=== PATIENT | female | born 1960 | race Caucasian/White ===

== ENCOUNTER 2016-09-09 13:02 | Emergency (ER) | payer OTHER ==
[2016-09-09] MEDS ORDERED: OLANZapine 10 MG/2 ML VIAL IM ONE (13:28)
[2016-09-09] MEDS ORDERED: OLANZapine DISINTEGR 10 MG TAB ONE (13:35)
[2016-09-09] MEDS ORDERED: OLANZapine DISINTEGR 10 MG TAB PO ONE ×2 (13:39→14:08)
--- NOTE | 2016-09-09 13:53 | EDPHY ---
H & P Smoking Status: Former smoker Time Seen by Provider: 09/09/16 13:05 HPI/ROS: HPI: 56-year-old female presents to emergency department brought in on M1 hold by Stephie MCDONOUGH from [facility] with chief concern manic episode/ bipolar exacerbation. It is unclear if patient stop taking her medications. Longstanding history of bipolar disorder requiring multiple inpatient hospitalizations. Presented to [facility] today not having slept for 2 nights, barely directable. She has a known history of rapid deterioration. She denies suicidal or homicidal ideation. She denies illicit drug or alcohol use. Denies fever, chills, myalgias, URI symptoms, shortness of breath, chest pain, abdominal pain, nausea, vomiting, diarrhea, rash. Mental health evaluation was performed at [facility]. They are awaiting placement at this time and medical clearance. ROS:10 point review of systems is negative other than as stated in HPI (Sophia Christian) Past Medical/Surgical History: Bipolar (Sophia Christian) Social History: Lives alone (Sophia Christian) Physical Exam: Vital signs stable, reviewed by me General: Awake, alert, calm, cooperative. No acute distress. Head: Normalocephalic. Atraumatic. EENT: PERRLA. EOMI. No pallor or injection. Anicteric. No nystagmus. No injection. TMs intact bilaterally with normal landmarks. No rhinnorhea, nasal passages clear. Oropharynx without redness, exudates, or lesions. Tonsils 2+ bilaterally, no exudates. Neck: Supple, nontender. No lymphadenopathy. Full range of motion. No meningismus. Respiratory: Breathing unlabored. Breath sounds equal bilaterally and clear to auscultation. No adventitious sounds. CV: Chest nontender, atraumatic. Heart rate regular. No murmur, distal pulses 2+ bilaterally. Brisk cap refill all extremities. GI: Abdomen soft, nontender. Bowel sounds normoactive and positive x4 quadrants. : No CVA or flank tenderness. Neuro: Alert. Oriented x 3. Speech clear. Nonfocal cranial nerves throughout. Sensation intact all extremities. Skin: Skin warm, dry, intact. No rashes, abrasions, or lacerations. Skin turgor normal. Extremities: Full range of motion in all 4 extremities. Strength 5+ all extremities. (Sophia Christian) Constitutional: Initial Vital Signs Temperature (C) 37.0 C 09/09/16 13:02 Heart Rate 85 09/09/16 13:02 Respiratory Rate 18 09/09/16 13:02 Blood Pressure 141/98 H 09/09/16 13:02 O2 Sat (%) 95 09/09/16 13:02 O2 Delivery Mode Room Air Allergies/Adverse Reactions: No Known Allergies Allergy (Unverified 02/14/14 22:13) Home Medications: Medication Instructions Recorded ARIPiprazole [Abilify Maintena] 400 mg IM Q28D 09/09/16 Divalproex ER [Depakote ER 500 MG 500 mg PO BID 09/09/16 (*)] QUEtiapine FUMARATE [Seroquel 100 100 mg PO HS 09/09/16 mg (*)] lamoTRIgine [LamICTAL] 50 mg PO HS 09/09/16 lamoTRIgine [Lamictal] 200 mg PO HS 09/09/16 Medical Decision Making ED Course/Re-evaluation: 1330:56-year-old female presents to ED brought in by Stephie MCDONOUGH on M1 hold for constantino. Mental health eval was performed at [facility]. They are waiting med clearance for placement. She is not suicidal or homicidal. She is very uncooperative and screaming at security an RN. She is given 10 mg PO Zyprexa. Vitals are stable. 1415: Continues to be quite manic and uncooperative. Given a 2nd 10 mg p.o. Zyprexa and 5 mg p.o. Haldol. 1555: Given 5 mg IM Haldol. Patient and another psych patient are yelling at each other. 1840: Was given 2 mg IM Ativan 2 hours ago. Patient complaining that she is unable to sleep. Given additional 2 mg IM Ativan. 184: This patient's care was transferred to my colleague Dr. Joselo Beaulieu. (Sophia Chirstian) 0700: Patient signed out to me by Dr. Omalley at shift change. She is awaiting placement. She has been cooperative while under my care. At shift change her care is transferred to Dr. Jose Lentz. Still awaiting placement at 3:50 p.m.. ( Carey Montano) 1500 Care assumed by me from Dr Montano pending placement. 2250 PT s/o to DR. Omalley pending placement. (Petar Lentz) Differential Diagnosis: Differential includes but is not limited to functional and major depression, situational depression, medication side-effect, anxiety, schizophrenia, bipolar , drug or alcohol related, acute psychosis, metabolic derangement, infection ( Sophia Christian) Other Provider: PHYSICIAN DOCUMENTATION: The patient was evaluated and managed by the nurse practitioner and myself. I have reviewed the chart and agree with the findings and plan of care as documented. In addition, I examined the patient myself at 1835. History confirmed as bipolar disorder. Physical findings as follows: Patient still pacing in the room but not verbally aggressive at this time. She has already gotten multiple sedative medications, see Sophia Christian note for details. Oral Seroquel 100 mg confirmed as her usual dose, she is agreeable to taking, ordered at this time. I am the secondary supervising physician. Signed out to Rod at 2100. Placement pending. (Joselo Beaulieu) Patient has been sleeping throughout my overnight shift. Mental continues to search for placement. Care transferred to Dr. Carey Montano at 7:00 a.m.. 11:00 p.m. September 10. Care transferred back to de by Dr. Reich. Patient has been evaluated by [facility]. They have lift her hold and are sending her to the [facility]. She is requesting another 25 mg Seroquel. 7:00 a.m. we continue to await transfer. Care transferred to Dr. Larissa Hutchinson. (Riky Omalley) I assumed care of the patient at 7:[address] Riky Omalley. At 10:50 a.m. transfer paperwork was signed by myself. Patient has been accepted by Dr. Bethea at [facility]. She has been cooperative. (Larissa Hutchinson) - Data Points Laboratory Results: Laboratory Results 09/09/16 13:55 09/09/16 13:55 Medications Given: Discontinued Medications Haloperidol (Haldol) 5 mg PO EDNOW ONE Stop: 09/09/16 14:09 Last Admin: 09/09/16 14:51 Dose: 5 mg Haloperidol Lactate (Haldol Injection) 5 mg IM EDNOW ONE Stop: 09/09/16 15:57 Last Admin: 09/09/16 16:15 Dose: 5 mg Haloperidol Lactate (Haldol Injection) 10 mg IM EDNOW ONE Stop: 09/09/16 20:38 Last Admin: 09/09/16 23:26 Dose: Not Given Lorazepam (Ativan Injection) 2 mg IVP EDNOW ONE Stop: 09/09/16 16:15 Last Admin: 09/09/16 16:15 Dose: Not Given Lorazepam (Ativan Injection) 2 mg IM EDNOW ONE Stop: 09/09/16 16:16 Last Admin: 09/09/16 16:15 Dose: 2 mg Lorazepam (Ativan Injection) 2 mg IM EDNOW ONE Stop: 09/09/16 18:39 Last Admin: 09/09/16 18:45 Dose: Not Given Nicotine (Nicoderm Cq) 14 mg TD EDNOW ONE Stop: 09/09/16 20:59 Last Admin: 09/09/16 21:35 Dose: 14 mg Nicotine (Nicoderm Cq) 21 mg TD EDNOW ONE Stop: 09/11/16 08:20 Last Admin: 09/11/16 08:20 Dose: 21 mg Nicotine Polacrilex (Nicorette) 2 mg B PRN ONE Stop: 09/11/16 02:51 Last Admin: 09/11/16 03:24 Dose: 2 mg Olanzapine (Zyprexa Im Injection) 10 mg IM EDNOW ONE Stop: 09/09/16 13:29 Last Admin: 09/09/16 13:40 Dose: Not Given Olanzapine (Zyprexa Zydis) 10 mg PO EDNOW ONE Stop: 09/09/16 13:40 Last Admin: 09/09/16 13:40 Dose: 10 mg Olanzapine (Zyprexa Zydis) 10 mg PO EDNOW ONE Stop: 09/09/16 14:09 Last Admin: 09/09/16 14:30 Dose: 10 mg Quetiapine Fumarate (Seroquel) 100 mg PO EDNOW ONE Stop: 09/09/16 18:46 Last Admin: 09/09/16 18:50 Dose: 100 mg Quetiapine Fumarate (Seroquel) 25 mg PO ONCE ONE Stop: 09/10/16 16:30 Last Admin: 09/10/16 17:02 Dose: 25 mg Quetiapine Fumarate (Seroquel) 25 mg PO EDNOW ONE Stop: 09/10/16 23:07 Last Admin: 09/10/16 23:22 Dose: 25 mg Quetiapine Fumarate (Seroquel) 25 mg PO EDNOW ONE Stop: 09/11/16 04:02 Last Admin: 09/11/16 04:22 Dose: 25 mg Quetiapine Fumarate (Seroquel) 25 mg PO EDNOW ONE Stop: 09/11/16 04:31 Last Admin: 09/11/16 04:56 Dose: Not Given Quetiapine Fumarate (Seroquel) 25 mg PO EDNOW ONE Stop: 09/11/16 08:29 Last Admin: 09/11/16 08:35 Dose: 25 mg Departure - Departure Disposition: Other Psych, Not [place] Clinical Impression: Bipolar disorder Qualifiers: Active/Remission status: currently active Current bipolar episode type: manic Current episode severity: severe Psychotic features: with psychotic features Qualified Code(s): F31.2 - Bipolar disorder, current episode manic severe with psychotic features Condition: Good Instructions: Bipolar Disorder (ED) Referrals: Patient,NotPresent [Primary Care Provider] - As per Instructions
[2016-09-09 14:08] LABS: % IMMATURE GRANULYOCYTES 0.3 % (0.0-1.1); ABSOLUTE IMMATURE GRANULOCYTES 0.02 10^3/uL (0.00-0.10); ADD DIFF? NO; ADD MORPH? NO; ADD SCAN? NO; ATYPICAL LYMPHOCYTE FLAG 0 (0-99); FRAGMENT RBC FLAG 10 (0-99); HEMATOCRIT 39.4 % (38.0-47.0); HEMOGLOBIN 13.6 g/dL (12.6-16.3); LEFT SHIFT FLG 0 (0-99); LIPEMIA HEMOLYSIS FLAG 90 (0-99); MEAN CELL HEMOGLOBIN 32.9 pg (27.9-34.1); MEAN CELL HEMOGLOBIN CONCENTR. 34.5 g/dL (32.4-36.7); MEAN CELL VOLUME 95.4 fL (81.5-99.8); MEAN PLATELET VOLUME 8.6 fL (8.7-11.7); PLATELET CLUMPS FLAG 10 (0-99); PLATELET COUNT 370 10^3/uL (150-400); RED BLOOD CELL COUNT 4.13 10^6/uL (4.18-5.33); RED CELL DISTRIBUTION WIDTH 12.6 % (11.5-15.2)
[2016-09-09] MEDS ORDERED: HALOPERIDOL 5 MG TAB PO ONE (14:08)
[2016-09-09 14:23] LABS: ANION GAP 11 mEq/L (8-16); CALCIUM 10.4 mg/dL (8.5-10.4); CARBON DIOXIDE 24 mEq/l (22-31); CHLORIDE 104 mEq/L (97-110); CREATININE 0.7 mg/dL (0.6-1.0); ETHANOL SERUM < 10 mg/dL (0-10); GLOMERULAR FILTRATION RATE > 60; GLUCOSE 87 mg/dL (70-100); POTASSIUM 3.9 mEq/L (3.5-5.2); SODIUM 139 mEq/L (134-144)
[2016-09-09] MEDS ORDERED: HALOPERIDOL LACT 5 MG/ML INJ IM ONE ×2 (15:56→20:37)
[2016-09-09] MEDS ORDERED: LORazepam 2 MG/ML INJ ONE ×2 (16:01→18:38)
[2016-09-09] MEDS ORDERED: LORazepam 2 MG/ML INJ IVP ONE (16:14)
[2016-09-09] MEDS ORDERED: LORazepam 2 MG/ML INJ IM ONE ×2 (16:15→18:38)
[2016-09-09] MEDS ORDERED: QUEtiapine FUMARATE 25 MG TAB PO ONE (18:45)
[2016-09-09] MEDS ORDERED: QUEtiapine FUMARATE 100 MG TAB ONE (18:47)
[2016-09-09] MEDS ORDERED: HALOPERIDOL LACT 5 MG/ML INJ ONE (20:38)
[2016-09-09] MEDS ORDERED: NICOTINE 14 MG/24 HR PATCH TD ONE (20:58)
[2016-09-10] MEDS ORDERED: QUEtiapine FUMARATE 25 MG TAB PO ONE (16:29)
[2016-09-10] MEDS ORDERED: QUEtiapine FUMARATE 50 MG TAB PO ONE (23:06)
[2016-09-11] MEDS ORDERED: NICOTINE POLACRILEX 2 MG GUM B ONE (02:50)
[2016-09-11] MEDS ORDERED: QUEtiapine FUMARATE 50 MG TAB PO ONE ×2 (04:01→08:28)
[2016-09-11] MEDS ORDERED: QUEtiapine FUMARATE 25 MG TAB PO ONE (04:30)
[2016-09-11] MEDS ORDERED: NICOTINE 21 MG/24 HR PATCH TD ONE (08:19)
[2016-09-11] MEDS ORDERED: NICOTINE POLACRILEX 2 MG GUM B PRN (08:20)
[2016-09-11] MEDS ORDERED: QUEtiapine FUMARATE 100 MG TAB ONE (08:30)
[2016-09-11 10:51] VITALS: BP 117/82; PULSE 81; RESP 16; TEMP 97.9; O2SAT 98
== END 2016-09-11 11:16 ==
LOC: EDUNIT#
DX: F31.2 Bipolar disorder, current episode manic severe with psychotic features (principal)
CPT/HCPCS: 96372; 99285; J2060; 80305; G0480

== ENCOUNTER 2017-10-05 21:46 | Emergency (ER) | payer OTHER, MEDICAID ==
[2017-10-05 21:51] VITALS: BP 139/89
--- NOTE | 2017-10-05 22:09 | EDPHY ---
H & P Stated Complaint: STATES L KNEE IS BONEON BONE Time Seen by Provider: 10/05/17 21:54 HPI/ROS: Chief Complaint: Left knee pain HPI: 57-year-old woman presenting with worsening left knee pain. Patient states that the knee is "bone on bone". She is taking diclofenac as prescribed by her primary care physician, Dr. Nolan. They have discussed referral to Orthopedics for a knee replacement however the patient does not want this as her brother had complications from the surgery. She denies any new injury. Has continued to have pain. No fevers or chills. No calf pain or swelling. Does have pain with ambulation. It improves with rest. No redness or warmth. Does have some mild chronic rash on her left ankle which was secondary to lithium toxicity in the past. Otherwise states that this has been going on for years and she is just had enough. No recent travel or long periods of immobilization. ROS: 10 point Review of Systems is negative except as noted in the HPI. PMH: Bipolar disorder Social History: Positive smoking, [no] alcohol, [ no recreational drug use] Family History: [non-contributory] Physical Exam: General: Awake, alert, no acute distress Left knee: No swelling, no erythema, it is not warm to touch. She is able to flex past 90. No pain with medial or lateral load bearing. Calfs are equal in size in measurement. Nontender, soft compartments. Normal perfusion, 2+ dorsalis pedis pulses. Sensations intact in all dermatomes. Skin: No rash - Personal History Current Tetanus/Diphtheria Vaccine: Yes Current Tetanus Diphtheria and Acellular Pertussis (TDAP): Yes - Medical/Surgical History Hx Asthma: No Hx Chronic Respiratory Disease: No Hx Diabetes: No Hx Cardiac Disease: No Hx Renal Disease: No Hx Cirrhosis: No Hx Alcoholism: No Hx HIV/AIDS: No Hx Splenectomy or Spleen Trauma: No Other PMH: Bipolar, tubal ligation, pneumothorax, rt arm cut down - Social History Smoking Status: Current every day smoker Constitutional: Initial Vital Signs Temperature (C) 37.0 C 10/05/17 21:48 Heart Rate 102 H 10/05/17 21:48 Respiratory Rate 18 10/05/17 21:48 Blood Pressure 139/89 H 10/05/17 21:48 O2 Sat (%) 97 10/05/17 21:48 O2 Delivery Mode Room Air Allergies/Adverse Reactions: lithium Allergy (Verified 10/05/17 21:51) Home Medications: Medication Instructions Recorded ARIPiprazole [Abilify Maintena] 400 mg IM Q28D 09/09/16 Divalproex ER [Depakote ER 500 MG 500 mg PO BID 09/09/16 (*)] QUEtiapine FUMARATE [Seroquel 100 100 mg PO HS 09/09/16 mg (*)] lamoTRIgine [LamICTAL] 50 mg PO HS 09/09/16 lamoTRIgine [Lamictal] 200 mg PO HS 09/09/16 Fluconazole [Diflucan] 50 mg PO 10/05/17 Medical Decision Making ED Course/Re-evaluation: 49-year-old woman with chronic left knee arthritis. No signs of infection or vascular process at this time. Will refer her to Orthopedics for follow-up. She will continue diclofenac and can add on Tylenol as needed. Departure - Departure Disposition: Home, Routine, Self-Care Clinical Impression: Arthritis Condition: Good Instructions: Osteoarthritis (ED) Additional Instructions: Follow up with orthopedic surgeon in 3-4 days for further evaluation. Continue taking diclofenac as prescribed. You may take acetaminophen, 1000 mg up to 3 times a day. Referrals: Liliya Nolan [Primary Care Provider] - As per Instructions Parvez Burns MD [Medical Doctor] - As per Instructions
== END 2017-10-05 22:13 | disposition home or self-care (01) ==
DX: M17.12 Unilateral primary osteoarthritis, left knee (principal); F17.200 Nicotine dependence, unspecified, uncomplicated

== ENCOUNTER → 2017-10-10 | Outpatient (CLI) | payer OTHER, MEDICAID | LOC: FIMAGING 07:45 | PROVIDERS: ATTEND Physician Assistant | DX: Z12.31 Encounter for screening mammogram for malignant neoplasm of breast (principal) ==

== ENCOUNTER 2017-10-11 21:13 | Inpatient (IN) | payer OTHER, MEDICAID ==
[2017-10-11] MEDS ORDERED: LORazepam 0.5 MG TAB PO PRN (23:20)
[2017-10-11] MEDS ORDERED: MAGNESIUM HYDROXIDE 30 ML UDCUP PO PRN (23:20)
[2017-10-11] MEDS ORDERED: NICOTINE POLACRILEX 2 MG GUM B PRN (23:20)
[2017-10-11] MEDS ORDERED: OLANZapine 5 MG TAB PO PRN (23:21)
[2017-10-11] MEDS ORDERED: DIVALPROEX NA 500 MG TAB PO SCH (23:30)
[2017-10-11] MEDS: ACETAMINOPHEN 325 MG TAB PO PRN (23:54)
[2017-10-12] MEDS: ACETAMINOPHEN 325 MG TAB PO PRN (07:51)
[2017-10-12] MEDS: CLINDAMYCIN 150 MG CAP PO SCH ×3 (07:51→19:03)
[2017-10-12] MEDS: DICLOFENAC SODIUM 75 MG TAB PO SCH ×3 (09:40→19:03)
[2017-10-12] MEDS: DIVALPROEX ER 500 MG TAB PO SCH ×2 (15:57→19:03)
[2017-10-12] MEDS ORDERED: CLINDAMYCIN 150 MG CAP PO SCH (16:00)
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
[2017-10-12] MEDS ORDERED: clonazePAM 0.5 MG TAB PO PRN (17:13)
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
[2017-10-12] MEDS ORDERED: clonazePAM 0.5 MG TAB PO SCH (21:00)
[2017-10-12] MEDS ORDERED: QUEtiapine FUMARATE 100 MG TAB PO SCH (21:00)
[2017-10-13] MEDS: DIVALPROEX ER 500 MG TAB PO SCH ×2 (08:21→21:22)
[2017-10-13] MEDS: CLINDAMYCIN 150 MG CAP PO SCH ×3 (08:22→21:23)
[2017-10-13] MEDS: DICLOFENAC SODIUM 75 MG TAB PO SCH ×2 (08:23→21:22)
[2017-10-13] MEDS: ACETAMINOPHEN 325 MG TAB PO PRN (09:52)
[2017-10-13] MEDS: MAG HYDROX/AL HYDROX/SIMETH 30 ML UDCUP PO PRN ×2 (11:33→21:03)
--- NOTE | 2017-10-13 12:33 | SOAPPROG ---
SOAP Progress Note Assessment/Plan: Assessment: bipolar I disorder; based on this interview, staff report, OP provider impression based on patient's history, and BOC's impression based on patient's history, her mood is currently unstable and patient requires further hospitalization for observation, medication management, and evaluation. Plan: Review psychotropic medication treatment informed consent and recommendations. Medication changes include increasing Seroquel to 200 mg po QHS for insomnia. No other medication changes at this time as more time is needed to determine ongoing tolerability and efficacy. Plan is to continue to monitor her for response and side effects from medications, and ongoing monitoring and evaluation of constantino, depression, and safety. She could benefit from continued inpatient hospitalization for crisis stabilization, safety, and medication evaluation. Next steps are for her to meet with her field care coordinator to plan a safe discharge plan and establish outpatient services for ongoing treatment. Consider discharge next week if she is in stable condition, safe, and has a safe discharge plan. 10/13/17 12:34 Subjective: Following up with patient for evaluation of constantino, depression, and safety. The patient reports she is doing good, states she feels great; reports feeling anxious about being here, reports she did not get much sleep last night as she does not feel tired. She reports she feels like she needs to get some sleep though because when she doesnt sleep it triggers manic episode for her. She requests increase in Seroquel to 200 mg po QHS to target insomnia. She reports no side effects from medications, and reports no SI. Patient agrees to stay on voluntary basis. Objective: Vital Signs Temp Pulse Resp BP Pulse Ox 36.7 C 87 14 124/78 H 98 10/13/17 06:00 10/13/17 06:00 10/13/17 06:00 10/13/17 06:00 10/13/17 06:00 Consulted with treatment team staff for update on patients progression in treatment. Nursing reports patient is irritable and hyperactive on the unit; they report the following: Sleep: 3.5 hours Appetite: eating all meals Med adherence: taking medications as prescribed Activity in groups: attending and engaging in groups; art therapist reports patient was grandiose during yesterdays after therapy group Side effects: none reported EPS/akathisia: none reported; none noted SI: denies She is currently tolerating Depakote ER 500 mg po QAM and 1,000 mg po QHS for mood and Seroquel 100 mg po QHS for mood with no reports of side effects, and with good response for symptoms. She reports taking Klonopin 0.25 mg po yesterday, and this was beneficial for anxiety. Patient is irritable throughout interview and is using inappropriate language and become agitated when asked interview questions. She has little to no insight at this time regarding her current constantino. Conference call with patients OP providers, Dr. Garcia (psychiatrist) and Sophia Mccarthy (therapist) and patient between [id number] Garcia and Sophia recommend patient remain hospitalized for observation as based on the patients history, they both agree she is currently experiencing a cnostantino episode. The patient becomes tearful during call, and agrees to stay voluntarily basis until her mood is stabilized. Family meeting with patient and her brother, Lars [id number]. Lars reports Tamela is not at her baseline, and agrees that she stay in hospital over the weekend to be monitored. The patient again agrees to remain hospitalized voluntarily and agrees she needs close observation due to her current mood instability. MSE The patient presents casually dressed and with good hygiene, and looks stated age. She is sitting, posture is upright, and position is relaxed. She appears awake, alert, and responds appropriately and reasonably during interview. She is engaged, relates well to interviewer, and emotional facial expression is appropriate to situation and changes appropriately with topic. She is cooperative, makes comfortable eye contact, and movements are voluntary, deliberate, coordinated, and smooth and even with no inappropriate movements. She makes laryngeal sounds effortlessly and shares conversation appropriately; pace of conversation is appropriate, and stream of talking is fluent; articulation is clear and understandable; word choice is effortless and appropriate for education level; completes sentences, occasionally pausing to think; rate and volume are appropriate for interview and setting. She reports mood as anxious. Her affect is irritable and expansive, congruent with mood, and appropriate to speech and inappropriate to circumstances. She has illogical thinking, with no loose associations, no tangential thought, thought blocking, concrete thinking, or any other signs of formal thought disorder. She denies suicidal and homicidal ideation, and denies hallucinations and delusions. She appears to be poor historian with poor judgement and poor insight into current condition. No apparent dysfunction in recent or remote memory noted, and no evidence of gross cognitive dysfunction noted at any point during the interview. - Time Spent With Patient Time Spent With Patient: 40 minutes Met with patient individually; conference call with patient, and her OP providers, Dr. Garcia and Sophia Ocasio, and family meeting with patient and her brother , Lars. - Pending Discharge Pending Discharge Within 24 Hours: No Pending Discharge Within 48 Hours: No ICD10 Worksheet Patient Problems: Problems Problem Status Onset Bipolar 1 disorder Acute
[2017-10-13] MEDS ORDERED: QUEtiapine FUMARATE 100 MG TAB PO SCH ×2 (12:44→21:00)
[2017-10-13] MEDS: QUEtiapine FUMARATE 100 MG TAB PO SCH ×2 (15:53→21:23)
[2017-10-14] MEDS: DIVALPROEX ER 500 MG TAB PO SCH ×3 (07:55→21:16)
[2017-10-14] MEDS: CLINDAMYCIN 150 MG CAP PO SCH ×3 (07:56→21:17)
[2017-10-14] MEDS: DICLOFENAC SODIUM 75 MG TAB PO SCH ×2 (07:56→21:16)
[2017-10-14] MEDS: QUEtiapine FUMARATE 100 MG TAB PO SCH ×3 (07:56→21:17)
--- NOTE | 2017-10-14 09:10 | SOAPPROG ---
SOAP Progress Note Assessment/Plan: ASSESSMENT: bipolar I disorder; currently hypomania presentation; mood is currently unstable--was not med adherent yesterday. PLAN: Review psychotropic medication treatment informed consent and recommendations. Medication changes include Seroquel 200 mg po QHS. Dispense Depakote HS does in two 500 mg tabs, consider Depakote level on Tuesday AM if patient takes as prescribed over the next 3 days. No other medication changes at this time as more time is needed to determine ongoing tolerability and efficacy. Plan is to continue to monitor her for response and side effects from medications, and ongoing monitoring and evaluation of constantino, depression, and safety. She could benefit from continued inpatient hospitalization for crisis stabilization, safety, and medication evaluation. Next steps are for her to meet with her nurse healthcare manager to plan a safe discharge plan and establish outpatient services for ongoing treatment. Consider discharge next week if she is in stable condition, safe, and has a safe discharge plan. Subjective: Following up with patient for evaluation of constantino, depression, and safety. The patient reports she is doing well this morning; states she slept 6 hours last night and feels more rested today. She reports she refused her AM dose of Seroquel as this medication makes her too drowsy, and she refused her AM dose of Depakote ER 500 mg as she does not feel as though she needs to take this medication. She reports she refused her HS dose of Depakote ER 1,000 mg as the pill is too large and difficult for her to swallow. She agrees to Seroquel 200 mg po QHS and agrees to continue Depakote ER if the medication is administered in two 500 mg pills for HS dose rather than one 1,000 mg pill. The patient agrees to stay voluntarily for further monitoring and medication management. She agrees to take medications consistently in order to reach therapeutic blood levels, and agrees to have a Depakote level drawn on Tuesday of next week. She reports her mood is good, reports no SEs, and denies SI/HI, A/V hallucinations, and delusions. Objective: Vital Signs Temp Pulse Resp BP Pulse Ox 36.6 C 95 16 109/80 96 10/14/17 06:00 10/14/17 06:00 10/14/17 06:00 10/14/17 06:00 10/14/17 06:00 Consulted with treatment team staff for update on patients progression in treatment. Nursing reports patient is irritable and hyperactive on the unit; they report the following: she slept 6 hours last night, is eating all of her meals, refused her HS dose of Depakote ER, and refused her AM Seroquel and Depakote ER. She is engaging in groups, and has been using the phone often. She reports no side effects to medications, and no EPS/akathisia has been reported or noted. She denies SI. Attire is appropriate in casual dress. Grooming status is disheveled. Ambulation is independent. Gait is normal and coordinated. Posture is normal and relaxed, eye contact is appropriate. Motor activity is overactive, unable to sit still, with on involuntary movements. Attitude is uncooperative at first , then becomes cooperative and agreeable. Speech is pressured, increased, with irritable tone, high volume, and evidencing no impairments. She reports mood as good, with expansive affect. Thought process is illogical at times; no loose associations, no SI/HI, A/V hallucinations, or delusions. Patient does not appear to be responding to internal stimuli. Orientation x3. Insight and judgment are impaired. No apparent dysfunction in recent or remote memory noted , and no evidence of gross cognitive dysfunction noted at any point during the interview. - Time Spent With Patient Time Spent With Patient: 30 minutes; met with patient individually. - Pending Discharge Pending Discharge Within 24 Hours: No Pending Discharge Within 48 Hours: No ICD10 Worksheet Patient Problems: Problems Problem Status Onset Bipolar 1 disorder Acute
[2017-10-14] MEDS: MAG HYDROX/AL HYDROX/SIMETH 30 ML UDCUP PO PRN (21:34)
[2017-10-15] MEDS: ACETAMINOPHEN 325 MG TAB PO PRN ×2 (05:35→20:39)
[2017-10-15] MEDS: DIVALPROEX ER 500 MG TAB PO SCH (08:46)
[2017-10-15] MEDS: DICLOFENAC SODIUM 75 MG TAB PO SCH ×2 (08:46→21:04)
--- NOTE | 2017-10-15 15:07 | SOAPPROG ---
SOAP Progress Note Assessment/Plan: Assessment: Per Macario Ramirez's note: Assessment/Plan: ASSESSMENT: bipolar I disorder; currently hypomania presentation; mood is currently unstable--was not med adherent yesterday. Plan: 10/15/17 15:03 1. Patient continues to complain about the size of her Depakote pills, but she did agree to take them today. 2. Patient agrees to talk to Dr. Garcia at her next appointment, on 10/19 at 1530, about switching meds. However, MD warned patient about risks of changing mood stabilizers. MD advised patient that stopping a med that has been effective can often lead to acute destabilization. Patient acknowledged her understanding of this risk. 3. Patient appears more social and cheerful on unit. She has also been getting "better sleep" that past 2 nights. 4. Patient plans to travel to [place] on 10/31 to visit family. 5. Likely to d/c on Tuesday or Tuesday. Has f/u at [facility] on 10/18 and 10/19. Subjective: Met with patient, reviewed chart and d/w staff. Patient presents less labile today. She is talkative and cheerful when MD visits with her. She denies any physical complaints and denies any SE's from meds. She doesn't want to continue on Depakote b/c of past SE's including weight gain and hair loss. She agrees to discuss other options with her outpatient provider, Dr. Garcia, at [facility] on 10/19. Objective: Vital Signs Temp Pulse Resp BP Pulse Ox 36.4 C 100 16 104/67 96 10/15/17 06:00 10/15/17 06:00 10/15/17 06:00 10/15/17 06:00 10/15/17 06:00 MSE: Affect: Bright, cheerful Mood: "Good" TP: Linear TC: Denies any SI/HI, no AH/VH Insight/Judgment: Improved - Time Spent With Patient Time Spent With Patient: 15" - Pending Discharge Pending Discharge Within 24 Hours: No Pending Discharge Within 48 Hours: No ICD10 Worksheet Patient Problems: Problems Problem Status Onset Bipolar 1 disorder Acute
[2017-10-15] MEDS: DIVALPROEX ER 250 MG TAB PO SCH (21:04)
[2017-10-15] MEDS: QUEtiapine FUMARATE 100 MG TAB PO SCH (21:05)
[2017-10-16 06:44] VITALS: BP 96/74
[2017-10-16] MEDS: DIVALPROEX ER 250 MG TAB PO SCH ×2 (08:29→18:43)
[2017-10-16] MEDS: DICLOFENAC SODIUM 75 MG TAB PO SCH ×2 (08:30→21:18)
--- NOTE | 2017-10-16 14:18 | SOAPPROG ---
SOAP Progress Note Assessment/Plan: Assessment: Per Macario Ramirez'sylvia note: Assessment/Plan: ASSESSMENT: bipolar I disorder; currently hypomania presentation; mood is currently unstable--was not med adherent yesterday. Plan: 10/15/17 15:03 1. Patient continues to complain about the size of her Depakote pills, but she did agree to take them today. 2. Patient agrees to talk to Dr. Garcia at her next appointment, on 10/19 at 1530, about switching meds. However, MD warned patient about risks of changing mood stabilizers. MD advised patient that stopping a med that has been effective can often lead to acute destabilization. Patient acknowledged her understanding of this risk. 3. Patient appears more social and cheerful on unit. She has also been getting "better sleep" that past 2 nights. 4. Patient plans to travel to [place] on 10/31 to visit family. 5. Likely to d/c on Tuesday or Tuesday. Has f/u at [facility] on 10/18 and 10/19. 10/16/17 14:14 1. VPA level in AM. 2. Patient says she is willing to stay on Depakote "for a while." 3. Patient denies all sxs of constantino, psychosis and denies any SI/HI. 4. Likely d/c on Tue or Tue w/ f/u at [facility]. Subjective: Met with patient, reviewed chart and d/w staff. Patient presents bright and cheerful this AM. She is well-groomed and smiling. She denies any racing thoughts, elated mood, grandiose delusions, decreased need for sleep and increased goal-directed activity. She has no s/s of pressured speech, delusions , hallucinations. She denies any SI/HI. She slept 6 hrs last night which is improvement over previous 2 nights. Objective: Vital Signs Temp Pulse Resp BP Pulse Ox 36.4 C 94 16 96/74 L 96 10/16/17 06:00 10/16/17 06:00 10/16/17 06:00 10/16/17 06:00 10/16/17 06:00 MSE: Affect: Euthymic Mood: "Good" TP: Tangential TC: Denies any SI/HI, no AH /VH Insight/Judgment: Improved - Time Spent With Patient Time Spent With Patient: 15" - Pending Discharge Pending Discharge Within 24 Hours: Yes Pending Discharge Date: 10/17/17 (Likely to d/c Tue or Tue) Pending Discharge Time: 11:00 ICD10 Worksheet Patient Problems: Problems Problem Status Onset Bipolar 1 disorder Acute
[2017-10-16] MEDS: MAG HYDROX/AL HYDROX/SIMETH 30 ML UDCUP PO PRN (14:57)
[2017-10-16] MEDS: QUEtiapine FUMARATE 100 MG TAB PO SCH (21:19)
[2017-10-17] MEDS: DIVALPROEX ER 250 MG TAB PO SCH (08:20)
[2017-10-17] MEDS: DICLOFENAC SODIUM 75 MG TAB PO SCH (08:21)
--- NOTE | 2017-10-17 12:57 | BDS ---
[f rep st] BEHAVIORAL HEALTH DISCHARGE SUMMARY REASON FOR ADMISSION: The patient was admitted in a hypomanic state. She had been working for some time now with her outpatient psychiatrist, Dr. Garcia, and Dr. Garcia is familiar with her manic episodes and realized the patient was headed toward a manic episode, was non-adherent to prescribed medications; therefore, referred the patient for inpatient psychiatric treatment for close monitoring and observation as the patient has history of high risk behavior during constantino episodes including a constantino episode that led to incarceration. The patient was not med compliant at the time of her admission. She was admitted for evaluation, medication, monitoring and for stabilization and safety. ADMITTING DIAGNOSIS: Bipolar 1 disorder, severe, most recent episode constantino. ADMISSION PHYSICAL EXAM: Completed by Kalpana Monroy, dated 10/12/2017. For more details, see the H and P completed by Kalpana. ADMISSION LABS: On 10/13/2017: Hemoglobin A1C was 5.2. All other chemistry was within normal limits except for LDL cholesterol was low at 73. Depakote level, or valproic acid level, at time of discharge was 70.3. This lab was drawn at 0600 on 10/17/2017. HOSPITAL COURSE: The most prominent symptoms and behaviors while the patient was here were the following: Upon admission, the patient was in a hypomanic state. She was hyperactive, intrusive, and labile. Target symptoms during hospitalization were constantino. Treatment modalities utilized were as follows: Milieu and group therapy, Depakote ER 500 mg p.o. q. a.m. and 1000 mg p.o. q. h.s. were continued to target constantino symptoms. This medication was tolerated with no report of side effects and with good response. Seroquel 100 mg p.o. q. h.s. was continued to target constantino and insomnia symptoms. This medication was tolerated with no reported side effects. However, the response was poor. Therefore, this dose was increased to 200 mg with no report of side effects and with good response. The patient upon admission was only sleeping 2 to 3 hours a night and after increasing the Seroquel and the patient taking the Depakote as prescribed, the patient's sleep improved and she has slept 6 to 7 hours night, Tuesday night, Tuesday night, and Tuesday night. The patient has improved considerably with no signs of psychiatric symptoms and no psychiatric symptoms expressed at the time of discharge. The patient reports she has improved since her admission. States she is in a stable condition and feels safe to discharge and she contracts for safety. Overall, the patient's response to treatment was good. There were no adverse or unexpected results of treatment. The patient was safe throughout her stay. She was engaged in treatment, engaged in groups, and was appropriate with staff and other patients. The treatment team consensus is that the patient is in stable condition and is safe to discharge today. CONDITION AT DISCHARGE: The patient is in stable condition, is no longer a danger to self, others, and is not gravely disabled due to a mental illness. The patient is no longer in need of inpatient level of care and can safely and effectively be treated within the community. The patient's level of risk at the time of discharge is low. MENTAL STATUS EXAM: The patient is casually dressed with good hygiene and looks stated age. The patient is sitting. Posture is upright and position is relaxed. The patient appears awake, alert, and responds appropriately and reasonably during interview. The patient is engaged, relates well to this interviewer, and emotional facial expression is appropriate to situation and changes appropriately with topic. The patient is cooperative, makes comfortable eye contact, and movements are voluntary, deliberate, coordinated, and smooth and even with no inappropriate movements. The patient makes laryngeal sounds effortlessly and shares conversation appropriately. The pace of conversation is appropriate and stream of talking is fluent. Articulation is clear and understandable. Word choice is effortless and appropriate for education level. Complete sentences, occasionally pausing to think, rate and volume are appropriate for interview and setting. The patient reports mood as euthymic. The patient's affect is stable with full, variable range, congruent with mood and appropriate to speech and circumstances. The patient has linear, logical thinking with no loose associations, tangential thought, thought blocking, concrete thinking, or any other signs of formal thought disorder. The patient denies suicidal and homicidal ideation, and denies hallucinations and delusions. The patient appears to be a reliable historian with sound judgement and good insight into current condition. The patient has no apparent dysfunction in recent or remote memory, and no evidence of gross cognitive dysfunction noted at any point during the interview. DISCHARGE DIAGNOSIS: Bipolar 1 disorder, severe, in stable condition. DISCHARGE MEDICATIONS: The patient was not provided any prescriptions at the time of discharge as she states she has the prescriptions at home and she is seeing her psychiatric outpatient provider tomorrow. The patient is to continue Depakote ER 500 mg p.o. q. a.m. and 1000 mg p.o. q. h.s. and Seroquel 200 mg p.o. q. h.s. The patient agrees to continue these medications as prescribed. DISPOSITION: The patient plans to take a bus, [employer], from [place] to [place] to her car, and then she plans to go home. Her brother Lars is aware she is discharging today and he agrees with this plan. FOLLOWUP: guest services coordinator reports the appropriate outpatient followup services have been established and outpatient appointments have been scheduled. The patient has received written instructions with time and dates about patient followup appointments. The patient is to follow up with her outpatient psychiatrist, Dr. Garcia, and her therapist, Sophia Ocasio tomorrow as schedule. The following followup recommendations were provided to the patient at discharge: 1. Continue psychotropic medications as prescribed and attend appointments as scheduled. 2. Report any side effects to your psychiatric outpatient provider, a primary care provider, or other healthcare professional. 3. Address any questions or problems concerning the psychotropic medications with your psychiatric outpatient providers, PCP, or other healthcare professional. 4. Contact [facility] or [facility] or go to the nearest emergency room if you ever are a danger to yourself, others, or unable to care for yourself. 5. As soon as possible, establish a routine medication management treatment with a psychiatric provider, establish routine therapy appointments, and follow up with a primary care provider. LEGAL COURSE: The patient was admitted on an M1 hold and then after M1 , was agreeable to voluntary hospitalization. The patient was discharged independently and voluntarily from the hospital today. ATTITUDE AT TIME OF DISCHARGE: The patient's attitude is positive at time of discharge, and the patient reports looking forward to discharging today. The patient reports she is safe at discharge, is no longer a danger to herself or others, and is in stable condition and contracts for safety. The patient states she will continue medications as prescribed and established medication management treatment with an outpatient provider after discharge. The patient reports she understands the information that has been provided to her, and she understands, accepts, and agrees to psychotropic medications. The patient reports internal protective factors as the coping skills she has learned while hospitalized here and she plans to continue to practice these coping skills after discharge. The patient reports external protective factors as her family and friends. The patient describes looking forward to being home after discharge today. The patient describes future plans as moving to a different home with her friend. The patient reports her family and friends look forward to her discharging today. The patient's brother, Lars, reports he agrees with the patient's discharge today, states she has a safe plan to discharge, and plans to continue to support the patient in her ongoing treatment. There were no labs or studies pending at the time of discharge. The following psychotropic medication treatment, informed consent and recommendations were provided to the patient at the time of discharge. The patient reports she understands, accepts, and agrees with the information that has been provided. PSYCHOTROPIC MEDICATION TREATMENT INFORMED CONSENT and RECOMMENDATIONS: Review nature of condition, diagnosis, and prognosis. Review nature and purpose of psychotropic medication treatment. Review type of psychotropic medications being prescribed. Review risk and benefits of psychotropic medication treatment. Review probable length of time will need to take medications. Review risk and benefits of not undergoing psychotropic medication treatment. Review alternative treatments to psychotropic medications. Review psychotropic medications contraindications, side effects, and importance of reporting any side effects to a psychiatric provider, primary care provider, or other health healthcare administration intern. Review importance of her asking a psychiatric provider or primary care provider any questions or problems concerning the psychotropic medications. Review importance of reporting to a psychiatric provider, primary care provider, or other health healthcare administration intern if she plans to or becomes . Review safety plan and the importance to contact [facility] or [facility] , or go to the nearest emergency room, if ever a danger to yourself/others, or unable to care for yourself. Recommend upon discharge to establish routine medication management treatment with a psychiatric provider, establish routine therapy appointments, and follow-up with a primary care provider. Verify patient understands, accepts, and agrees to the information that has been provided. /[id number]
== END 2017-10-17 12:30 | disposition home or self-care (01) | DRG 885 ==
LOC: BBEH 22:35
PROVIDERS: ADMIT Registered Nurse; ATTEND Registered Nurse
DX: F31.13 Bipolar disorder, current episode manic without psychotic features, severe (principal)
CPT/HCPCS: 97161-GP

== ENCOUNTER 2017-10-26 22:40 | Inpatient (IN) | payer OTHER, MEDICAID ==
[~2017-10-26 22:40] MED LIST: LORazepam 0.5 MG TAB PO PRN; MAGNESIUM HYDROXIDE 30 ML UDCUP PO PRN; NICOTINE POLACRILEX 2 MG GUM B PRN; OLANZapine DISINTEGR 5 MG TAB PO PRN
[2017-10-27] MEDS: ACETAMINOPHEN 325 MG TAB PO PRN ×2 (06:46→13:37)
[2017-10-27] MEDS ORDERED: ARIPIPRAZOLE (ABILIFY MAINTENA) 400 MG VIAL IM ONE (11:32)
[2017-10-27] MEDS: clonazePAM 0.5 MG TAB PO PRN ×2 (12:02→16:01)
[2017-10-27] MEDS: MAG HYDROX/AL HYDROX/SIMETH 30 ML UDCUP PO PRN (14:47)
[2017-10-27] MEDS: NICOTINE 14 MG/24 HR PATCH TD SCH (14:47)
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
--- NOTE | 2017-10-27 16:41 | SOAPPROG ---
SOAP Progress Note Assessment/Plan: Assessment: Unilateral lower leg swelling with DVT ruled out, fractures ruled out, and no signs or symptoms of cellulitis. * Will check labs including CMP regarding renal and liver function, CBC regarding possible infection verses eosinophilia which could indicate parasitosis, and a D-dimer. If D-dimer is high she should have a repeat ultrasound in case a DVT was missed. * If evaluation here is unrevealing, consider abdominal imaging to rule out any mass lesion which could be causing venous or lymphatic obstruction. Will order emollient for dry skin. 10/27/17 16:41 Subjective: Asked to see patient regarding swollen leg. She has swelling to her left lower leg. It has been there for several weeks. Per chart review, on her prior inpatient behavioral health stay it was reported that there was an ultrasound study to rule out deep venous thrombosis which was negative in September of this year. She had x-rays of the ft and ankle subsequent to her psychiatric hop hospitalization and these were negative for any fractures. She denies pain and she is able to weight bear and ambulate normally. She denies cough or dyspnea. She denies fever or chills. She is not aware of any recent injury. She denies swelling in her groin. There is no abdominal pain or bloating. Objective: Vital Signs Temp Pulse Resp BP Pulse Ox 36.8 C 87 16 117/83 H 98 10/27/17 06:00 10/27/17 06:00 10/27/17 06:00 10/27/17 06:00 10/27/17 06:00 Physical Exam - Physical Exam General Appearance: WD/WN, alert, no apparent distress Skin: normal color, warm/dry, other (Dry skin on bilateral lower legs.), No rash Extremities: normal range of motion, non-tender, swelling (2+ pitting edema on the left lower extremity below the knee.), No calf tenderness Neuro/Psych: alert, normal mood/affect, oriented x 3, No abnormal gait ICD10 Worksheet Patient Problems: Problems Problem Status Onset Bipolar 1 disorder Acute
[2017-10-27] MEDS: AQUAPHOR OINTMENT 3.5 OZ JAR TP SCH (19:58)
[2017-10-27] MEDS: lamoTRIgine 25 MG TAB PO SCH (19:58)
[2017-10-27] MEDS ORDERED: clonazePAM 0.5 MG TAB PO SCH (21:00)
[2017-10-27 23:36] LABS: PLATELET COUNT 325 10^3/uL (150-400)
[2017-10-28] MEDS: clonazePAM 0.5 MG TAB PO PRN (04:12)
[2017-10-28] MEDS: ACETAMINOPHEN 325 MG TAB PO PRN ×2 (07:16→15:15)
[2017-10-28] MEDS ORDERED: clonazePAM 0.5 MG TAB PO SCH (10:14)
[2017-10-28] MEDS: NICOTINE 14 MG/24 HR PATCH TD SCH (10:49)
[2017-10-28] MEDS: AQUAPHOR OINTMENT 3.5 OZ JAR TP SCH ×3 (12:30→22:15)
[2017-10-28] MEDS ORDERED: DIVALPROEX ER 500 MG TAB PO SCH (13:15)
--- NOTE | 2017-10-28 13:50 | SOAPPROG ---
SOAP Progress Note Assessment/Plan: Assessment: Bipolar I disorder. Currently hypomania (decreased need for sleep, irritable, tangential). No improvement noted. (see subjective/objective note). Patient could benefit from continued inpatient hospitalization for crisis stabilization , safety, and medication evaluation. Plan: Review psychotropic medication treatment informed consent and recommendations. After reviewing risk and benefits, patient agrees to continue medications with the following changes. Medication changes include increasing Klonopin HS dose to 1mg for insomnia related to constantino and Depakote ER 1,500 mg po QD. Depakote level ordered for 11/02/17. No other medication changes at this time as more time is needed to determine ongoing tolerability and efficacy. Plan is to continue to observe patient for response and side effects from medications, and ongoing monitoring and evaluation. Goal is for patient to get at least 6 hours of uninterrupted and restful sleep for the next several nights. Based on patients history, patients symptoms improve with several nights of adequate sleep, and patient is typically has more insight into her condition and is more motivated for treatment once her symptoms have improved. Next steps are for patient to meet with child care giver to plan a safe discharge plan and establish outpatient services for ongoing treatment. Patient may require short-term certification in unwilling to sign-in for voluntary hospitalization. Consider discharge end of next week if patient is in stable condition, safe, and has a safe discharge plan. PSYCHOTROPIC MEDICATION TREATMENT INFORMED CONSENT and RECOMMENDATIONS: Review nature of condition, diagnosis, and prognosis. Review nature and purpose of psychotropic medication treatment. Review type of psychotropic medications being ordered. Review risk and benefits of psychotropic medication treatment. Review probable length of time patient will need to take medications. Review risk and benefits of not undergoing psychotropic medication treatment. Review alternative treatments to psychotropic medications. Review psychotropic medications contraindications, drug-drug interactions, side effects, and importance of reporting any side effects to a psychiatric provider or nurse during inpatient hospitalization, and upon discharge to patients psychiatric outpatient provider, primary care provider, or other health progressive care nurse. Review importance of asking a nurse, psychiatric provider, or primary care provider any questions or problems concerning the psychotropic medications. Verify patient understands the information that has been provided, and understands, accepts, and agrees to psychotropic medications. Review patients safety plan and importance of patient to report to staff while hospitalized if patient is ever a danger to self/others, or unable to care for self, and upon discharge, the importance for patient to contact [facility] or [facility], or go to the nearest emergency room, if patient is ever a danger to self/others, or unable to care for self. Recommend that upon discharge patient establish medication management treatment with a psychiatric provider, establishes routine therapy appointments, and follow-up with primary care provider. Verify patient understands and agrees to these recommendations. 10/28/17 13:50 Subjective: Following up with patient for evaluation of mood and safety. Patient reports, I am doing finenot sure why everyone is so upset about me wanting to buy that big red truckI can do whatever I want. Patient reports she slept about 4.5 hours last night, states she had a hard time staying asleep due to having a lot on her mind. Patient reports she is taking current medications as prescribed, is tolerating medications with side effects, and reports poor response from Klonopin for sleep. Patient reports he appetite is good, denies symptoms of constantino, and denies any other psychiatric symptoms, stating she is going just fine. Patient denies SI/HI. Patient reports she is attending groups. Patient agrees to Depakote ER 1,500 mg po QD to start now. Objective: Vital Signs Temp Pulse Resp BP Pulse Ox 36.4 C 85 16 109/67 95 10/28/17 03:37 10/28/17 03:37 10/28/17 03:37 10/28/17 03:37 10/28/17 03:37 Laboratory Results 10/27/17 22:35 10/27/17 22:35 Consulted with treatment team staff for update on patients progress in treatment. Nurses report patient is irritable, labile, tearful at times, and argumentative with staff. Staff reports patient slept 3.5 hours, is taking meds as prescribed, is tolerating meds with no report of SEs, is attending groups, and denies SI/HI, and expresses no psychiatric symptoms. Psychiatric signs noted: decreased need for sleep, labile, irritable, angry, tearful, and grandiose. No psychiatric complaints are expressed. Patient continues to exhibit symptoms of hypomania. Symptoms continue the same in frequency and intensity, and no improvement is noted. She is currently tolerating medications with no reports of side effects, and with poor response symptoms. The patient presents casually dressed and with good hygiene, and looks stated age. Patient is sitting, posture is upright, and position is relaxed. Patient appears awake, alert, and responds appropriately and reasonably during interview. Patient is engaged, is argumentative with this interviewer, and emotional facial expression is sad and tearful. Patient is uncooperative, defensive, makes comfortable eye contact, and movements are voluntary, deliberate, coordinated, and smooth and even with no inappropriate movements. Patient makes laryngeal sounds effortlessly and shares conversation appropriately; pace of conversation is appropriate, and stream of talking is pressured; articulation is clear and understandable; word choice is effortless and appropriate for education level; completes sentences, rate and volume are inappropriate for interview and setting. Patient reports mood as euthymic. Patients affect is stable with full variable range, congruent with mood, and appropriate to speech and circumstances. Patient has non-linear and illogical thinking, with no loose associations, currently tangential thought, no thought blocking, no concrete thinking, or no other signs of formal thought disorder. Patient denies suicidal and homicidal ideation, and denies hallucinations and delusions. Patient appears to be a reliable historian with sound judgement and good insight into current condition. Patient has no apparent dysfunction in recent or remote memory noted, and no evidence of gross cognitive dysfunction noted at any point during the interview. - Time Spent With Patient Time Spent With Patient: 30 minutes, met with patient individually. - Pending Discharge Pending Discharge Within 24 Hours: No Pending Discharge Within 48 Hours: No ICD10 Worksheet Patient Problems: Problems Problem Status Onset Bipolar 1 disorder Acute
[2017-10-28] MEDS: MAG HYDROX/AL HYDROX/SIMETH 30 ML UDCUP PO PRN (14:07)
--- NOTE | 2017-10-28 16:02 | SOAPPROG ---
SOAP Progress Note Assessment/Plan: Assessment: Unilateral lower leg swelling with DVT ruled out, fractures ruled out, and no signs or symptoms of cellulitis. * D-dimer is elevated. With previous normal lower extremity ultrasound, will seek abnormality in the pelvis with a CT scan of the pelvis with contrast. If that is negative we will repeat lower extremity ultrasound. Emollient for dry skin. 10/28/17 16:01 Subjective: Labs reviewed. D-dimer at 0.7, with upper limit for rule out of D-dimer being 0.5. Objective: Vital Signs Temp Pulse Resp BP Pulse Ox 36.4 C 85 16 109/67 95 10/28/17 03:37 10/28/17 03:37 10/28/17 03:37 10/28/17 03:37 10/28/17 03:37 Laboratory Results 10/27/17 22:35 10/27/17 22:35 ICD10 Worksheet Patient Problems: Problems Problem Status Onset Bipolar 1 disorder Acute
[2017-10-28] MEDS ORDERED: IOPAMIDOL (ISOVUE-300) 100 ML BTL ONE (16:32)
[2017-10-28] MEDS: lamoTRIgine 25 MG TAB PO SCH (19:29)
[2017-10-28] MEDS ORDERED: clonazePAM 0.5 MG TAB PO PRN (20:13)
[2017-10-29] MEDS: ACETAMINOPHEN 325 MG TAB PO PRN ×2 (02:40→14:48)
[2017-10-29] MEDS: clonazePAM 0.5 MG TAB PO PRN ×2 (02:40→16:28)
[2017-10-29] MEDS: AQUAPHOR OINTMENT 3.5 OZ JAR TP SCH ×2 (03:10→20:17)
[2017-10-29] MEDS: NICOTINE 14 MG/24 HR PATCH TD SCH (08:30)
[2017-10-29] MEDS ORDERED: DIVALPROEX ER 250 MG TAB PO SCH (09:00)
[2017-10-29] MEDS: MAG HYDROX/AL HYDROX/SIMETH 30 ML UDCUP PO PRN ×2 (10:31→16:28)
--- NOTE | 2017-10-29 14:11 | SOAPPROG ---
SOAP Progress Note Assessment/Plan: Assessment: Per Macario Ramirez's note: Bipolar I disorder. Currently hypomania (decreased need for sleep, irritable, tangential). No improvement noted. (see subjective/objective note). Patient could benefit from continued inpatient hospitalization for crisis stabilization , safety, and medication evaluation. Plan: 10/29/17 13:59 1. Based on Macario Ramirez's plan for adjusting medications, will switch Depakote ER to HS dosing starting on 10/30/17. 2. Also start tapering down on Klonopin dose to 0.5mg BID PRN and continue 1mg at HS PRN. 3. Change Lamictal 25mg to every other day x 2 weeks since patient is also taking Depakote ER. Patient can then start taking 25mg daily for another 2 weeks. 4. VPA level scheduled for 11/02/17. 5. Patient has very ambivalent feelings about taking Depakote similar to the thoughts she expressed during his last admission. If anything, patient may minimize her reluctance to take Depakote, since she immediately stopped taking it upon discharge on 10/17/17, which likely prompted the recurrence of hypomania which led to her readmission. Given this pattern, MD suggests finding an alternative mood stabilizer. Even though Depakote may be more effective than alternative mood stabilizers, if patient doesn't take VPA, she gets no benefit. Patient's outpatient prescriber, Dr. Garcia, has encouraged patient to take Depakote and recommended the inpatient team at [facility] continue to prescribe it for patient since Dr. Garcia claims this medication stabilizes patient more quickly than other options. 6. Patient became very labile and argumentative with MD and staff b/c she didn' t get approved for AG privileges this weekend. MD explained that patient is not stable enough to warrant leaving unit even for brief periods of time. Staff reported that patient gave her boyfriend some of her personal belongings when he came to visit. Staff report that patient may be planning to elope from hospital. Patient is now on elopement precautions. MD encouraged patient to work on treatment to decrease her mood lability and improve her sxs, and then think about going off grounds. She reluctantly agreed. 7. When patient was told she would not receive AG privileges, she immediately insisted on leaving even though she had told Macario Ramirez on Tuesday that she wanted to stay in hospital to complete treatment and get more stable on meds before leaving again. explained to patient that the reason Dr. Garcia wanted her readmitted is b/c she thought patient left hospital "too early" last time and didn't stay on her meds. Patient dismissed Dr. Garcia's and MD's concerns. Will place patient on [facility] since she is not wiling to stay voluntarily. Subjective: Met with patient, reviewed chart and d/w staff. Patient has very ambivalent feelings about taking Depakote similar to the thoughts she expressed during his last admission. If anything, patient may minimize her reluctance to take Depakote, since she immediately stopped taking it upon discharge on 10/17/17, which likely prompted the recurrence of hypomania which led to her readmission. Given this pattern, MD suggests finding an alternative mood stabilizer. Even though Depakote may be more effective than alternative mood stabilizers, if patient doesn't take VPA, she gets no benefit. Patient's outpatient prescriber, Dr. Garcia, has encouraged patient to take Depakote and recommended the inpatient team at [facility] continue to prescribe it for patient since Dr. Garcia claims this medication stabilizes patient more quickly than other options. Patient became very labile and argumentative with MD and staff b/c she didn't get approved for AG privileges this weekend. MD explained that patient is not stable enough to warrant leaving unit even for brief periods of time. Staff reported that patient gave her boyfriend some of her personal belongings when he came to visit. Staff report that patient may be planning to elope from hospital. Patient is now on elopement precautions. MD encouraged patient to work on treatment to decrease her mood lability and improve her sxs, and then think about going off grounds. She reluctantly agreed. When patient was told she would not receive AG privileges, she immediately insisted on leaving even though she had told Macario Ramirez on Tuesday that she wanted to stay in hospital to complete treatment and get more stable on meds before leaving again. explained to patient that the reason Dr. Garcia wanted her readmitted is b/c she thought patient left hospital "too early" last time and didn't stay on her meds. Patient dismissed Dr. Garcia's and MD's concerns. Will place patient on [facility] since she is not wiling to stay voluntarily. Patient denies any SI/HI. Objective: Vital Signs Temp Pulse Resp BP Pulse Ox 36.9 C 104 H 16 114/67 98 10/29/17 02:22 10/29/17 02:22 10/29/17 02:22 10/29/17 02:22 10/29/17 02:22 Laboratory Results 10/27/17 22:35 10/27/17 22:35 MSE: Affect: Labile, pleasant, calm, emotional, angry Mood: "OK" but also angry and irritable TP: Disorganized, irrational TC: Denies any SI/HI, no evidence of AH/VH Insight/Judgment: Impaired - Time Spent With Patient Time Spent With Patient: 15" - Pending Discharge Pending Discharge Within 24 Hours: No Pending Discharge Within 48 Hours: No ICD10 Worksheet Patient Problems: Problems Problem Status Onset Bipolar 1 disorder Acute
[2017-10-30] MEDS: clonazePAM 0.5 MG TAB PO PRN (06:24)
[2017-10-30] MEDS: ACETAMINOPHEN 325 MG TAB PO PRN ×2 (08:35→14:49)
[2017-10-30] MEDS: NICOTINE 14 MG/24 HR PATCH TD SCH (08:54)
[2017-10-30] MEDS: MAG HYDROX/AL HYDROX/SIMETH 30 ML UDCUP PO PRN ×2 (10:55→18:51)
[2017-10-30] MEDS: AQUAPHOR OINTMENT 3.5 OZ JAR TP SCH ×2 (12:01→20:58)
--- NOTE | 2017-10-30 15:22 | SOAPPROG ---
SOAP Progress Note Assessment/Plan: Assessment: Per Macario Ramirez's note: Bipolar I disorder. Currently hypomania (decreased need for sleep, irritable, tangential). No improvement noted. (see subjective/objective note). Patient could benefit from continued inpatient hospitalization for crisis stabilization , safety, and medication evaluation. Plan: 10/29/17 13:59 1. Based on Macario Ramirez's plan for adjusting medications, will switch Depakote ER to HS dosing starting on 10/30/17. 2. Also start tapering down on Klonopin dose to 0.5mg BID PRN and continue 1mg at HS PRN. 3. Change Lamictal 25mg to every other day x 2 weeks since patient is also taking Depakote ER. Patient can then start taking 25mg daily for another 2 weeks. 4. VPA level scheduled for 11/02/17. 5. Patient has very ambivalent feelings about taking Depakote similar to the thoughts she expressed during his last admission. If anything, patient may minimize her reluctance to take Depakote, since she immediately stopped taking it upon discharge on 10/17/17, which likely prompted the recurrence of hypomania which led to her readmission. Given this pattern, MD suggests finding an alternative mood stabilizer. Even though Depakote may be more effective than alternative mood stabilizers, if patient doesn't take VPA, she gets no benefit. Patient's outpatient prescriber, Dr. Garcia, has encouraged patient to take Depakote and recommended the inpatient team at [facility] continue to prescribe it for patient since Dr. Garcia claims this medication stabilizes patient more quickly than other options. 6. Patient became very labile and argumentative with MD and staff b/c she didn' t get approved for AG privileges this weekend. MD explained that patient is not stable enough to warrant leaving unit even for brief periods of time. Staff reported that patient gave her boyfriend some of her personal belongings when he came to visit. Staff report that patient may be planning to elope from hospital. Patient is now on elopement precautions. MD encouraged patient to work on treatment to decrease her mood lability and improve her sxs, and then think about going off grounds. She reluctantly agreed. 7. When patient was told she would not receive AG privileges, she immediately insisted on leaving even though she had told Macario Ramirez on Tuesday that she wanted to stay in hospital to complete treatment and get more stable on meds before leaving again. explained to patient that the reason Dr. Garcia wanted her readmitted is b/c she thought patient left hospital "too early" last time and didn't stay on her meds. Patient dismissed Dr. Garcia's and MD's concerns. Will place patient on [facility] since she is not wiling to stay voluntarily. 10/30/17 15:12 1. Lengthy conversation between PAMELLA MYLES and patient and her boyfriend, Augustine. Patient was calmer and more reasonable today. She did not call MD names or argue. However, she was very emotional and cried abruptly for no reason several times during interview. 2. Patient says she wants to "be honest" with her providers and let them know she has no intention of taking Depakote b/c she doesn't like the way it makes her feel. She says it "robs me of my soul" along with concerns about other SE' s. MD strongly encouraged patient to tell Macario Ramirez about her concerns and her plan not to take medicine at home. She said she would. 3. Patient also said she doesn't want to see Dr. Garcia anymore b/c she insists on prescribing Depakote. Patient says Dr. Garcia wants her to take the medicine "temporarily" but it's always for "longer" than patient wants to take it. Again MD encouraged patient to be upfront with her providers about what she is and isn 't willing to take. That way, her providers can give her appropriate recommendations about medications that can help her. She agrees to start doing this, but says she still wants a termination appointment with Dr. Garcia and wants a referral for "a new psychiatrist." 4. Patient says she "likes" the Abilify Maintenna, Lamictal and Klonopin. explained to patient that Abilify is the only one of those meds that is proven effective for tx of constantino. MD explains the difference between mood stabilizers that are used to treat bipolar depression and those that treat bipolar manic type. MD answered patient's and her boyfriend's questions. They both thanked MD and reported feeling "reassured." MD did not give patient recommendation about which particular mood stabilizer to replace Depakote, but encouraged patient to d/w her provider, Macario, tomorrow. She agreed with this plan. 5. Patient slept 9 hrs last night, she does not have racing thoughts or pressured speech, and there is no evidence of grandiose delusions or elated/ elevated mood. 6. Currently on [facility]. Subjective: Met with patient, reviewed chart and d/w staff. MD and CC met with patient and her boyfriend, Augustine. Patient admits she doesn't want to take Depakote and doesn' t agree with Dr. Garcia that this medication is necessary to keep her stable. MD and CC answered patient's and her boyfriend's questions about meds and follow up care. CC told patient that she will have termination appt with Dr. Garcia at her request, and that P will refer her to new prescriber. MD discussed possible mood stabilizers to replace Depakote, but explained that Zeba and Depakote are the most effective for treating constantino in adults. Patient said she "likes" Abilify and Lamictal. MD said he has not spoken to Dr. Garcia and does not know what other meds patient has taken in past or how helpful they have been. MD recommended following up with Macario Ramirez and Dr. Garcia on Tuesday to discuss alternatives to Depakote, based on her response to meds in the past. Patient agreed with this plan. Objective: Vital Signs Temp Pulse Resp BP Pulse Ox 36.4 C 96 16 112/63 96 10/30/17 06:00 10/30/17 06:00 10/30/17 06:00 10/30/17 06:00 10/30/17 06:00 Laboratory Results 10/27/17 22:35 10/27/17 22:35 MSE: Affect: Labile, tearful, emotional, less angry and argumentative Mood: "Good" TP: Tangential, irrational at times TC: Denies any SI/HI, no AH/VH, no grandiose delusions Insight/Judgment: Poor, improved from yesterday - Time Spent With Patient Time Spent With Patient: 25" - Pending Discharge Pending Discharge Within 24 Hours: No Pending Discharge Within 48 Hours: No ICD10 Worksheet Patient Problems: Problems Problem Status Onset Bipolar 1 disorder Acute
[2017-10-30] MEDS: DIVALPROEX ER 250 MG TAB PO SCH (20:57)
[2017-10-31] MEDS: NAPROXEN SODIUM 220 MG TAB PO PRN (07:24)
[2017-10-31] MEDS: lamoTRIgine 25 MG TAB PO SCH (08:54)
[2017-10-31] MEDS: NICOTINE 14 MG/24 HR PATCH TD SCH (08:55)
[2017-10-31] MEDS: AQUAPHOR OINTMENT 3.5 OZ JAR TP SCH ×2 (08:55→21:19)
--- NOTE | 2017-10-31 12:33 | SOAPPROG ---
SOAP Progress Note Assessment/Plan: Assessment: Bipolar I disorder. Improving. Continues to show some S/S hypomania. Patient could benefit from continued inpatient hospitalization for crisis stabilization , safety, and medication evaluation. Plan: Review psychotropic medication treatment informed consent and recommendations. After reviewing risk and benefits, patient agrees to continue medications with the following changes. No medication changes at this time as more time is needed to determine ongoing tolerability and efficacy. Depakote level ordered for 11/02/17. Plan is to continue to observe patient for response and side effects from medications, and ongoing monitoring and evaluation. Next steps are for patient to meet with healthcare or medical to plan a safe discharge plan and establish outpatient services for ongoing treatment. Patient may require short- term certification in unwilling to sign-in for voluntary hospitalization. Consider discharge Tuesday if patient is in stable condition, safe, and has a safe discharge plan. PSYCHOTROPIC MEDICATION TREATMENT INFORMED CONSENT and RECOMMENDATIONS: Review nature of condition, diagnosis, and prognosis. Review nature and purpose of psychotropic medication treatment. Review type of psychotropic medications being ordered. Review risk and benefits of psychotropic medication treatment. Review probable length of time patient will need to take medications. Review risk and benefits of not undergoing psychotropic medication treatment. Review alternative treatments to psychotropic medications. Review psychotropic medications contraindications, drug-drug interactions, side effects, and importance of reporting any side effects to a psychiatric provider or nurse during inpatient hospitalization, and upon discharge to patients psychiatric outpatient provider, primary care provider, or other health managed care manager. Review importance of asking a nurse, psychiatric provider, or primary care provider any questions or problems concerning the psychotropic medications. Verify patient understands the information that has been provided, and understands, accepts, and agrees to psychotropic medications. Review patients safety plan and importance of patient to report to staff while hospitalized if patient is ever a danger to self/others, or unable to care for self, and upon discharge, the importance for patient to contact [facility] or [facility], or go to the nearest emergency room, if patient is ever a danger to self/others, or unable to care for self. Recommend that upon discharge patient establish medication management treatment with a psychiatric provider, establishes routine therapy appointments, and follow-up with primary care provider. Verify patient understands and agrees to these recommendations. 10/31/17 12:34 Subjective: Following up with patient for evaluation of mood and safety. Patient reports, I am taking the Depakote, but want to be on a lower dose at some point. Patient agrees to continue Depakote with plan to potentially lower dose once stable. Patient reports she slept about 8 hours last night, and reports good response from Depakote for sleep and reports her mood has improved. Patient reports she is taking current medications as prescribed, is tolerating medications with side effects, and reports good response from Klonopin for sleep. Patient reports appetite is good, denies symptoms of constantino, and denies any other psychiatric symptoms, stating she is going just fine. Patient denies SI/HI. Patient reports she is attending groups. Patient agrees to continue current medications. Patient requests to go outside for a walk, and responds well when this interviewer states this ordered will be placed today and outside ground privileges is based on staff availability. Objective: Vital Signs Temp Pulse Resp BP Pulse Ox 36.9 C 88 16 108/60 94 10/31/17 06:00 10/31/17 06:00 10/31/17 06:00 10/31/17 06:00 10/31/17 06:00 Laboratory Results 10/27/17 22:35 10/27/17 22:35 Consulted with treatment team staff for update on patients progress in treatment. Nurses report patient is less irritable, less labile, and argumentative no longer argumentative with staff. Staff reports patient slept 9 hours, is taking meds as prescribed, is tolerating meds with no report of SEs , is attending groups, and denies SI/HI, and expresses no psychiatric symptoms. Psychiatric signs noted: labile, intrusive. No psychiatric complaints are expressed. Patient is improving with sleep and loading dose of Depakote. She is currently tolerating medications with no reports of side effects, and with poor response symptoms. The patient presents casually dressed and with good hygiene, and looks stated age. Patient is sitting, posture is upright, and position is relaxed. Patient appears awake, alert, and responds appropriately and reasonably during interview. Patient is engaged, is argumentative with this interviewer, and emotional facial expression is sad and tearful. Patient is uncooperative, defensive, makes comfortable eye contact, and movements are voluntary, deliberate, coordinated, and smooth and even with no inappropriate movements. Patient makes laryngeal sounds effortlessly and shares conversation appropriately; pace of conversation is appropriate, and stream of talking is pressured; articulation is clear and understandable; word choice is effortless and appropriate for education level; completes sentences, rate and volume are inappropriate for interview and setting. Patient reports mood as euthymic. Patients affect is stable with full variable range, congruent with mood, and appropriate to speech and circumstances. Patient has non-linear and illogical thinking, with no loose associations, currently tangential thought, no thought blocking, no concrete thinking, or no other signs of formal thought disorder. Patient denies suicidal and homicidal ideation, and denies hallucinations and delusions. Patient appears to be a reliable historian with sound judgement and good insight into current condition. Patient has no apparent dysfunction in recent or remote memory noted, and no evidence of gross cognitive dysfunction noted at any point during the interview. - Time Spent With Patient Time Spent With Patient: 30 minutes, met with patient individually. - Pending Discharge Pending Discharge Within 24 Hours: No Pending Discharge Within 48 Hours: No ICD10 Worksheet Patient Problems: Problems Problem Status Onset Bipolar 1 disorder Acute
[2017-10-31] MEDS: clonazePAM 0.5 MG TAB PO PRN (12:39)
[2017-10-31] MEDS: DIVALPROEX ER 250 MG TAB PO SCH (21:18)
--- NOTE | 2017-11-01 22:30 | ASMTBHDC ---
Notes Note: Notes: Discharge Planning CC reached out to [facility] liaison requesting follow up out-paitent appointments early next week. Joellen noted, that she need to speak to her [place] team first and is working on getting the follow up appointments needed for this client, etc. Date Signed: 11/01/2017 03:07 PM Electronically Signed By:Bobby Hughes
[2017-11-02] MEDS: NAPROXEN SODIUM 220 MG TAB PO PRN ×2 (07:57→19:20)
[2017-11-02] MEDS: lamoTRIgine 25 MG TAB PO SCH (07:57)
[2017-11-02] MEDS: AQUAPHOR OINTMENT 3.5 OZ JAR TP SCH ×4 (08:02→20:59)
[2017-11-02] MEDS: DIVALPROEX ER 250 MG TAB PO SCH (08:02)
[2017-11-02] MEDS: NICOTINE 14 MG/24 HR PATCH TD SCH ×2 (08:03→08:46)
[2017-11-02] MEDS: clonazePAM 0.5 MG TAB PO PRN (10:56)
[2017-11-02] MEDS ORDERED: DIVALPROEX ER 250 MG TAB PO SCH ×2 (15:05→15:31)
[2017-11-02] MEDS ORDERED: clonazePAM 0.5 MG TAB PO PRN (15:05)
--- NOTE | 2017-11-02 15:36 | SOAPPROG ---
SOAP Progress Note Assessment/Plan: LATE ENTRY FOR 11/01/17 DUE TO MEDITECH DOWNTIME Assessment: Bipolar I disorder. Improving. Patient could benefit from continued inpatient hospitalization for crisis stabilization, safety, and medication evaluation. Plan: Review psychotropic medication treatment informed consent and recommendations. After reviewing risk and benefits, patient agrees to continue medications with the following changes. Decrease Klonopin PRN to 0.25 mg BID and reduce Klonopin HS to 0.5 mg. No other medication changes at this time as more time is needed to determine ongoing tolerability and efficacy. Depakote level ordered for 11/02/17 0600. Plan is to continue to observe patient for response and side effects from medications, and ongoing monitoring and evaluation. Next steps are for patient to meet with care specialist to plan a safe discharge plan and establish outpatient services for ongoing treatment. Patient may require short-term certification in unwilling to sign-in for voluntary hospitalization. Consider discharge Tuesday if patient is in stable condition, safe, and has a safe discharge plan. PSYCHOTROPIC MEDICATION TREATMENT INFORMED CONSENT and RECOMMENDATIONS: Review nature of condition, diagnosis, and prognosis. Review nature and purpose of psychotropic medication treatment. Review type of psychotropic medications being ordered. Review risk and benefits of psychotropic medication treatment. Review probable length of time patient will need to take medications. Review risk and benefits of not undergoing psychotropic medication treatment. Review alternative treatments to psychotropic medications. Review psychotropic medications contraindications, drug-drug interactions, side effects, and importance of reporting any side effects to a psychiatric provider or nurse during inpatient hospitalization, and upon discharge to patients psychiatric outpatient provider, primary care provider, or other health md do resident urgent care. Review importance of asking a nurse, psychiatric provider, or primary care provider any questions or problems concerning the psychotropic medications. Verify patient understands the information that has been provided, and understands, accepts, and agrees to psychotropic medications. Review patients safety plan and importance of patient to report to staff while hospitalized if patient is ever a danger to self/others, or unable to care for self, and upon discharge, the importance for patient to contact [facility] or [facility], or go to the nearest emergency room, if patient is ever a danger to self/others, or unable to care for self. Recommend that upon discharge patient establish medication management treatment with a psychiatric provider, establishes routine therapy appointments, and follow-up with primary care provider. Verify patient understands and agrees to these recommendations. 11/02/17 15:35 Subjective: Following up with patient for evaluation of mood and safety. Patient reports, I am doing good. Patient agrees to continue Depakote with plan to potentially lower dose once stable. Patient reports she slept about 8 hours last night, and reports good response from Depakote for sleep and reports her mood has improved. Patient reports she is taking current medications as prescribed, is tolerating medications with side effects, and reports good response from Klonopin for sleep. Patient reports appetite is good, denies symptoms of constantino , and denies any other psychiatric symptoms, stating she is going just fine. Patient denies SI/HI. Patient reports she is attending groups. Patient agrees to continue current medications. Patient requests to go outside for a walk, and responds well when this interviewer states this ordered will be placed today and outside ground privileges is based on staff availability. Patient reports she plans to go to work at [employer] when she discharges. Objective: Vital Signs Temp Pulse Resp BP Pulse Ox 36.9 C 103 H 16 107/60 96 10/31/17 06:00 11/01/17 06:00 11/01/17 06:00 11/01/17 06:00 11/01/17 06:00 Laboratory Results 10/27/17 22:35 10/27/17 22:35 Consulted with treatment team staff for update on patients progress in treatment. Nurses report patient is less irritable, less labile, and argumentative no longer argumentative with staff. Staff reports patient slept 7 hours, is taking meds as prescribed, is tolerating meds with no report of SEs , is attending groups, and denies SI/HI, and expresses no psychiatric symptoms. Psychiatric signs noted: labile, intrusive, tangential. No psychiatric complaints are expressed. Patient is improving with sleep and Depakote. She is currently tolerating medications with no reports of side effects, and with fair response symptoms. Phone conference with [facility] psychiatrist and therapist: Patient agrees to conference call with her OP providers from [facility] and this interviewer to determine patients status and whether she is currently at baselinemania has resolved. OP providers impression is that patient is not currently at baseline and is currently unstable. OP providers and patient agree to follow-up conference call on morning at 0800. The patient presents casually dressed and with good hygiene, and looks stated age. Patient is sitting, posture is upright, and position is relaxed. Patient appears awake, alert, and responds appropriately and reasonably during interview. Patient is engaged, is argumentative with this interviewer, and emotional facial expression is sad and tearful. Patient is uncooperative, defensive, makes comfortable eye contact, and movements are voluntary, deliberate, coordinated, and smooth and even with no inappropriate movements. Patient makes laryngeal sounds effortlessly and shares conversation appropriately; pace of conversation is appropriate, and stream of talking is pressured; articulation is clear and understandable; word choice is effortless and appropriate for education level; completes sentences, rate and volume are inappropriate for interview and setting. Patient reports mood as euthymic. Patients affect is stable with full variable range, congruent with mood, and appropriate to speech and circumstances. Patient has linear and logical thinking, with no loose associations, currently tangential thought, no thought blocking, no concrete thinking, or no other signs of formal thought disorder. Patient denies suicidal and homicidal ideation, and denies hallucinations and delusions. Patient appears to be a reliable historian with sound judgement and good insight into current condition. Patient has no apparent dysfunction in recent or remote memory noted, and no evidence of gross cognitive dysfunction noted at any point during the interview. - Time Spent With Patient Time Spent With Patient: Met with patient individually and conference call with pt OP providers & pt present, total 30 minutes. - Pending Discharge Pending Discharge Within 24 Hours: No Pending Discharge Within 48 Hours: No ICD10 Worksheet Patient Problems: Problems Problem Status Onset Bipolar 1 disorder Acute
--- NOTE | 2017-11-02 15:40 | SOAPPROG ---
SOAP Progress Note Assessment/Plan: LATE ENTRY FOR 11/01/17 DUE TO MEDITECH DOWNTIME Assessment: Bipolar I disorder. Improving. Genna resolving, depression onset. Patient could benefit from continued inpatient hospitalization for crisis stabilization , safety, and medication evaluation. Plan: Review psychotropic medication treatment informed consent and recommendations. After reviewing risk and benefits, patient agrees to continue medications with the following changes. Decrease Klonopin PRN to 0.25 mg BID and continue Klonopin 1 mg po QHS for insomnia related to unstable mood. Increase Depakote to 1,750 mg po QHS for acute stabilization with plan to taper and begin maintenance regimen after discussing options with patient and OP [facility] provider. No other medication changes at this time as more time is needed to determine ongoing tolerability and efficacy. Depakote level ordered for 11/02/17 0600: 84.9. Plan is to continue to observe patient for response and side effects from medications, and ongoing monitoring and evaluation. Next steps are for patient to meet with healthcare recruiter to plan a safe discharge plan and establish outpatient services for ongoing treatment. Conference call set-up with P providers tomorrow at 0800 to discuss treatment options for bipolar maintenance. Consider discharge Tuesday if patient is in stable condition, safe , and has a safe discharge plan. PSYCHOTROPIC MEDICATION TREATMENT INFORMED CONSENT and RECOMMENDATIONS: Review nature of condition, diagnosis, and prognosis. Review nature and purpose of psychotropic medication treatment. Review type of psychotropic medications being ordered. Review risk and benefits of psychotropic medication treatment. Review probable length of time patient will need to take medications. Review risk and benefits of not undergoing psychotropic medication treatment. Review alternative treatments to psychotropic medications. Review psychotropic medications contraindications, drug-drug interactions, side effects, and importance of reporting any side effects to a psychiatric provider or nurse during inpatient hospitalization, and upon discharge to patients psychiatric outpatient provider, primary care provider, or other health home health care provider. Review importance of asking a nurse, psychiatric provider, or primary care provider any questions or problems concerning the psychotropic medications. Verify patient understands the information that has been provided, and understands, accepts, and agrees to psychotropic medications. Review patients safety plan and importance of patient to report to staff while hospitalized if patient is ever a danger to self/others, or unable to care for self, and upon discharge, the importance for patient to contact [facility] or [facility], or go to the nearest emergency room, if patient is ever a danger to self/others, or unable to care for self. Recommend that upon discharge patient establish medication management treatment with a psychiatric provider, establishes routine therapy appointments, and follow-up with primary care provider. Verify patient understands and agrees to these recommendations. 11/02/17 15:37 Subjective: Following up with patient for evaluation of mood and safety. Patient reports, Feel like have improved since been here...more clear headed. Patient agrees to continue Depakote. Patient reports she slept about 8 hours last night, and reports good response from Depakote for sleep and reports her mood has improved. Patient reports she is taking current medications as prescribed, is tolerating medications with side effects, and reports good response from Klonopin for sleep. Patient reports appetite is good, denies symptoms of genna , and denies any other psychiatric symptoms, stating she is going just fine. Patient denies SI/HI. Patient reports she is attending groups. Patient agrees to continue current medications. Patient agrees to consider following: (1) adding oral Abilify with Abilify Maintena 400 mg IM monthly, or (2) change Abilify Maintena to every 3 weeks, or (3) add Prozac. Patient agrees to conference call with [facility] OP providers, Dr. Garcia and Sophia Abbott, tomorrow morning at 0800. At this time will discuss treatment options as patient requests options in order to discontinue Depakote after stabilized. Objective: Vital Signs Temp Pulse Resp BP Pulse Ox 36.9 C 103 H 16 107/60 96 10/31/17 06:00 11/01/17 06:00 11/01/17 06:00 11/01/17 06:00 11/01/17 06:00 Laboratory Results 10/27/17 22:35 10/27/17 22:35 Consulted with treatment team staff for update on patients progress in treatment. Nurses report patient is less irritable, less labile, and argumentative no longer argumentative with staff. Staff reports patient slept 7 hours, is taking meds as prescribed, is tolerating meds with no report of SEs , is attending groups, and denies SI/HI, and expresses no psychiatric symptoms. Psychiatric signs noted: improvement from yesterdayless labile, less intrusive, less tangential. Depression symptoms notedsad affect, psychomotor retardation; fatigue. No psychiatric complaints are expressed. Patient is improving with sleep and Depakote. She is currently tolerating medications with no reports of side effects, and with fair response symptoms. The patient presents casually dressed and with good hygiene, and looks stated age. Patient is sitting, posture is upright, and position is relaxed. Patient appears awake, alert, and responds appropriately and reasonably during interview. Patient is engaged, is argumentative with this interviewer, and emotional facial expression is sad and tearful. Patient is uncooperative, defensive, makes comfortable eye contact, and movements are voluntary, deliberate, coordinated, and smooth and even with no inappropriate movements. Patient makes laryngeal sounds effortlessly and shares conversation appropriately; pace of conversation is appropriate, and stream of talking is pressured; articulation is clear and understandable; word choice is effortless and appropriate for education level; completes sentences, rate and volume are inappropriate for interview and setting. Patient reports mood as euthymic. Patients affect is flat/depressed with constricted range, incongruent with mood , and inappropriate to speech and circumstances. Patient has linear and logical thinking, with no loose associations, currently tangential thought, no thought blocking, no concrete thinking, or no other signs of formal thought disorder. Patient denies suicidal and homicidal ideation, and denies hallucinations and delusions. Patient appears to be a reliable historian with sound judgement and good insight into current condition. Patient has no apparent dysfunction in recent or remote memory noted, and no evidence of gross cognitive dysfunction noted at any point during the interview. - Time Spent With Patient Time Spent With Patient: Met with patient individually, 30 minutes. - Pending Discharge Pending Discharge Within 24 Hours: No Pending Discharge Within 48 Hours: No ICD10 Worksheet Patient Problems: Problems Problem Status Onset Bipolar 1 disorder Acute
[2017-11-03] MEDS: NAPROXEN SODIUM 220 MG TAB PO PRN ×2 (07:01→17:10)
[2017-11-03] MEDS: lamoTRIgine 25 MG TAB PO SCH (08:13)
[2017-11-03] MEDS: clonazePAM 0.5 MG TAB PO PRN (08:39)
--- NOTE | 2017-11-03 08:47 | SOAPPROG ---
SOAP Progress Note Assessment/Plan: Assessment: Bipolar I disorder. Improving. Genna resolving, depression onset (see subjective/objective). Patient could benefit from continued inpatient hospitalization for crisis stabilization, safety, and medication evaluation. Plan: Review psychotropic medication treatment informed consent and recommendations. After reviewing risk and benefits, patient agrees to continue medications with the following changes. Decrease Klonopin HS to 0.25 PRN. No other medication changes at this time as more time is needed to determine ongoing tolerability and efficacy. Depakote level ordered for 11/06/17 at 0600. Plan is to continue to observe patient for response and side effects from medications, and ongoing monitoring and evaluation. Next steps are for patient to meet with career manager to plan a safe discharge plan and establish outpatient services for ongoing treatment. Conference call to be set-up with [facility] providers for Tuesday prior to discharge. Consider discharge Tuesday if patient is in stable condition , safe, and has a safe discharge plan. PSYCHOTROPIC MEDICATION TREATMENT INFORMED CONSENT and RECOMMENDATIONS: Review nature of condition, diagnosis, and prognosis. Review nature and purpose of psychotropic medication treatment. Review type of psychotropic medications being ordered. Review risk and benefits of psychotropic medication treatment. Review probable length of time patient will need to take medications. Review risk and benefits of not undergoing psychotropic medication treatment. Review alternative treatments to psychotropic medications. Review psychotropic medications contraindications, drug-drug interactions, side effects, and importance of reporting any side effects to a psychiatric provider or nurse during inpatient hospitalization, and upon discharge to patients psychiatric outpatient provider, primary care provider, or other health personal care home administrator. Review importance of asking a nurse, psychiatric provider, or primary care provider any questions or problems concerning the psychotropic medications. Verify patient understands the information that has been provided, and understands, accepts, and agrees to psychotropic medications. Review patients safety plan and importance of patient to report to staff while hospitalized if patient is ever a danger to self/others, or unable to care for self, and upon discharge, the importance for patient to contact [facility] or [facility], or go to the nearest emergency room, if patient is ever a danger to self/others, or unable to care for self. Recommend that upon discharge patient establish medication management treatment with a psychiatric provider, establishes routine therapy appointments, and follow-up with primary care provider. Verify patient understands and agrees to these recommendations. 11/03/17 08:46 Subjective: Following up with patient for evaluation of mood and safety. Patient reports, Feeling better...just really tired. Patient agrees to continue current medications including Depakote. Patient reports she slept about 8 hours last night, and reports good response from Depakote for sleep and reports her mood has improved. Patient reports she is taking current medications as prescribed, is tolerating medications with side effects, and reports good response from Klonopin for sleep. Patient reports appetite is good, denies symptoms of genna , and denies any other psychiatric symptoms, stating she is going just fine. Patient denies SI/HI. Patient reports she is attending groups. Patient agrees to conference call this am with her OP providers from [facility], Dr. Garcia and Sophia Abbott. Patient agrees to continue Depakote ER at 1,750 mg po QHS for acute stabilization with plan to possibly taper to lower dose and agrees to begin Abilify Maintena 400 mg IM every 3 weeks with OP provider. Patient agrees to stay until Tuesday with plan to discharge to appointment with her OP therapist Sophia, and with follow-up appointment with OP provider, Dr. Garcia. Objective: Vital Signs Temp Pulse Resp BP Pulse Ox 36.6 C 98 15 103/67 96 11/03/17 06:00 11/03/17 06:00 11/03/17 06:00 11/03/17 06:00 11/03/17 06:00 Laboratory Results 10/27/17 22:35 10/27/17 22:35 Consulted with treatment team staff for update on patients progress in treatment. Nurses report patient is less irritable, less labile, and argumentative no longer argumentative with staff. Staff reports patient slept 7 hours, is taking meds as prescribed, is tolerating meds with no report of SEs , is attending groups, and denies SI/HI, and expresses no psychiatric symptoms. Psychiatric signs noted: depression symptoms noted: sad affect, psychomotor retardation; fatigue, tearful, irritable. No psychiatric complaints are expressed. Patient is improving with sleep and Depakote. She is currently tolerating medications with no reports of side effects, and with fair response symptoms. The patient presents casually dressed and with good hygiene, and looks stated age. Patient is sitting, posture is upright, and position is relaxed. Patient appears awake, alert, and responds appropriately and reasonably during interview. Patient is engaged, is argumentative with this interviewer, and emotional facial expression is sad and tearful. Patient is uncooperative, defensive, makes comfortable eye contact, and movements are voluntary, deliberate, coordinated, and smooth and even with no inappropriate movements. Patient makes laryngeal sounds effortlessly and shares conversation appropriately; pace of conversation is slow, and stream of talking is hesitant; articulation is clear and understandable; word choice is effortless and appropriate for education level; completes sentences, rate and volume are inappropriate for interview and setting. Tone is sad. Patient reports mood as just fine. Patients affect is flat/depressed with constricted range, incongruent with mood, and inappropriate to speech and circumstances. Patient has linear and logical thinking, with no loose associations, currently tangential thought, no thought blocking, no concrete thinking, or no other signs of formal thought disorder. Patient denies suicidal and homicidal ideation, and denies hallucinations and delusions. Patient appears to be a reliable historian with sound judgement and good insight into current condition. Patient has no apparent dysfunction in recent or remote memory noted , and no evidence of gross cognitive dysfunction noted at any point during the interview. - Time Spent With Patient Time Spent With Patient: 35 minutes, met with patient individually, and conference call with patient and patient's OP providers per patient request. - Pending Discharge Pending Discharge Within 24 Hours: No Pending Discharge Within 48 Hours: No ICD10 Worksheet Patient Problems: Problems Problem Status Onset Bipolar 1 disorder Acute
[2017-11-03] MEDS ORDERED: clonazePAM 0.5 MG TAB PO PRN (09:00)
[2017-11-03] MEDS: NICOTINE 14 MG/24 HR PATCH TD SCH (09:12)
[2017-11-03] MEDS: AQUAPHOR OINTMENT 3.5 OZ JAR TP SCH ×2 (09:12→21:05)
[2017-11-03] MEDS ORDERED: clonazePAM 0.5 MG TAB PO ONE (10:58)
--- NOTE | 2017-11-03 13:44 | ASMTBHDC ---
Notes Note: Notes: CC speaks with client briefly during check-in. Client denies any feelings of anxiety, depression, AVH or S/I-H/I. Client presents as sad/depressed while stating, " I just don't want to talk right now." CC reached out again for client's appt times to [facility]; waiting to hear back. Date Signed: 11/03/2017 01:43 PM Electronically Signed By:Bobby Hughes
[2017-11-03] MEDS ORDERED: DIVALPROEX ER 250 MG TAB PO SCH (16:10)
[2017-11-03] MEDS: QUEtiapine FUMARATE 50 MG TAB PO SCH (21:04)
[2017-11-04] MEDS: AQUAPHOR OINTMENT 3.5 OZ JAR TP SCH ×2 (08:47→21:12)
[2017-11-04] MEDS: NICOTINE 14 MG/24 HR PATCH TD SCH (08:48)
--- NOTE | 2017-11-04 09:13 | SOAPPROG ---
SOAP Progress Note Assessment/Plan: Assessment: Bipolar I disorder. Improving. Genna resolved; depression improving. (see subjective/objective). Patient could benefit from continued inpatient hospitalization for crisis stabilization, safety, and medication evaluation. Plan: Review psychotropic medication treatment informed consent and recommendations. After reviewing risk and benefits, patient agrees to continue medications with the following changes: lower Klonopin to 0.25 mg po BID PRN. No other medication changes at this time as more time is needed to determine ongoing tolerability and efficacy. Depakote level ordered for 11/06/17 at 0600. Plan is to continue to observe patient for response and side effects from medications , and ongoing monitoring and evaluation; plan for patient to remain hospitalized over the weekend to ensure genna has resolved, mood is stable, and to plan for safe discharge on Tuesday. Next steps are for patient to meet with director of critical care to plan a safe discharge plan and establish outpatient services for ongoing treatment. Consider discharge Tuesday if patient is in stable condition, safe, and has a safe discharge plan. PSYCHOTROPIC MEDICATION TREATMENT INFORMED CONSENT and RECOMMENDATIONS: Review nature of condition, diagnosis, and prognosis. Review nature and purpose of psychotropic medication treatment. Review type of psychotropic medications being ordered. Review risk and benefits of psychotropic medication treatment. Review probable length of time patient will need to take medications. Review risk and benefits of not undergoing psychotropic medication treatment. Review alternative treatments to psychotropic medications. Review psychotropic medications contraindications, drug-drug interactions, side effects, and importance of reporting any side effects to a psychiatric provider or nurse during inpatient hospitalization, and upon discharge to patients psychiatric outpatient provider, primary care provider, or other health career representative. Review importance of asking a nurse, psychiatric provider, or primary care provider any questions or problems concerning the psychotropic medications. Verify patient understands the information that has been provided, and understands, accepts, and agrees to psychotropic medications. Review patients safety plan and importance of patient to report to staff while hospitalized if patient is ever a danger to self/others, or unable to care for self, and upon discharge, the importance for patient to contact [facility] or [facility], or go to the nearest emergency room, if patient is ever a danger to self/others, or unable to care for self. Recommend that upon discharge patient establish medication management treatment with a psychiatric provider, establishes routine therapy appointments, and follow-up with primary care provider. Verify patient understands and agrees to these recommendations. 11/04/17 09:11 11/04/17 09:14 Subjective: Following up with patient for evaluation of mood and safety. Patient reports, Feeling like I have improved...slept well last night. Patient agrees to continue current medications including Depakote. Patient reports she slept about 10 hours last night, and reports good response from Depakote for sleep and reports her mood has improved. Patient reports she is taking current medications as prescribed, is tolerating medications with side effects, and reports good response from Seroquel for sleep. Patient reports appetite is good , denies symptoms of genna, and denies any other psychiatric symptoms. Patient denies SI/HI. Patient reports she is attending groups. Patient requests this interviewer to contact her OP therapist and OP psychiatrist at [facility] to provide updates on her improvement and agrees with plan to discharge Tuesday. Objective: Vital Signs Temp Pulse Resp BP Pulse Ox 36.6 C 74 14 97/58 L 96 11/04/17 06:00 11/04/17 06:00 11/04/17 06:00 11/04/17 06:00 11/04/17 06:00 Laboratory Results 10/27/17 22:35 10/27/17 22:35 Consulted with treatment team staff for update on patients progress in treatment. Nurses report patient is less irritable, less labile, and argumentative no longer argumentative with staff. Staff reports patient slept 10 hours, is taking meds as prescribed, is tolerating meds with no report of SEs , is attending groups, and denies SI/HI, and expresses no psychiatric symptoms. Psychiatric signs noted: mild depression No psychiatric complaints are expressed. Patient is improving with sleep and Depakote. She is currently tolerating medications with no reports of side effects, and with fair response symptoms. The patient presents casually dressed and with good hygiene, and looks stated age. Patient is sitting, posture is upright, and position is relaxed. Patient appears awake, alert, and responds appropriately and reasonably during interview. Patient is engaged, relates well with this interviewer, and emotional facial expression appropriate. Patient is cooperative, makes comfortable eye contact, and movements are voluntary, deliberate, coordinated, and smooth and even with no inappropriate movements. Patient makes laryngeal sounds effortlessly and shares conversation appropriately; pace of conversation is appropriate, articulation is clear and understandable; word choice is effortless and appropriate for education level; completes sentences, rate and volume are appropriate for interview and setting. Tone is appropriate. Patient reports mood as good...improved a lot after getting rest. Patients affect is appropriate with variable range, congruent with mood, and appropriate to speech and circumstances. Patient has linear and logical thinking, with no loose associations, tangential thought, no thought blocking, no concrete thinking, or no other signs of formal thought disorder. Patient denies suicidal and homicidal ideation, and denies hallucinations and delusions. Patient appears to be a reliable historian with sound judgement and good insight into current condition. Patient has no apparent dysfunction in recent or remote memory noted, and no evidence of gross cognitive dysfunction noted at any point during the interview. - Time Spent With Patient Time Spent With Patient: 30 minutes, met with patient individually. - Pending Discharge Pending Discharge Within 24 Hours: No Pending Discharge Within 48 Hours: No ICD10 Worksheet Patient Problems: Problems Problem Status Onset Bipolar 1 disorder Acute
--- NOTE | 2017-11-04 12:50 | ASMTBHDC ---
Notes Note: Notes: CC called Sophia and confirmed client's out-patient appointments Follow Up with: [facility] Sophia Abbott [address] [place] [address] Appointment: TuesdayNovember 07 (11/07/17) at 1pm Dr. Jose Funes. [address] [place] [address] Appointment: TuesdayNovember 09 (11/09/17) at 11am. Date Signed: 11/04/2017 12:49 PM Electronically Signed By:Bobby Hughes
[2017-11-04] MEDS ORDERED: clonazePAM 0.5 MG TAB PO ONE (13:20)
[2017-11-04] MEDS: NAPROXEN SODIUM 220 MG TAB PO PRN (14:45)
[2017-11-04] MEDS: QUEtiapine FUMARATE 50 MG TAB PO SCH (21:12)
[2017-11-04] MEDS: DIVALPROEX ER 500 MG TAB PO SCH (21:12)
[2017-11-05] MEDS: AQUAPHOR OINTMENT 3.5 OZ JAR TP SCH ×2 (09:27→22:11)
[2017-11-05] MEDS: NICOTINE 14 MG/24 HR PATCH TD SCH (09:27)
[2017-11-05] MEDS: lamoTRIgine 25 MG TAB PO SCH (09:27)
[2017-11-05] MEDS: NAPROXEN SODIUM 220 MG TAB PO PRN ×2 (11:58→22:54)
[2017-11-05] MEDS: ACETAMINOPHEN 325 MG TAB PO PRN (15:57)
--- NOTE | 2017-11-05 16:46 | SOAPPROG ---
SOAP Progress Note Assessment/Plan: Assessment: Per Macario Ramirez's note: Bipolar I disorder. Improving. Genna resolved; depression improving. (see subjective/objective). Patient could benefit from continued inpatient hospitalization for crisis stabilization, safety, and medication evaluation. 11/04/17: Subjective: Following up with patient for evaluation of mood and safety. Patient reports, Feeling like I have improved...slept well last night. Patient agrees to continue current medications including Depakote. Patient reports she slept about 10 hours last night, and reports good response from Depakote for sleep and reports her mood has improved. Patient reports she is taking current medications as prescribed, is tolerating medications with side effects, and reports good response from Seroquel for sleep. Patient reports appetite is good , denies symptoms of genna, and denies any other psychiatric symptoms. Patient denies SI/HI. Patient reports she is attending groups. Patient requests this interviewer to contact her OP therapist and OP psychiatrist at [facility] to provide updates on her improvement and agrees with plan to discharge Tuesday. 11/05/17 16:42 1. Patient denies any sxs of psychosis and genna, and there is no evidence of such sxs at this time. 2. MD reviewed r/se's of her multiple psychotropic meds, and the risk of relapse and recurrence if she discontinues meds. Patient verbalized her understanding of risks of polypharmacy as well as risks associated with noncompliance or abrupt discontinuation of medications. 3. Slept 8.5 hrs last night. 4. Plan to d/c early next week. F/U with [facility], appointments have been scheduled. Subjective: Met with patient, reviewed chart and d/w staff. Patient presents calm, cooperative, pleasant, without any agitation or distress. She denies racing thoughts, pressured speech, grandiose delusions, increased activity, decreased need for sleep and any reckless or irrational impulses. She denies hallucinations, paranoid or IOR. She denies any SI/HI. Patient feels she is ready for discharge on Tuesday. Agrees to f/u with Dr. Garcia and [facility] providers. Objective: Vital Signs Temp Pulse Resp BP Pulse Ox 36.4 C 75 14 96/58 L 95 11/05/17 06:00 11/05/17 06:00 11/05/17 06:00 11/05/17 06:00 11/05/17 06:00 Laboratory Results 10/27/17 22:35 10/27/17 22:35 MSE: Affect: Euthymic Mood: "Good" TP: Goal-directed TC: Denies SI/HI, no evidence of psychosis Insight/Judgment: Improved - Time Spent With Patient Time Spent With Patient: 15" - Pending Discharge Pending Discharge Within 24 Hours: No Pending Discharge Within 48 Hours: No ICD10 Worksheet Patient Problems: Problems Problem Status Onset Bipolar 1 disorder Acute
[2017-11-05] MEDS: DIVALPROEX ER 500 MG TAB PO SCH (22:11)
[2017-11-05] MEDS: QUEtiapine FUMARATE 50 MG TAB PO SCH (22:11)
[2017-11-06] MEDS: NAPROXEN SODIUM 220 MG TAB PO PRN ×2 (06:48→14:57)
[2017-11-06] MEDS: AQUAPHOR OINTMENT 3.5 OZ JAR TP SCH ×2 (09:38→21:34)
[2017-11-06] MEDS: NICOTINE 14 MG/24 HR PATCH TD SCH (09:38)
--- NOTE | 2017-11-06 14:40 | SOAPPROG ---
SOAP Progress Note Assessment/Plan: Assessment: Per Macario Ramirez's note: Bipolar I disorder. Improving. Genna resolved; depression improving. (see subjective/objective). Patient could benefit from continued inpatient hospitalization for crisis stabilization, safety, and medication evaluation. 11/04/17: Subjective: Following up with patient for evaluation of mood and safety. Patient reports, Feeling like I have improved...slept well last night. Patient agrees to continue current medications including Depakote. Patient reports she slept about 10 hours last night, and reports good response from Depakote for sleep and reports her mood has improved. Patient reports she is taking current medications as prescribed, is tolerating medications with side effects, and reports good response from Seroquel for sleep. Patient reports appetite is good , denies symptoms of genna, and denies any other psychiatric symptoms. Patient denies SI/HI. Patient reports she is attending groups. Patient requests this interviewer to contact her OP therapist and OP psychiatrist at [facility] to provide updates on her improvement and agrees with plan to discharge Tuesday. 11/05/17 16:42 1. Patient denies any sxs of psychosis and genna, and there is no evidence of such sxs at this time. 2. MD reviewed r/se's of her multiple psychotropic meds, and the risk of relapse and recurrence if she discontinues meds. Patient verbalized her understanding of risks of polypharmacy as well as risks associated with noncompliance or abrupt discontinuation of medications. 3. Slept 8.5 hrs last night. 4. Plan to d/c early next week. F/U with [facility], appointments have been scheduled. 11/06/17 14:36 1. Met with patient and her boyfriend, Augustine. Patient is looking forward to discharge tomorrow. She would like to leave by 11am so she can get back to [place] for her appointment with CM at [facility] at 1300. 2. Don may come pick her up tomorrow, but if he has to work, patient will take bus. 3. 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 4. F/u with [facility] for therapy and meds. 5. Likely to d/c tomorrow. Subjective: Met with patient, reviewed chart and d/w staff. Patient says she is optimistic and positive about the future. She is looking forward to going home tomorrow. She is calm, appropriate and pleasant. She denies any SI/HI. There is no evidence of manic sxs or psychotic sxs. Boyfriend, Augustine, says he feels she is "ready" to come home. No concerns about safety. Objective: Vital Signs Temp Pulse Resp BP Pulse Ox 36.3 C 83 14 102/63 95 11/06/17 06:00 11/06/17 06:00 11/06/17 06:00 11/06/17 06:00 11/06/17 06:00 Laboratory Results 10/27/17 22:35 10/27/17 22:35 MSE: Affect: Euthymic Mood: "Good" TP: Linear, goal-directed TC: Denies any SI/HI, no AH/VH Insight/Judgment: Improved - Time Spent With Patient Time Spent With Patient: 20" - Pending Discharge Pending Discharge Within 24 Hours: Yes Pending Discharge Date: 11/07/17 (Likely to d/c tomorrow ) Pending Discharge Time: 11:00 ICD10 Worksheet Patient Problems: Problems Problem Status Onset Bipolar 1 disorder Acute
[2017-11-06] MEDS: MAG HYDROX/AL HYDROX/SIMETH 30 ML UDCUP PO PRN (14:59)
--- NOTE | 2017-11-06 15:00 | ASMTBHDC ---
Notes Note: Notes: Patient plans to discharge tomorrow . She has an appointment at [facility] tomorrow at 1:00 and would like to be discharged no later than 11:00. She thinks her boyfriend will be giving her a ride home. Patient is sleeping well and she reports that she is feeling good in the morning with a lower dose of her sleep medication. She is attending groups. She slept 6.5 hours last night. Date Signed: 11/06/2017 02:59 PM Electronically Signed By:Marilyn Gregorio
[2017-11-06] MEDS: QUEtiapine FUMARATE 50 MG TAB PO SCH (21:34)
[2017-11-06] MEDS: DIVALPROEX ER 500 MG TAB PO SCH (21:34)
[2017-11-07 06:52] VITALS: BP 111/59
[2017-11-07] MEDS: NICOTINE 14 MG/24 HR PATCH TD SCH (08:48)
[2017-11-07] MEDS: lamoTRIgine 25 MG TAB PO SCH (09:10)
[2017-11-07] MEDS: AQUAPHOR OINTMENT 3.5 OZ JAR TP SCH (09:10)
--- NOTE | 2017-11-07 13:43 | BDS ---
[f rep st] [facility] DISCHARGE SUMMARY REASON FOR ADMISSION: The patient was placed on a M1 hold by her outpatient psychiatrist due to the patient being in a manic state and engaging in high- risk behaviors, including nonadherence to medication regimen. The patient was admitted involuntarily on an M1 hold due to being a danger to herself and being gravely disabled due to her bipolar mental illness. ADMISSION DIAGNOSES: Bipolar 1 disorder, most recent episode constantino, severe. ADMISSION PHYSICAL EXAMINATION: Patient was seen at the previous admission at this hospital and was seen for history and physical on 10/12/2017. For further information regarding this history and physical, please refer to the note completed by Dr. Kalpana Monroy. ADMISSION LABORATORY DATA: CBC dated 10/27/2017, within normal limits, except for red blood cells low at 3.73, hemoglobin low at 12.1, hematocrit low at 36.9 , neutrophils low at 32.1, lymphocytes high at 46.9, eosinophils elevated at 18.9, and absolute eosinophils elevated at 0.54. D-dimer was completed on 10/27, and was elevated at 0.70. Chemistry completed on 10/27/2017, was within normal limits, except for creatinine was low at 0.5. Fasting lipid panel was completed on 10/13/2017, was within normal limits, except for LDL cholesterol calculated was low at 73. Patient's valproic acid level, which was drawn on , was 84.9, and a valproic acid level was also drawn on 11/07/2017, and currently pending. HOSPITAL COURSE: The most prominent symptoms and behaviors while the patient was here were the following: Hypomania, including decreased need for sleep. The patient was only sleeping 4 or 5 hours. The patient was labile, tearful, grandiose. TARGET SYMPTOMS WHILE HOSPITALIZED: Mood, including constantino and depression symptoms. Treatment modalities utilized were as follows: The patient engaged in milieu and group therapy. Depakote ER 1500 mg p.o. at bedtime was started to target constantino symptoms. Medication was tolerated with no report of side effects and with good response. The patient received Abilify Maintena 400 mg IM on October 27. The medication was tolerated with no report of side effects and with good response. Patient was also on a low dose of Klonopin for anxiety and agitation during hospitalization. This medication was tapered and the patient had not been on the medication for several days prior to her discharging. Seroquel 50 mg p.o. at bedtime was started to target mood and insomnia symptoms. This medication was tolerated with no report of side effects and with good response. The patient has improved considerably with no signs of psychiatric symptoms and no psychiatric symptoms expressed. The patient reports she has improved since admission. States to be in stable condition feels safe to discharge, and contracts for safety. The patient's response to treatment was good. There were no adverse or unexpected results of treatment. The patient was safe throughout her stay. She was engaged in treatment, attended, engaged in groups and was appropriate with staff and other patients. The treatment team consensus is the patient is in stable condition to discharge at this time. The patient's [facility] providers [facility] were active in her treatment while she was here, including several conference calls with the patient and this interviewer. The outpatient providers agree with the patient to discharge today back to their care and treatment. CONDITION AT DISCHARGE: Patient is in stable condition and is no longer a danger to self or others, and is not gravely disabled due to mental illness. Patient is no longer in need of inpatient level of care, and can be safely and effectively treated within the community. The patients level of risk at time of discharge is low based on the risk assessment below following this discharge summary. MSE: The patient is casually dressed and with good hygiene, and looks stated age. Patient is sitting, posture is upright, and position is relaxed. Patient appears awake, alert, and responds appropriately and reasonably during interview. Patient is engaged, relates well to interviewer, and emotional facial expression is appropriate to situation and changes appropriately with topic. Patient is cooperative, makes comfortable eye contact, and movements are voluntary, deliberate, coordinated, and smooth and even with no inappropriate movements. Patient makes laryngeal sounds effortlessly and shares conversation appropriately; pace of conversation is appropriate, and stream of talking is fluent; articulation is clear and understandable; word choice is effortless and appropriate for education level; completes sentences, occasionally pausing to think; rate and volume are appropriate for interview and setting. Patient reports mood as euthymic. Patients affect is stable with full variable range, congruent with mood, and appropriate to speech and circumstances. Patient has linear and logical thinking, with no loose associations, tangential thought, thought blocking, concrete thinking, or any other signs of formal thought disorder. Patient denies suicidal and homicidal ideation, and denies hallucinations and delusions. Patient appears to be a reliable historian with sound judgement and good insight into current condition. Patient has no apparent dysfunction in recent or remote memory noted , and no evidence of gross cognitive dysfunction noted at any point during the interview. DISCHARGE DIAGNOSES: Bipolar 1 disorder, severe, most recent episode constantino. DISCHARGE MEDICATIONS: Depakote ER 1500 mg p.o. at bedtime, the patient was provided with 30 day prescription; Seroquel 50 mg p.o. at bedtime; the patient was provided with a 30 day prescription; Lamictal 25 mg every other day; the patient received a dose today and plans to discuss titration of this medication with her outpatient provider on Tuesday and therefore did not receive any prescriptions at the time of discharge. DISPOSITION: Patient left hospital independently and voluntarily with her friend today and plans to attend a followup outpatient appointment with her therapist at [facility] today at 1 p.m. and the patient has an appointment with her outpatient psychiatrist with [facility] on Tuesday. The patient and this interviewer spoke to her outpatient providers, her therapist and her outpatient psychiatrist today during this discharge interview and her outpatient providers agree with her discharging today. FOLLOWUP PLAN: air traffic coordinator reports the appropriate outpatient follow-up services have been established and outpatient appointments have been scheduled. The patient received written instructions with times and dates of outpatient follow-up appointments. The following follow-up recommendations were provided to the patient at discharge: Continue psychotropic medications as prescribed and attend appointments as scheduled. Report any side effects to a psychiatric outpatient provider, a primary care provider, or other health health care analyst. Address any questions or problems concerning the psychotropic medications with a psychiatric outpatient provider, a primary care provider, or other health health care analyst. Contact [facility] or [facility], or go to the nearest emergency room, if you are ever a danger to yourself/others, or unable to care for yourself. As soon as possible, establish a routine medication management treatment with a psychiatric provider, establish routine therapy appointments, and follow-up with a primary care provider. LEGAL COURSE: The patient was admitted on an M1 hold and then was placed on a short-term certification during her course of hospitalization. The patient discharged today independently and voluntarily. ATTITUDE AT TIME OF DISCHARGE: The patients attitude was positive at time of discharge, and patient reports looking forward to discharging today. The patient reports she feels safe to discharge, is no longer a danger to herself or others, is in stable condition, and contracts for safety. Patient states she will continue medications as prescribed, and establish medication management treatment with an outpatient provider after discharge. Patient reports she understands the information that has been provided to her, and she understands, accepts, and agrees to psychotropic medications. Patient reports internal protective factors as the coping skills she has learned while hospitalized here, and she plans to continue to practice these coping skills after discharge. Patient reports external protective factors as grandchildren, horse program at [facility]. Patient describes looking forward to continuing her treatment, going back muslim, going back to employment at [employer] after discharge. Patient describes future plans as visited her mother and grandchildren in [place] and plan to move her mother back to [place]. Patient reports her family and friends look forward to her discharging today. Patients brother reports patient has a safe discharge plan and is safe to discharge. Patients OP providers from [facility] agree with her discharging today. PENDING LABORATORY DATA: none at time of discharge ADVANCE DIRECTIVES: There were no advanced directives on file for this patient and the patient was full code during hospitalization. The following psychotropic medication treatment informed consent and recommendations were provided to the patient at time of discharge. Patient reports she understands, accepts, and agrees to the information that has been provided. PSYCHOTROPIC MEDICATION TREATMENT INFORMED CONSENT and RECOMMENDATIONS: Review nature of condition, diagnosis, and prognosis. Review nature and purpose of psychotropic medication treatment. Review type of psychotropic medications being prescribed. Review risk and benefits of psychotropic medication treatment. Review probable length of time will need to take medications. Review risk and benefits of not undergoing psychotropic medication treatment. Review alternative treatments to psychotropic medications. Review psychotropic medications contraindications, side effects, and importance of reporting any side effects to a psychiatric provider, primary care provider, or other health health care analyst. Review importance of her asking a psychiatric provider or primary care provider any questions or problems concerning the psychotropic medications. Review importance of reporting to a psychiatric provider, primary care provider, or other health health care analyst if she plans to or becomes . Review safety plan and the importance to contact [facility] or [facility] , or go to the nearest emergency room, if ever a danger to yourself/others, or unable to care for yourself. Recommend upon discharge to establish routine medication management treatment with a psychiatric provider, establish routine therapy appointments, and follow-up with a primary care provider. Verify patient understands, accepts, and agrees to the information that has been provided. SUICIDE ASSESSMENT FIVE-STEP EVALUATION AND TRIAGE (1) RISK FACTORS: (a) Suicidal behavior: history of suicide attempt 2 years ago (b) Current/past psychiatric disorders: bipolar I disorder (c) Stein symptoms: none (d) Family history: none (e) Precipitants/Stressors/Interpersonal: none (f) Change in treatment: discharge from psychiatric hospital (g) Access to firearms: none (2) PROTECTIVE FACTORS: (a) Internal: coping skills (b) External: family, friends, and future (3) SUICIDAL INQUIRY: (a) Ideation: none (b) Plan: none (c) Behaviors: none (d) Intent: none (4) RISK LEVEL: Low: modifiable risk factors, strong protective factors; no self -injurious or suicidal ideation. Intervention: treatment plan to reduce symptoms: medications and therapy, provided emergency/crisis numbers, follow-up plan. /[id number]/MODL MTDD
== END 2017-11-07 09:50 | disposition home or self-care (01) | DRG 885 ==
LOC: BBEH 22:40
PROVIDERS: ADMIT Registered Nurse; ATTEND Registered Nurse
DX: F31.2 Bipolar disorder, current episode manic severe with psychotic features (principal); M79.89 Other specified soft tissue disorders; T42.6X6A Underdosing of other antiepileptic and sedative-hypnotic drugs, initial encounter
CPT/HCPCS: J0401; Q9967

== ENCOUNTER 2018-02-16 15:42 | Inpatient (IN) | payer OTHER ==
--- NOTE | 2018-02-16 16:31 | EDPHY ---
H & P Stated Complaint: Med clear for ECT Time Seen by Provider: 02/16/18 16:03 HPI/ROS: CHIEF COMPLAINT: Medical clearance for ECT therapy HISTORY OF PRESENT ILLNESS: The patient is referred to the emergency department for medical clearance for ECT therapy. The patient has a history of bipolar mood disorder which has been refractory to typical medications. The patient denies any suicidal or homicidal ideation. The patient has established care with the psychiatrist here [facility] and will be admitted on a voluntary basis to the inpatient psychiatric unit. Patient has no acute medical complaints such as fever, cough or congestion. She denies any history of fall or trauma. She denies any acute neurologic complaints. REVIEW OF SYSTEMS: A comprehensive 10 point review of systems is otherwise negative aside from elements mentioned in the history of present illness. Source: Patient Exam Limitations: No limitations - Personal History Current Tetanus/Diphtheria Vaccine: Yes Current Tetanus Diphtheria and Acellular Pertussis (TDAP): Yes - Medical/Surgical History Hx Asthma: No Hx Chronic Respiratory Disease: No Hx Diabetes: No Hx Cardiac Disease: No Hx Renal Disease: No Hx Cirrhosis: No Hx Alcoholism: No Hx HIV/AIDS: No Hx Splenectomy or Spleen Trauma: No Other PMH: Bipolar, tubal ligation, pneumothorax, rt arm cut down - Social History Smoking Status: Current every day smoker - Physical Exam Exam: General Appearance: Alert, no distress Eyes: Pupils equal and round no pallor or injection ENT, Mouth: Mucous membranes moist Respiratory: There are no retractions, lungs are clear to auscultation Cardiovascular: Regular rate and rhythm Gastrointestinal: Abdomen is soft and nontender, no masses, bowel sounds normal Neurological: A&O, normal motor function, normal sensory exam, normal cranial nerves Skin: Warm and dry, no rashes Musculoskeletal: Neck is supple nontender Extremities: symmetrical, full range of motion Psychiatric: Cooperative, endorses symptoms of depression, denies suicidal ideation or homicidal ideation Constitutional: Initial Vital Signs Temperature (C) 36.7 C 02/16/18 15:45 Heart Rate 88 02/16/18 15:45 Respiratory Rate 16 02/16/18 15:45 Blood Pressure 102/73 02/16/18 15:45 O2 Sat (%) 97 02/16/18 15:45 O2 Delivery Mode Room Air Allergies/Adverse Reactions: lithium Allergy (Verified 10/05/17 21:51) Home Medications: Medication Instructions Recorded Abitenzin 02/16/18 Medical Decision Making - Diagnostics EKG Interpretation: EKG: Complete interpretation has been separately recorded in the [employer] archive. Summary impression: Sinus rhythm, rate 61 ED Course/Re-evaluation: The patient presents to the ED for medical clearance prior to going to ECT. The patient has no acute medical complaints. Her EKG demonstrates no evidence of arrhythmia. Her laboratory testing is unremarkable. The patient does not meet criteria for a involuntary psychiatric hold. The patient was seen in consultation by the psychiatric service and has been accepted for voluntary inpatient admission at [address] [place] [address] Jeffry Hill. I have filled out the EMTALA transfer form. Differential Diagnosis: Differential diagnosis considered includes depression, psychosis, bipolar mood disorder, grave disability - Data Points Laboratory Results: Laboratory Results 02/16/18 16:20 02/16/18 16:20 02/16/18 02/16/18 02/16/18 16:20 16:20 16:20 WBC 6.55 10^3/uL 10^3/uL (3.80-9.50) RBC 4.13 10^6/uL L 10^6/uL (4.18-5.33) Hgb 13.2 g/dL g/dL (12.6-16.3) Hct 39.4 % % (38.0-47.0) MCV 95.4 fL fL (81.5-99.8) MCH 32.0 pg pg (27.9-34.1) MCHC 33.5 g/dL g/dL (32.4-36.7) RDW 13.0 % % (11.5-15.2) Plt Count 288 10^3/uL 10^3/uL (150-400) MPV 9.0 fL fL (8.7-11.7) Neut % (Auto) 40.2 % % (39.3-74.2) Lymph % (Auto) 46.7 % H % (15.0-45.0) [place] % (Auto) 9.9 % % (4.5-13.0) Eos % (Auto) 2.4 % % (0.6-7.6) Baso % (Auto) 0.5 % % (0.3-1.7) Nucleat RBC Rel Count 0.0 % % (0.0-0.2) Absolute Neuts (auto) 2.63 10^3/uL 10^3/uL (1.70-6.50) Absolute Lymphs (auto) 3.06 10^3/uL H 10^3/uL (1.00-3.00) Absolute Monos (auto) 0.65 10^3/uL 10^3/uL (0.30-0.80) Absolute Eos (auto) 0.16 10^3/uL 10^3/uL (0.03-0.40) Absolute Basos (auto) 0.03 10^3/uL 10^3/uL (0.02-0.10) Absolute Nucleated RBC 0.00 10^3/uL 10^3/uL (0-0.01) Immature Gran % 0.3 % % (0.0-1.1) Immature Gran # 0.02 10^3/uL 10^3/uL (0.00-0.10) Sodium 140 mEq/L mEq/L (135-145) Potassium 4.0 mEq/L mEq/L (3.3-5.0) Chloride 103 mEq/L mEq/L (97-110) Carbon Dioxide 30 mEq/l mEq/l (22-31) Anion Gap 7 mEq/L L mEq/L (8-16) BUN 11 mg/dL mg/dL (7-23) Creatinine 0.6 mg/dL mg/dL (0.6-1.0) Estimated GFR > 60 Glucose 89 mg/dL mg/dL (70-100) Calcium 9.8 mg/dL mg/dL (8.5-10.4) Urine Opiates Screen NEGATIVE (NEGATIVE) Urine Barbiturates NEGATIVE (NEGATIVE) Ur Phencyclidine Scrn NEGATIVE (NEGATIVE) Ur Amphetamine Screen NEGATIVE (NEGATIVE) U Benzodiazepines Scrn NEGATIVE (NEGATIVE) Urine Cocaine Screen NEGATIVE (NEGATIVE) U Marijuana (THC) Screen NEGATIVE (NEGATIVE) Ethyl Alcohol < 10 mg/dL mg/dL (0-10) Departure - Departure Disposition: Home, Routine, Self-Care Clinical Impression: Bipolar 1 disorder Condition: Good Referrals: Liliya Nolan [Primary Care Provider] - As per Instructions
[2018-02-16 16:43] LABS: PLATELET COUNT 288 10^3/uL (150-400)
--- NOTE | 2018-02-16 17:18 | CPEKG ---
Test Reason : OPEN Blood Pressure : / mmHG Vent. Rate : 061 BPM Atrial Rate : 060 BPM P-R Int : 168 ms QRS Dur : 079 ms QT Int : 392 ms P-R-T Axes : 061 049 038 degrees QTc Int : 395 ms Sinus rhythm Confirmed by Justin Carrasquillo ([id number]) on 02/16/2018 5:17:53 PM Referred By: Confirmed By:Justin Carrasquillo
--- NOTE | 2018-02-16 18:37 | ASMTTLCEVL ---
TLC Evaluation - Basic Information Evaluation Start Date and 02/16/2018 06:00 PM Time Hospital Status Answers: Voluntary Narrative Notes: Pt is a 58 yo, , unemployed, female with history of diagnosis of bipolar disorder. Pt self-presented to [facility] ED on a voluntary basis at the advisement of her outpatient psychiatrist at [facility], Dr. Ericka Garcia for admission to for ECT treatment under Dr. Jeffry Hill. In a formal referral letter from Dr. Garcia dated 02/03/18, pt has been under Dr. Das care since December 2017 and a patient at [facility] since 2005. Pt is currently on [facility] Assertive Community Treatment Team. She has severe and treatment refractory bipolar disorder type I. Despite numerous medication trials and combinations, pt continue to regularly cycle between severe and prolonged constantino and at times catatonic depression. She has had multiple psychiatric hospitalizations. Her severe illness has also led to several psychosocial challenges including homelessness, difficulty holding jobs, legal issues, and family discord. Currently, she is depressed following and episode of constantino which lasted nearly 3 months and consisted of three separation psychiatric hospitalizations. Given the severity of her bipolar disorder and multiple unsuccessful or suboptimal medication trials, Dr. Garcia believes pt is a good candidate for ECT. Her current medications are Abilify Maintena 400 mg IM q21 days. When she is manic, Depakote is typically added but because of side effects, she does not like to take this medication chronically. Past inefficacious and/or intolerable medications have included Zyprexa, Saphris, Seroquel, Latuda, [place]own, and Lamictal. Even while on a mood stabilizer or antipsychotic medication. Pt has become manic if given an antidepressant medication (past antidepressant medications have included Wellbutrin, Paxil, and Cymbalta). She is extremely sensitive to medication changes. Per her most recent admission to , pt was manic and gravely disabled due to not taking her medications as prescribed. She was engaging in high risk behaviors, i.e...letting male strangers stay overnight with her; was trying to buy a truck to drive to [place], visiting [employer] to obtain loans. She lost her job because her constantino causes her to be irritable, argumentative and socially disinhibited. She risks legal involvement. Diagnosis History Notes: Pt was diagnosed with Bipolar I Disorder at the age of 18. Prior suicide attempts Notes: Pt denied current suicidal or homicidal ideation. She reported a history of suicide attempts by overdose, most recently 2 years ago that resulted in pt going to [facility]. Prior hospitalizations Notes: Pt reported a history of numerous inpatient psychiatric hospitalizations since age 18. Pt previously reported that she "grew up in [facility] hospitals" with a stay at [facility] prior to [place] and an admission to [facility] in October of 2016. Pt was discharged from [facility] 10/17/17 following a 6 day stay. She was readmitted to on 10/27/17 to 11/07/17. History of violence Notes: No reported past history of aggression/violence. Therapist: Sophia Travis at [facility]. Psychiatrist: Ericka Garcia MD at [facility]. Medications (name, dosage, route, freq uency) Notes: Abilify Maintena 400 mg IM q21 days. When she is manic, Depakote is typically added but because of side effects, she does not like to take this medication chronically. Allergies/Reaction Notes: Juliustown. Sleep Notes: Pt reports she has been sleeping all the time radha Im depressed. If Im not sleeping, Im lying down and just thinking. Appetite Notes: Pt reports her appetite is normal and eats big meal a day and has a bowl of cereal for breakfast. Medical/Surgical history Notes: Noncontributory. Substance use history (frequency, intensity, his tory, duration) Notes: Pt reported she has used alcohol in the past but none in the past 18 years. Pt reported she quit smoking at the end of September 2017. She reported her last use of marijuana was in early September 2017. She denied all other substance use including meth, cocaine, crack, heroin, prescription medication abuse. Family composition Notes: Pt has a brother. Need for family Answers: No participation in patient's care Family psychiatric/substance abuse history Notes: Pt reported a history of bipolar disorder on both sides of her family. She denied any family history of suicide attempts or completions. She reported having a brother that abuses alcohol. Developmental history Notes: Pt was born in [place], [place]. Her parents were at the time of her and she was raised the majority of her life in [place] by both parents until age 12 and then she moved with her mother to her grandmothers home in [place]. She reported that she met all developmental milestones and reported no learning delays or difficulties. Pt denied any childhood history of TBIs, LOC or concussions. She denied any childhood history of physical, emotional or sexual abuse/trauma. Abuse concerns Answers: None Marital status/children Notes: Pt has been three times, three times and has 2 children, ages 37 and 30, and five grandchildren. Living situation Notes: Pt is currently homeless. Sexual history/orientation Notes: Heterosexual Peer support/family strengths Notes: Pt identifies her brother as a support. Education level/history Notes: Pt has an associates degree and a degree in [employer]. Work history Notes: Pt is unemployed. Pt receives $1,033 in disability each month. Notes: N/A Legal Notes: Pt has been in [facility] before when off her medications. She currently faces no legal charges. Adventist/Spiritual Notes: Pt reported she restorationism practice is Episcopalian. Leisure Notes: None reported. Collateral Notes: Previous [facility] records Patient's strengths Answers: Motivated for Treatment (Please select at least TWO strengths): Willingness [facility] Evaluation - Mental Status Exam Appearance: Answers: Appropriate Eye Contact: Answers: Good/Direct Mood: Answers: Depressed Affect: Answers: Calm Behavior: Answers: Cooperative Speech: Answers: Relevant Logical Thought Process: Answers: Organized Alert Depression Answers: Flat Affect Signs/Symptoms: Sad Mood Hallucinations: Answers: None Pt reported to have Answers: No suicidal/self-injuring ideation/behavior? Pt reported to be making Answers: No suicidal/self-injuring threats? Pt reported to have Answers: No aggression/assault ideation/behavior? Pt reported to be making Answers: No aggression/assault threats? Pt exhibits inability to Answers: Yes care for self/grave disability? Ideation/behavior is Answers: Yes chronic? History of Answers: Yes suicidal/self-injuring ideation, behavior, or threats? History of Answers: No aggressive/assaultive ideation, behavior, or threats? History of serious Answers: No physical harm to self/others while in treatment setting? TLC Evaluation - Suicide/Homicide Risk Suicide Risk Factors: Answers: < 20 or > 40 Years of Age Bipolar Disorder Current Suicidal Answers: No Ideation? Suicide Internal Answers: Absence of Psychosis Protective Factors: Suicide External Answers: Responsibility to Protective Factors: Children Ranking of patient's Answers: Moderate suicidal risk: Ranking of patient's Answers: Low homicidal risk: TLC Evaluation - Wrap-up AXIS I Diagnosis (include DSM-V and ICD-10 codes), must also be entered in [employer], which is the source of truth. Notes: Bipolar I Disorder, current or most recent episode depressed, severe 296.53 (F31.4) Evaluation End Date and 02/16/2018 06:30 PM Time (HH:MM): Date Signed: 02/16/2018 06:36 PM Electronically Signed By:Linda Giles
--- NOTE | 2018-02-16 19:38 | ASMTTCLDSP ---
TLC Discharge Disposition Disposition: Answers: Admit If Answers: Yes DISCHARGED: Patient/family given suicide hotline info & SAMA brochure? Discharge Concerns/Recommendations: Notes: Per directive and order from [facility] on-call psychiatrist, Jeffry Hill MD, Dr. Hill agreed to accept pt for voluntary admission to . For inpatient Jeffry Hill admission, the following psychiatrist agreed to accept patient for admission to [facility] Date Signed: 02/16/2018 07:37 PM Electronically Signed By:Linda Giles
[2018-02-16] MEDS ORDERED: MAGNESIUM HYDROXIDE 30 ML UDCUP PO PRN (22:21)
[2018-02-16] MEDS ORDERED: LORazepam 0.5 MG TAB PO PRN (22:21)
[2018-02-16] MEDS ORDERED: ACETAMINOPHEN 325 MG TAB PO PRN (22:21)
[2018-02-16] MEDS ORDERED: MAG HYDROX/AL HYDROX/SIMETH 30 ML UDCUP PO PRN (22:21)
[2018-02-16] MEDS ORDERED: NICOTINE POLACRILEX 2 MG GUM B PRN (22:21)
[2018-02-16] MEDS ORDERED: OLANZapine DISINTEGR 5 MG TAB PO PRN (22:21)
--- NOTE | 2018-02-17 08:53 | ASMTBHMTP ---
Master Treatment Plan Master Treatment Plan Answers: Depressed Mood without for: Suicidal Ideation Date: 02/17/2018 Diagnosis on Admission: Bipolar I Disorder, current or most recent episode depressed, severe 296.53 (F31.4) Expected length of stay: 3-7 Reason for admission: Notes: Pt is a 58 yo, , unemployed, female with history of diagnosis of bipolar disorder. Pt self-presented to [facility] ED on a voluntary basis at the advisement of her outpatient psychiatrist at [facility], Dr. Ericka Garcia for admission to for ECT treatment under Dr. Jeffry Hill.[facility] Assertive Community Treatment Team. She has severe and treatment refractory bipolar disorder type I. Despite numerous medication trials and combinations, pt continue to regularly cycle between severe and prolonged constantino and at times catatonic depression. She has had multiple psychiatric hospitalizations. Currently, she is depressed following and episode of constantino which lasted nearly 3 months and consisted of three separation psychiatric hospitalizations. Given the severity of her bipolar disorder and multiple unsuccessful or suboptimal medication trials, Dr. Garcia believes pt is a good candidate for ECT. Her current medications are Abilify Maintena 400 mg IM q21 days. When she is manic, Depakote is typically added but because of side effects, she does not like to take this medication chronically. She is extremely sensitive to medicatins. Patient's stated presenting problems: Notes: "I was admitted for ECT for depression". Patient's goals for treatment: Notes: "To feel better". Patient's strengths: Notes: "I'm not really happy about myself, I'm lost right now, just depressed. When I make a commitment I stick to it". Identify supports outside of hospital: Notes: "My brother and a friend, that's all I have right now". Discharge criteria: Notes: Suicidal ideation will resolve and patient will have a plan to safely manage recurrent SI. Initial disposition plan/considerations: Notes: Pt. to return to [facility] services when stable. Master Treatment Plan Required Signatures Psychiatrist signature: Answers: Jeffry Hill MD: RN on-shift signature: Answers: RN: Patient signature: Answers: Patient: Date Signed: 02/17/2018 08:52 AM Electronically Signed By:Chrissy Steven
--- NOTE | 2018-02-17 11:25 | ASMTCMCOM ---
CM Note CM Note Notes: CC met with ct. to develop MTP. Ct. presented with flat and depressed affect but was pleasant and cooperative. Her goal is to start ECT treatment. Ct. signed [facility] for [facility]. Date Signed: 02/17/2018 11:16 AM Electronically Signed By:Chrissy Steven
--- NOTE | 2018-02-17 13:54 | BCON ---
INTERNAL MEDICINE CONSULTATION DATE OF CONSULTATION: 02/17/2018 REFERRING PHYSICIAN: Jeffry Hill MD REASON FOR REFERRAL: Medical clearance for inpatient [facility] stay. HISTORY OF PRESENT ILLNESS: This patient came to the emergency department for voluntary admission to inpatient [facility] for ECT treatment for bipolar disorder with depression. She currently has no medical complaints. PAST MEDICAL HISTORY: 1. Bipolar disorder. 2. History of pneumothorax. 3. Degenerative joint disease of the knees. PAST SURGICAL HISTORY: She has had a tubal ligation. MEDICATIONS: She was on injectable long-term, aripiprazole, and she had recent steroid injections into both knees in early January. SOCIAL HISTORY: She is homeless and she is a smoker. FAMILY HISTORY: Noncontributory. REVIEW OF SYSTEMS: She denies fevers, chills, weight change, cough, dyspnea, nausea, vomiting, constipation, diarrhea, or dysuria. Otherwise, a 10-point review of systems is negative. PHYSICAL EXAM: VITAL SIGNS: Blood pressure is 112/73. Heart rate is 70. Respiratory rate is 16. Oxygen saturation is 95% on room air. Temperature is 36.6 degrees centigrade. Her weight is 72.6 kg for a body mass index of 24.3. GENERAL: This is a well-nourished, well-developed woman lying in bed, sits up to interact with the examiner, cooperative, and in no acute distress. HEENT: Extraocular movements are intact. Pupils are equal, round, and reactive to light. Mucous members are moist. Dentition is in good condition. She has a crowded airway, Mallampati class 3. NECK: Supple. HEART: A regular rate and rhythm with no murmurs, rubs, or gallops. HEART: Sounds are somewhat distant. LUNGS: Clear to auscultation bilaterally. ABDOMEN: Benign. EXTREMITIES: There is no cyanosis, clubbing, or edema. NEUROLOGIC: She is alert and oriented x3. Cranial nerves 2-12 are grossly intact. There is no focal weakness and sensation is intact to light touch. LABORATORY STUDIES: From yesterday in the emergency department, CBC was overall within normal limits. She had a slight elevation of absolute lymphs of no clinical significance and a slight decrement in her red blood cell count also of no clinical significance. Serum chemistry revealed normal renal function and electrolytes. Hemoglobin A1c was normal at 5.3. Lipid panel showed slightly elevated triglycerides at 154 and a slightly low VLDL cholesterol. Otherwise, lipid panel was normal. Toxicology screen in the serum was negative for ethyl alcohol and the urine was negative for any substances of abuse. ASSESSMENT/RECOMMENDATIONS: 1. Mental health issues pending ECT treatment. 2. Degenerative joint disease of the knees. Acetaminophen has been prescribed and this should be adequate. If she has pain that is not controlled with the acetaminophen, she could have a trial of a nonsteroidal anti-inflammatory drug such as ibuprofen. 3. Tobacco dependence syndrome. She was encouraged to quit smoking. I see no medical contraindications to this patient's continued stay on the inpatient behavioral health unit or to any psychiatric medications or procedures. Thank you very much for including me in the care of this patient and please do not hesitate to contact me or the hospitalist service should there be a need for further medical evaluation. /[id number]/MODL MTDD
--- NOTE | 2018-02-17 17:40 | BAPA ---
DATE OF SERVICE: 02/17/2018 CHIEF COMPLAINT: "I just need some help. My brain is not working anymore." HISTORY OF PRESENT ILLNESS: Patient is a 58-year-old female, known to us from previous psychiatric admissions, who has a history of severe and treatment-resistant bipolar disorder. She typically has presented in psychotic constantino and was here in both September and October of this year. Her outpatient psychiatrist, Dr. Garcia, has indicated that the patient has moved to a depressive predominant phase and she is becoming unable to function. The patient corroborates this stating that her mood is severely depressed, and she feels unmotivated and unenergetic, helpless, hopeless, anhedonic and "like I'm just going to ." She states she is having [id number] slowing of her cognition and has actually reported this on several occasions in the past. She stated in January of 2015 when she was with us that she her primary complaint was cognitive slowing, and we were unable to necessarily evaluate or reproduce this. 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 I reviewed with her the risks, benefits, and alternatives of ECT, as well as the goals which would be similar to what she stated. I indicated to her that I believe ECT could definitely help with the quality of her mood currently, relieving the depression, but then provide for better overall stability. It also might help to sensitize her to better effect from the medications. She has a long history of medication intolerance and resistance and is currently taking only the Abilify Maintena 400 mg every three weeks. I do not have a complete medication history from her, though verbal history from her outpatient treatment team indicates that she has failed numerous antidepressant trials, and we have been hesitant to try any antidepressants as she is prone to sudden switches to psychotic constantino. PAST PSYCHIATRIC HISTORY: Largely as above. She sees Dr. Garcia in the ACT team at [facility]. She has had numerous previous medication trials in the past including Zyprexa, Saphris, Seroquel, Latuda, lithium, and Lamictal. She has developed a sensitivity to lithium and states that the other medicines were ineffective for her. She has been unable to tolerate antidepressant medications with rapid switches to psychotic constantino. Her last several antidepressants included Wellbutrin, Paxil, and Cymbalta. ALLERGIES: Listed to lithium. CURRENT MEDICATIONS: Only the Abilify Maintena 400 mg every three weeks. It is unclear at this time when she last had that injection. PAST MEDICAL HISTORY: Noncontributory. SOCIAL HISTORY: Patient is single and has 2 grown children who both live in [place]. She states that "they are sick of me because they say I won't take my medication." She has no current contact with them. She is currently homeless, having lost her apartment when she was in the hospital recently. She has no recent legal problems, though has a history of multiple arrests during manic phases including having stolen a car in the past and got sentenced to [facility] time. She has a history of marijuana use, but she denies any of this since September of 2017. She has no other history of substance use. FAMILY HISTORY: Reveals a reported bipolar disorder on both sides of her family , though no specific members are noted. ADMISSION LABORATORY: CBC is normal. Serum chemistries are normal. Lipid profile shows triglycerides of 154, otherwise normal. Urine drug screen is negative for all substances. Alcohol is less than detectable. Hemoglobin A1c is normal at 5.3. EKG is read as sinus rhythm by Dr. Justin Carrasquillo. MENTAL STATUS EXAMINATION: Reveals a healthy-appearing female, casually and appropriately dressed. She appears quite depressed, displaying significant psychomotor retardation with her eyes downcast and dysphoric, though tearful affect. Her mood is described as "really depressed." Her thought process is linear and goal directed. Her thought content reveals no evidence of acute psychosis at this time. She is alert and oriented to person, place, time, and situation, and her sensorium is clear. She denies any thoughts of suicide, homicide, or violence. Her intellect appears to be average as evidenced by her educational and occupational history, fund of knowledge vocabulary. Her insight and judgment appear to be good. IMPRESSION: Bipolar type 1 disorder, most recent episode depressed, severe, without psychosis, chronic illness, recurrent illness, homelessness, lack of natural supports. The patient is a 58-year-old female with a history of severe recurrent and treatment-resistant bipolar disorder. She presents at this time in a prolonged depressive phase and her outpatient team has recommended ECT. I agree that I think ECT could offer her some advantage to break this cycle of severe instability that has caused her so much mental pain as well as psychosocial dysfunction. She is willing to proceed after a thorough review of the risks, benefits, and alternatives. I have indicated to the patient that she is a good candidate, having failed 2 or more adequate trials of mood stabilizer and antidepressant medications. She is clearly unable to tolerate antidepressants with an almost immediate switch to severe psychotic constantino, and atypical antipsychotics have been ineffective. She has not tolerated lithium and Lamictal. She has had an extended duration of subtherapeutic response to her current regimen. She is a high suicide risk, given the chronicity of her illness and her current level of despair and depression. She has prominent neurovegetative symptoms and a history of mood disorder with psychosis. She has no known primary personality disorder and no contraindicating medical illnesses. I discussed with the patient that her main alternative to ECT is ongoing medication management. Given her bipolar diagnosis and her history of treatment resistance, I quoted a less than 20% chance of reaching remission with further medication trials. I have quoted her a 50% or greater chance of reaching remission with ECT. I have discussed the course of treatment with ECT including the acute course being [facility] a Zquuhv-Fitbhyses-Veqpwk basis. She understands that the typical range of acute treatments is between 9 and 12. I also discussed with her the need for continuation treatment on a weekly basis to prevent relapse and possible longer-term maintenance. She understands there is no guarantee that ECT will be effective. I reviewed with her the likelihood of extremely rare, rare, uncommon, and common side effects of ECT. I discussed the major risks of ECT including occurring 1 in 10,000, and other potential risks to the cardiovascular and central nervous systems. Common side effects such as nausea, headaches, and agitation were reviewed. She is not at particular increased risk for either the life-threatening or common side effects. Particular time was spent discussing transient and persistent cognitive side effects of ECT. She states that she is experiencing all these now and that she often experiences the lack of retained memories when she is manic. She states, "I've been through that a million times. It doesn't bother me." I emphasized to her that she would have some lack of registration during the treatments, but that we overall expect her cognition to improve if the ECT is helpful to her. I discussed with the patient the behavioral restrictions requisite with ECT, including n.p.o. requirements, time frames, 24-hour monitoring on treatment days , no driving during the acute phase of treatment or on any treatment day, and medication adjustments that could occur during and after treatment. The patient was given a full packet of ECT educational materials and she indicates that she will review these and ask any questions. Patient will be on the inpatient unit to begin her treatment until she feels she is able to care for herself and that a proper discharge plan is in place. ESTIMATED LENGTH OF STAY: 14 days. /[id number]/MODL MTDD
--- NOTE | 2018-02-17 18:12 | PDMN ---
Medical Necessity Medical necessity: Pt meets IP criteria per & [facility] [id number]; est los >2 mn for eval/tx of bipolar type 1 disorder w/recent severe, depressed episode; admit for ECT & further monitoring; hx homelessness; per H&P & order 02/16/18
--- NOTE | 2018-02-18 07:35 | SOAPPROG ---
SOAP Progress Note Assessment/Plan: Assessment: 58yo CF with hx of severe BMD and more recently in treatment resistant depressive phase admitted for ECT 02/17/18 13:29 staff report pt slept 13hr, depressed. calm, cooperative, good ec, nml speech rate, soft-spoken, pt reports mood is "dragging... low mood", affect restricted, remaining in bed during interview, feels hopeful for ECT, denied psychotic sxs, no delusions, denied any SI. denied physical c/o or any s/e to current meds, stating she is on Abilify Maintenna q3wks and received it recently. i/j seem intact. motivated for treatment. PLAN; ECT scheduled to start this week Objective: Vital Signs Temp Pulse Resp BP Pulse Ox 36.8 C 95 16 106/60 94 02/18/18 06:00 02/18/18 06:00 02/18/18 06:00 02/18/18 06:00 02/18/18 06:00 - Time Spent With Patient Time Spent With Patient: 15min - Pending Discharge Pending Discharge Within 24 Hours: No Pending Discharge Within 48 Hours: No ICD10 Worksheet Patient Problems: Problems Problem Status Onset Bipolar 1 disorder Acute
--- NOTE | 2018-02-19 12:40 | ASMTCMCOM ---
CM Note CM Note Notes: Pt. reports feeling "just zenon empty", adding this feeling is the reason she came to the hospital. Pt. reports sleeping "good" and eating well. Pt. reports attending some groups. Pt. reports no issues with her current medications. Pt. stated she is "real tired and just zenon depressed". Pt. denied SI, HI, AVH and paranoia. Pt. reports getting her first ECT treatment tomorrow, stating she is "anxious and nervous at the same time". Pt. stated "hope it [ECT[ works". Pt. presents as alert, somewhat depressed, groomed, constricted affect, good eye contact and a friendly demeanor. Staff report pt. sleeping 11 hours, being medication complaint and isolating in her room Date Signed: 02/19/2018 12:39 PM Electronically Signed By:Aleta Perez
--- NOTE | 2018-02-19 19:59 | SOAPPROG ---
SOAP Progress Note Assessment/Plan: Assessment: 58yo CF with hx of severe BMD and more recently in treatment resistant depressive phase admitted for ECT 02/18/18 13:29 staff report pt slept 13hr, depressed. calm, cooperative, good ec, nml speech rate, soft-spoken, pt reports mood is "dragging... low mood", affect restricted, remaining in bed during interview, feels hopeful for ECT, denied psychotic sxs, no delusions, denied any SI. denied physical c/o or any s/e to current meds, stating she is on Abilify Maintenna q3wks and received it recently. i/j seem intact. motivated for treatment. PLAN; ECT scheduled to start this week 02/19/18 15:22 slept. remains isolative. brother visited today. reports felt a little better after brother's visit. they are close. he is older. brought her sunflowers. has been ruminating on numerous losses as a result of last manic episode, including friends and housing. has been reading materials/info provided about ECT. still motivated for ECT for treatment of her depression and hopeful. in bed, in room most of the day. did shower. casually dressed, groomed, nml eye contact, nml speech vol/rate, psychom activity decr, depressed mood, congruent affect, denies any SI. thoughts linear , reality based. denied psychotic sxs, i/j seem intact. cognition intact. no physical complaints. PLAN: start ECT this week Objective: Vital Signs Temp Pulse Resp BP Pulse Ox 36.4 C 85 16 100/69 95 02/19/18 06:00 02/19/18 06:00 02/19/18 06:00 02/19/18 06:00 02/19/18 06:00 - Time Spent With Patient Time Spent With Patient: 15min - Pending Discharge Pending Discharge Within 24 Hours: No Pending Discharge Within 48 Hours: No ICD10 Worksheet Patient Problems: Problems Problem Status Onset Bipolar 1 disorder Acute
[2018-02-20] MEDS ORDERED: ONDANSETRON DISINTEGRATING 4 MG TAB PO PRN (06:00)
[2018-02-20] MEDS ORDERED: CITRIC ACID/SODIUM CITRATE 30 ML UDCUP PO PRN (06:00)
[2018-02-20] MEDS ORDERED: fentaNYL 100 MCG/2 ML INJ ONE (06:10)
[2018-02-20] MEDS ORDERED: MIDAZOLAM 2 MG/2 ML VIAL ONE (06:10)
[2018-02-20] MEDS ORDERED: LIDOCAINE 2% 5 ML SDV ONE (06:11)
[2018-02-20] MEDS ORDERED: GLYCOPYRROLATE 0.2 MG/1 ML VIAL ONE (06:11)
[2018-02-20] MEDS ORDERED: ONDANSETRON 4 MG/2 ML VIAL ONE (06:11)
[2018-02-20] MEDS ORDERED: ONDANSETRON DISINTEGRATING 4 MG TAB ONE (06:12)
[2018-02-20] MEDS ORDERED: ETOMIDATE 20 MG/10 ML VIAL ONE (06:12)
[2018-02-20] MEDS ORDERED: CITRIC ACID/SODIUM CITRATE 30 ML UDCUP ONE (06:12)
[2018-02-20] MEDS ORDERED: SUCCINYLCHOLINE CHLORIDE 200 MG/10 ML VIAL ONE (06:13)
[2018-02-20] MEDS ORDERED: ROCURONIUM 50 MG/5 ML VIAL ONE (06:13)
[2018-02-20] MEDS: NS 1,000 ML IV PRN (06:52)
--- NOTE | 2018-02-20 07:30 | PDECTPN ---
ECT Progress Note Patient Problems: Problems Problem Status Onset Code Bipolar 1 disorder Acute F31.9 Date: 02/20/18 Treatment#: 1 ECT provider: Brandon Hill Anesthesia: Ej Colby Stimulus dose (%): 30 Pulse width: 0.5 ECT EMG (sec): 0 ECT EEG (sec): 74 ECT treatment type: bilateral QIDS-SR Total Score: 24 QIDS-SR Question #12 Score: 1 MMSE Total Score (Max = 21): 19 Next ECT date: 02/22/18 Next ECT time: 06:00 O/P psychiatrist follow up with Dr.: Dr. Garcia O/P psychiatrist follow up: direct communication Home medications: Medication Instructions Recorded ARIPiprazole [Abiliflucero Maintena] 400 mg IM Q21D 02/16/18 Medication review: completed Treatment plan frequency: 3 times per week ECT narrative: Pt presents for initial acute course ECT treatment. She reports continued depressed mood, feelings of helplessness and hopelessness. Is hopeful ECT will help her, however. States she is ready for treatment. Asks appropriate questions. Activity and speech are nl. Affect is dysphoric, blunted, stable, approp. Mood is "pretty low." TP is linear. TC reveals no psychosis. SI persists. Underwent bilateral ECT without complication.
--- NOTE | 2018-02-20 07:37 | PDHPUP ---
History & Physical Update H&P update statement: This history and physical update is based on an assessment of the patient which was completed after admission or registration (within 24 hours), but prior to the surgery/procedure. H&P update: H&P reviewed & patient examined, no change in patient's condition since H&P completed
--- NOTE | 2018-02-20 07:38 | PDANEPAE ---
ECT Pre Anesthetic Evaluation Allergies/Adverse Reactions: lithium Allergy (Verified 10/05/17 21:51) Patient ID confirmed: Yes H&P reviewed: Yes Pre-anesthetic history reviewed: Yes Heart: regular rate and rhythym Lungs: no respiratory distress, clear to auscultation Mallampati Score: Class 2 Home Medications: Medication Instructions Recorded ARIPiprazole [Abiliflucero Maintena] 400 mg IM Q21D 02/16/18 Medication review: completed Patient interviewed: Yes Patient examined: Yes Anesthetic plan discussed with patient: Yes Anesthetic risks discussed with patient: Yes ECT Pre-Anesthetic History - Height & Weight Height: 172.72 cm Weight: 72.15 kg BMI: 24.19 - Anesthesia History Hx Anesthesia Complications (with details): None. Family Hx Anesthesia Complications: None. - Medications In the Past 6 Months the Patient Has Taken: Steroids, Aspirin - Tobacco/Alcohol/Drug Use Smoking Status: Current every day smoker Total Number Of Years As A Smoker: 30 Packs Per Day: 1 Hx Drug/Substance Abuse: No Alcohol Use: No Alcohol Quantity: None. Tobacco/Alcohol/Drug Use History Comment: Pt denies any drug or alcohol use, besides cigarettes - Prior Surgeries/Hospitalizations Prior Surgeries: Tubal ligation in 1987, surgery for broken collarbone, cracked ribs, and punctured lung in "the 90s" Prior Medical Hospitalizations: Hospitalizaion for collarbone, cracked ribs, and punctured lung in "the 90s" - Pulmonary History ECT Hx Asthma: No Hx Abnormal Chest X-Ray: No Hx Oxygen in Use at Home: No - Cardiovascular History Hx Hypertension: No Currently Uses Hypertension Medication: No Hx Arrhythmias: No Hx Palpitations: No Hx Chest Pain: No Hx Coronary Artery / Peripheral Vascular Disease: No Hx Blood Clot: No - Neurologic History Hx Cerebrovascular Accident: No Hx CT Scan Or MRI Of The Brain: No Hx Epilepsy, Convulsions, Seizures, Or Blackouts: No Hx Frequent Or Severe Headaches: No Hx Numbness: No Hx Neurologic Disorder: No - Dental History Current Dental Issues: Other Dental History Comment: Pt describes numerous fillings, unable to give exact figure. - Endocrine History Hx Diabetes: No Current Daily Insulin Injections: No Hx Thyroid Problems: No - Renal/Urologic History Hx Renal Disorders: No Hx Urinary Tract Problems: No - Liver History Hx Hepatic Disorders: No - Cancer History Hx Cancer: No - Hematology History Hx Unexplained Bleeding Of Any Type: No Hx Ease Of Bruising: No Hx Anemia: No - Gastrointestinal History Hx Gastroesophogeal Reflux Disease: No Hx Ulcers: No Hx Hiatal Hernia: No Hx Difficulty Swallowing: No - Musculoskeletal Hisory Hx Chronic Pain: Yes Chronic Pain Location: Joints Hx Arthritis: Yes Musculoskeletal History Comment: Chronic knee pain - Opthalmic History Hx Glaucoma: No Visual Assistive Devices: Glasses Hx Opthalmic Disorders: No - Other Health History Physical Disabililty: No Recent Cough, Cold, or Fever: No Significant Weight Loss In The Last 4 Months: No Possible the Patient Might be : No Other Health History Comment: Pt received Cortisone for knee inflammation on 01/25.
--- NOTE | 2018-02-20 09:21 | POSTANESTH ---
Post Anesthetic Evaluation Cardiovascular Status: Normal, Stable Respiratory Status: Normal, Stable Level of Consciousness/Mental Status: Can Participate in Eval, Alert and Oriented Pain Control: Adequate, Prn Tx Ordered Nausea/Vomiting Control: Adequate, Prn Tx Ordered Complications Possibly Related to Anesthesia: None Noted
--- NOTE | 2018-02-20 12:08 | ASMTCMCOM ---
CM Note CM Note Notes: Pt. was at ECT this morning. When pt. returned, CC attempted to meet. Pt. stated she didn't want to meet, as she was tired from ECT. Staff report pt. sleeping 12 hours and being medication compliant. Pt had her first ECT treatment this morning and is set to have another treatment on Tuesday. Date Signed: 02/20/2018 12:08 PM Electronically Signed By:Aleta Perez
--- NOTE | 2018-02-21 12:58 | ASMTCMCOM ---
CM Note CM Note Notes: Pt. was in bed when CC approached her. Pt. reports "I'm okay, just laying around being lazy". Pt. stated she slept "good". Pt. reports eating well. Pt. reports no issues with her current medications. Pt. stated "just feeling down". Pt. stated "don't feel much different" after getting ECT. CC discussed the process of ECT and encouraged pt. to ask her MD if she had any questions. Pt. stated "just worried about where I'm going to do once I'm done here", adding she does not have a place to live. Pt. reports [facility] is working on her housing. Pt. denied SI, HI, AVH and paranoia. Pt. agreed to have ECT on Tuesday. Pt. presents as alert, depressed, staring out window, groomed, and polite with staff. Staff report pt. sleeping 13 hours and being medication complaint. Date Signed: 02/21/2018 12:39 PM Electronically Signed By:Aleta Perez
--- NOTE | 2018-02-21 16:21 | SOAPPROG ---
[facility] Progress Note Assessment/Plan: Assessment: Plan: 02/21/18 16:32 Mood: Remains depressed. CCM. Subjective: Pt seen, discussed with staff. Reports feeling "really sad and down." States, "I don't feel any better. All I've done for the past month is lay around and feel sad." Isolating in her room, interacting appropriately, but rarely with others. Compliant with all meds. Objective: Vital Signs Temp Pulse Resp BP Pulse Ox 36.6 C 80 15 99/54 L 94 02/21/18 06:00 02/21/18 06:00 02/21/18 06:00 02/21/18 06:00 02/21/18 06:00 02/20/18 02/21/18 02/22/18 05:59 05:59 05:59 Intake Total 820 Balance 820 MSE: Calm, coop. Affect is dysphoric, tearful, stable. Mood is "sad." TP linear. TC reveals no acute psychotic sx's. SI persists, "What do I have to live for?" - Time Spent With Patient Time Spent With Patient: 25" ICD10 Worksheet Patient Problems: Problems Problem Status Onset Bipolar 1 disorder Acute
[2018-02-22] MEDS ORDERED: CITRIC ACID/SODIUM CITRATE 30 ML UDCUP PO PRN (04:00)
[2018-02-22] MEDS ORDERED: ONDANSETRON DISINTEGRATING 4 MG TAB PO PRN (04:00)
[2018-02-22] MEDS ORDERED: NS 1,000 ML IV PRN (04:00)
[2018-02-22] MEDS ORDERED: fentaNYL 100 MCG/2 ML INJ ONE (04:56)
[2018-02-22] MEDS ORDERED: LIDOCAINE 2% 5 ML SDV ONE (04:57)
[2018-02-22] MEDS ORDERED: ETOMIDATE 20 MG/10 ML VIAL ONE (04:57)
[2018-02-22] MEDS ORDERED: ONDANSETRON 4 MG/2 ML VIAL ONE (04:57)
[2018-02-22] MEDS ORDERED: GLYCOPYRROLATE 0.2 MG/1 ML VIAL ONE (04:57)
[2018-02-22] MEDS ORDERED: MIDAZOLAM 2 MG/2 ML VIAL ONE (04:57)
[2018-02-22] MEDS ORDERED: ROCURONIUM 50 MG/5 ML VIAL ONE (04:58)
[2018-02-22] MEDS ORDERED: SUCCINYLCHOLINE CHLORIDE 200 MG/10 ML VIAL ONE (04:59)
[2018-02-22] MEDS ORDERED: ONDANSETRON DISINTEGRATING 4 MG TAB ONE (06:03)
[2018-02-22] MEDS ORDERED: CITRIC ACID/SODIUM CITRATE 30 ML UDCUP ONE (06:03)
[2018-02-22] MEDS: NS 1,000 ML IV PRN (06:24)
--- NOTE | 2018-02-22 06:48 | PDANEPAE ---
ECT Pre Anesthetic Evaluation Allergies/Adverse Reactions: lithium Allergy (Verified 10/05/17 21:51) Patient ID confirmed: Yes H&P reviewed: Yes Pre-anesthetic history reviewed: Yes Heart: regular rate and rhythym, no murmur, rub, or gallop Lungs: no respiratory distress, clear to auscultation Mallampati Score: Class 2 ASA Status: I Home Medications: Medication Instructions Recorded ARIPiprazole [Abilify Maintena] 400 mg IM Q21D 02/16/18 Medication review: completed Patient interviewed: Yes Patient examined: Yes Anesthetic plan discussed with patient: Yes Anesthetic risks discussed with patient: Yes ECT Pre-Anesthetic History - Height & Weight Height: 172.72 cm Weight: 72.15 kg BMI: 24.19 - Anesthesia History Hx Anesthesia Complications (with details): None. Family Hx Anesthesia Complications: None. - Medications In the Past 6 Months the Patient Has Taken: Steroids, Aspirin - Tobacco/Alcohol/Drug Use Smoking Status: Current every day smoker Total Number Of Years As A Smoker: 30 Packs Per Day: 1 Hx Drug/Substance Abuse: No Alcohol Use: No Alcohol Quantity: None. Tobacco/Alcohol/Drug Use History Comment: Pt denies any drug or alcohol use, besides cigarettes - Prior Surgeries/Hospitalizations Prior Surgeries: Tubal ligation in 1987, surgery for broken collarbone, cracked ribs, and punctured lung in "the 90s" Prior Medical Hospitalizations: Hospitalizaion for collarbone, cracked ribs, and punctured lung in "the 90s" - Pulmonary History ECT Hx Asthma: No Hx Abnormal Chest X-Ray: No Hx Oxygen in Use at Home: No - Cardiovascular History Hx Hypertension: No Currently Uses Hypertension Medication: No Hx Arrhythmias: No Hx Palpitations: No Hx Chest Pain: No Hx Coronary Artery / Peripheral Vascular Disease: No Hx Blood Clot: No - Neurologic History Hx Cerebrovascular Accident: No Hx CT Scan Or MRI Of The Brain: No Hx Epilepsy, Convulsions, Seizures, Or Blackouts: No Hx Frequent Or Severe Headaches: No Hx Numbness: No Hx Neurologic Disorder: No - Dental History Current Dental Issues: Other Dental History Comment: Pt describes numerous fillings, unable to give exact figure. - Endocrine History Hx Diabetes: No Current Daily Insulin Injections: No Hx Thyroid Problems: No - Renal/Urologic History Hx Renal Disorders: No Hx Urinary Tract Problems: No - Liver History Hx Hepatic Disorders: No - Cancer History Hx Cancer: No - Hematology History Hx Unexplained Bleeding Of Any Type: No Hx Ease Of Bruising: No Hx Anemia: No - Gastrointestinal History Hx Gastroesophogeal Reflux Disease: No Hx Ulcers: No Hx Hiatal Hernia: No Hx Difficulty Swallowing: No - Musculoskeletal Hisory Hx Chronic Pain: Yes Chronic Pain Location: Joints Hx Arthritis: Yes Musculoskeletal History Comment: Chronic knee pain - Opthalmic History Hx Glaucoma: No Visual Assistive Devices: Glasses Hx Opthalmic Disorders: No - Other Health History Physical Disabililty: No Recent Cough, Cold, or Fever: No Significant Weight Loss In The Last 4 Months: No Possible the Patient Might be : No Other Health History Comment: Pt received Cortisone for knee inflammation on 01/25.
--- NOTE | 2018-02-22 06:51 | PDECTPN ---
ECT Progress Note Patient Problems: Problems Problem Status Onset Code Bipolar 1 disorder Acute F31.9 Date: 02/22/18 ECT provider: Brandon Hill Anesthesia: Ej Colby Stimulus dose (%): 35 Pulse width: 0.5 ECT EMG (sec): 0 ECT EEG (sec): 60 ECT treatment type: bilateral QIDS-SR Total Score: 18 QIDS-SR Question #12 Score: 1 MMSE Total Score (Max = 21): 21 Next ECT date: 02/24/18 Next ECT time: 07:00 O/P psychiatrist follow up with Dr.: Dr. Garcia O/P psychiatrist follow up: direct communication Home medications: Medication Instructions Recorded ARIPiprazole [Abiliflucero Maintena] 400 mg IM Q21D 02/16/18 Current treatment plan: acute phase Treatment plan frequency: 3 times per week ECT narrative: Pt presents for continued acute course ECT treatment. She continues to c/o depressed mood, feelings of helplessness and hopelessness. Slept adequately. Compliant with treatments on unit. Activity is decreased, speech is low, slow. Affect is dysphoric, blunted, stable, approp. Mood is "still depressed." TP is linear. TC reveals no psychosis. SI persists. Underwent bilateral ECT without complication.
--- NOTE | 2018-02-23 14:16 | ASMTCMCOM ---
CM Note CM Note Notes: The patient reported that the walk she took today was therapeutic. She reported that she is surprised by ECT treatment and wasn't expecting to feel better. She notices that her thinking is less negative. The patient remains concerned about housing following her discharge and is working with her OP clinical team to establish this before she discharges from the hospital. Date Signed: 02/23/2018 02:15 PM Electronically Signed By:Lacey Cruz
--- NOTE | 2018-02-23 15:42 | SOAPPROG ---
SOAP Progress Note Assessment/Plan: Assessment: Plan: 02/21/18 16:32 Mood: Remains depressed. CCM. 02/23/18 15:41 Mood: Tolerating treatment well. CCM. Subjective: Pt seen, discussed with staff. Reports feeling "about the same." Tolerating treatments well. Remains generally helpless, hopeless and depressed. Offers no c/o's. Objective: Vital Signs Temp Pulse Resp BP Pulse Ox 36.6 C 69 16 91/59 L 95 02/23/18 06:00 02/23/18 06:00 02/23/18 06:00 02/23/18 06:00 02/23/18 06:00 02/22/18 02/23/18 02/24/18 05:59 05:59 05:59 Intake Total 900 Balance 900 MSE: calm, coop. Affect is blunted, tearful at times, stable, approp. Mood is "the same, depressed." TP linear. TC reveals no psychosis. - Time Spent With Patient Time Spent With Patient: 15" ICD10 Worksheet Patient Problems: Problems Problem Status Onset Bipolar 1 disorder Acute
[2018-02-24] MEDS ORDERED: MIDAZOLAM 2 MG/2 ML VIAL ONE (06:35)
[2018-02-24] MEDS ORDERED: GLYCOPYRROLATE 0.2 MG/1 ML VIAL ONE (06:35)
[2018-02-24] MEDS ORDERED: fentaNYL 100 MCG/2 ML INJ ONE (06:35)
[2018-02-24] MEDS ORDERED: ONDANSETRON 4 MG/2 ML VIAL ONE (06:35)
[2018-02-24] MEDS ORDERED: ETOMIDATE 20 MG/10 ML VIAL ONE (06:36)
[2018-02-24] MEDS ORDERED: SUCCINYLCHOLINE CHLORIDE 200 MG/10 ML VIAL ONE (06:36)
[2018-02-24] MEDS ORDERED: ONDANSETRON DISINTEGRATING 4 MG TAB ONE (07:20)
[2018-02-24] MEDS ORDERED: CITRIC ACID/SODIUM CITRATE 30 ML UDCUP ONE (07:20)
[2018-02-24] MEDS ORDERED: NS 1,000 ML IV PRN (07:35)
[2018-02-24] MEDS ORDERED: ONDANSETRON DISINTEGRATING 4 MG TAB PO PRN (07:35)
[2018-02-24] MEDS ORDERED: CITRIC ACID/SODIUM CITRATE 30 ML UDCUP PO PRN (07:35)
[2018-02-24] MEDS: NS 1,000 ML IV PRN (07:43)
--- NOTE | 2018-02-24 07:46 | PDANEPAE ---
ANE Past Medical History - Cardiovascular History Hx Hypertension: No Hx Arrhythmias: No Hx Chest Pain: No Hx Coronary Artery / Peripheral Vascular Disease: No Hx Palpitations: No - Pulmonary History Hx Oxygen in Use at Home: No Hx Sleep Apnea: No - Neurologic History Hx Cerebrovascular Accident: No - Endocrine History Hx Diabetes: No - Renal History Hx Renal Disorders: No - Liver History Hx Hepatic Disorders: No - Cancer History Hx Cancer: No - Chronic Pain History Chronic Pain: No (Frequent knee pain) - Surgical History Prior Surgeries: Tubal ligation in 1987, surgery for broken collarbone, cracked ribs, and punctured lung in "the 90s" ANE Review of Systems Review of Systems: ANE Patient History - Allergies Allergies/Adverse Reactions: lithium Allergy (Verified 10/05/17 21:51) - Home Medications Home medications: home medication list seen and reviewed Home Medications: ARIPiprazole [Abilify Maintena] 400 mg IM Q21D 02/16/18 [Last Taken 02/15/18] - Anes Hx Anes Hx: no prior problems - Smoking Hx Smoking Status: Current every day smoker - Family Anes Hx Family Hx Anesthesia Complications: None. ANE Labs/Vital Signs - Labs Result Diagrams: 02/16/18 16:20 02/16/18 16:20 - Vital Signs Blood Pressure: 94/66 Heart Rate: 70 Respiratory Rate: 15 O2 Sat (%): 94 Height: 172.72 cm Weight: 72.15 kg ANE Physical Exam - Airway Neck exam: FROM Mallampati Score: Class 2 Mouth exam: normal dental/mouth exam - Pulmonary Pulmonary: no respiratory distress, no rales or rhonchi, clear to auscultation - Cardiovascular Cardiovascular: regular rate and rhythym, no murmur, rub, or gallop - ASA Status ASA Status: II ANE Anesthesia Plan Anesthesia Plan: GA with mask
--- NOTE | 2018-02-24 07:59 | PDECTPN ---
ECT Progress Note Patient Problems: Problems Problem Status Onset Code Bipolar 1 disorder Acute F31.9 Date: 02/24/18 ECT provider: Brandon Hill Stimulus dose (%): 40 Pulse width: 0.5 ECT EMG (sec): 0 ECT EEG (sec): 80 ECT treatment type: bilateral QIDS-SR Total Score: 18 QIDS-SR Question #12 Score: 1 MMSE Total Score (Max = 21): 19 Next ECT date: 02/27/18 Next ECT time: 07:30 O/P psychiatrist follow up with Dr.: Dr. Garcia O/P psychiatrist follow up: direct communication Home medications: Medication Instructions Recorded ARIPiprazole [Abiliflucero Maintena] 400 mg IM Q21D 02/16/18 Medication review: completed Current treatment plan: acute phase Treatment plan frequency: 3 times per week ECT narrative: Pt seen for continued acute course ECT treatment. She reports subjective improvement in mood. Pleased by this. More hopeful and upbeat today. Compliant with treatments on unit. Activity is improved, speech is more spontaneous, nl pace. Affect is brighter, smiling, stable, approp. Mood is "better." TP is linear. TC reveals no psychosis. SI persists. Underwent bilateral ECT without complication.
--- NOTE | 2018-02-24 08:09 | POSTANESTH ---
Post Anesthetic Evaluation Cardiovascular Status: Normal, Stable, Similar to Pre-Op Cond Respiratory Status: Normal, Stable, Similar to Pre-op Cond. Level of Consciousness/Mental Status: Can Participate in Eval, Unconscious Pain Control: Adequate, Prn Tx Ordered Nausea/Vomiting Control: Adequate, Prn Tx Ordered Complications Possibly Related to Anesthesia: None Noted
--- NOTE | 2018-02-25 16:43 | SOAPPROG ---
SOAP Progress Note Assessment/Plan: Assessment: Per Dr. Hill's recent note: 02/21/18 16:32 Mood: Remains depressed. CCM. 02/23/18 15:41 Mood: Tolerating treatment well. [facility]. Subjective: Pt seen, discussed with staff. Reports feeling "about the same." Tolerating treatments well. Remains generally helpless, hopeless and depressed. Offers no c/o's. Plan: 02/25/18 16:39 1. Patient reports improved mood, feels "good" today. 2. Denies any SE's from ECT. 3. Next ECT on Tuesday. 4. Patient is sleeping well and eating more. Subjective: Patient presents well-groomed, recently showered, clean clothes, "good" appetite. She reports mood has improved, she is less negative and depressed. She is more hopeful that ECT will help her. She denies SI/HI. Objective: Vital Signs Temp Pulse Resp BP Pulse Ox 36.6 C 80 14 94/58 L 94 02/25/18 06:00 02/25/18 06:00 02/25/18 06:00 02/25/18 06:00 02/25/18 06:00 02/24/18 02/25/18 02/26/18 05:59 05:59 05:59 Intake Total 850 Balance 850 MSE: Affect: Brighter, smiling Mood: "Good" TP: Linear TC: Denies SI/HI Insight/Judgment: Improved - Time Spent With Patient Time Spent With Patient: 15" - Pending Discharge Pending Discharge Within 24 Hours: No Pending Discharge Within 48 Hours: No ICD10 Worksheet Patient Problems: Problems Problem Status Onset Bipolar 1 disorder Acute
--- NOTE | 2018-02-26 14:44 | SOAPPROG ---
SOAP Progress Note Assessment/Plan: Assessment: Per Dr. Hill's recent note: 02/21/18 16:32 Mood: Remains depressed. CCM. 02/23/18 15:41 Mood: Tolerating treatment well. [facility]. Subjective: Pt seen, discussed with staff. Reports feeling "about the same." Tolerating treatments well. Remains generally helpless, hopeless and depressed. Offers no c/o's. Plan: 02/25/18 16:39 1. Patient reports improved mood, feels "good" today. 2. Denies any SE's from ECT. 3. Next ECT on Tuesday. 4. Patient is sleeping well and eating more. PLAN: 02/26/18 14:41 1. Well-groomed and dressed today. 2. Reports mood is "better" since starting ECT. 3. Wants help with housing situation. Recently lost housing. 4. Next ECT tomorrow. Subjective: Patient has showered, changed clothes and is well-groomed. She is sitting in day area watching TV. She reports ECT is "helping." She says "all my negativity is gone." She reports feeling less depressed and not as hopeless anymore. She is still worried about where she will live after d/c. She denies any SI/HI. Objective: Vital Signs Temp Pulse Resp BP Pulse Ox 36.7 C 78 14 100/65 98 02/26/18 06:00 02/26/18 06:00 02/26/18 06:00 02/26/18 06:00 02/26/18 06:00 02/25/18 02/26/18 02/27/18 05:59 05:59 05:59 Intake Total 850 Balance 850 MSE: Affect: Euthymic Mood: "Better" TP: Linear, goal-directed TC: Denies any SI/HI Insight/Judgment: Fair - Time Spent With Patient Time Spent With Patient: 15" - Pending Discharge Pending Discharge Within 24 Hours: No Pending Discharge Within 48 Hours: No ICD10 Worksheet Patient Problems: Problems Problem Status Onset Bipolar 1 disorder Acute
[2018-02-27] MEDS ORDERED: ONDANSETRON DISINTEGRATING 4 MG TAB PO PRN (09:34)
[2018-02-27] MEDS ORDERED: CITRIC ACID/SODIUM CITRATE 30 ML UDCUP PO PRN (09:34)
[2018-02-27] MEDS ORDERED: NS 1,000 ML IV PRN (09:34)
[2018-02-27] MEDS ORDERED: CITRIC ACID/SODIUM CITRATE 30 ML UDCUP ONE (10:59)
[2018-02-27] MEDS ORDERED: ONDANSETRON DISINTEGRATING 4 MG TAB ONE (10:59)
[2018-02-27] MEDS: NS 1,000 ML IV PRN (11:25)
[2018-02-27] MEDS ORDERED: ETOMIDATE 20 MG/10 ML VIAL ONE (12:09)
[2018-02-27] MEDS ORDERED: fentaNYL 100 MCG/2 ML INJ ONE (12:09)
[2018-02-27] MEDS ORDERED: MIDAZOLAM 2 MG/2 ML VIAL ONE (12:09)
--- NOTE | 2018-02-27 12:10 | POSTANESTH ---
Post Anesthetic Evaluation Cardiovascular Status: Normal, Stable Respiratory Status: Normal, Stable Level of Consciousness/Mental Status: Can Participate in Eval, Mildly Sleepy, Arousable Pain Control: Adequate, Prn Tx Ordered Nausea/Vomiting Control: Adequate, Prn Tx Ordered Complications Possibly Related to Anesthesia: None Noted
--- NOTE | 2018-02-27 12:11 | PDHPUP ---
History & Physical Update H&P update statement: This history and physical update is based on an assessment of the patient which was completed after admission or registration (within 24 hours), but prior to the surgery/procedure. H&P update: H&P reviewed & patient examined
--- NOTE | 2018-02-27 12:11 | PDANEPAE ---
ECT Pre Anesthetic Evaluation Allergies/Adverse Reactions: lithium Allergy (Verified 10/05/17 21:51) Patient ID confirmed: Yes H&P reviewed: Yes Pre-anesthetic history reviewed: Yes Heart: regular rate and rhythym Lungs: clear to auscultation Mallampati Score: Class 2 ASA Status: II Home Medications: Medication Instructions Recorded ARIPiprazole [Abiliflucero Maintena] 400 mg IM Q21D 02/16/18 Patient interviewed: Yes Patient examined: Yes See previous record: Yes Anesthetic plan discussed with patient: Yes Anesthetic risks discussed with patient: Yes ECT Pre-Anesthetic History - Height & Weight Height: 172.72 cm Weight: 73.028 kg BMI: 24.49 - Anesthesia History Hx Anesthesia Complications (with details): None. Family Hx Anesthesia Complications: None. - Medications In the Past 6 Months the Patient Has Taken: Steroids, Aspirin - Tobacco/Alcohol/Drug Use Smoking Status: Current every day smoker Total Number Of Years As A Smoker: 30 Packs Per Day: 1 Hx Drug/Substance Abuse: No Alcohol Use: No Alcohol Quantity: None. Tobacco/Alcohol/Drug Use History Comment: Pt denies any drug or alcohol use, besides cigarettes - Prior Surgeries/Hospitalizations Prior Surgeries: Tubal ligation in 1987, surgery for broken collarbone, cracked ribs, and punctured lung in "the 90s" Prior Medical Hospitalizations: Hospitalizaion for collarbone, cracked ribs, and punctured lung in "the 90s" - Pulmonary History ECT Hx Asthma: No Hx Abnormal Chest X-Ray: No Hx Oxygen in Use at Home: No - Cardiovascular History Hx Hypertension: No Currently Uses Hypertension Medication: No Hx Arrhythmias: No Hx Palpitations: No Hx Chest Pain: No Hx Coronary Artery / Peripheral Vascular Disease: No Hx Blood Clot: No - Neurologic History Hx Cerebrovascular Accident: No Hx CT Scan Or MRI Of The Brain: No Hx Epilepsy, Convulsions, Seizures, Or Blackouts: No Hx Frequent Or Severe Headaches: No Hx Numbness: No Hx Neurologic Disorder: No - Dental History Current Dental Issues: Other Dental History Comment: Pt describes numerous fillings, unable to give exact figure. - Endocrine History Hx Diabetes: No Current Daily Insulin Injections: No Hx Thyroid Problems: No - Renal/Urologic History Hx Renal Disorders: No Hx Urinary Tract Problems: No - Liver History Hx Hepatic Disorders: No - Cancer History Hx Cancer: No - Hematology History Hx Unexplained Bleeding Of Any Type: No Hx Ease Of Bruising: No Hx Anemia: No - Gastrointestinal History Hx Gastroesophogeal Reflux Disease: No Hx Ulcers: No Hx Hiatal Hernia: No Hx Difficulty Swallowing: No - Musculoskeletal Hisory Hx Chronic Pain: Yes Chronic Pain Location: Joints Hx Arthritis: Yes Musculoskeletal History Comment: Chronic knee pain - Opthalmic History Hx Glaucoma: No Visual Assistive Devices: Glasses Hx Opthalmic Disorders: No - Other Health History Physical Disabililty: No Recent Cough, Cold, or Fever: No Significant Weight Loss In The Last 4 Months: No Possible the Patient Might be : No Other Health History Comment: Pt received Cortisone for knee inflammation on 01/25.
--- NOTE | 2018-02-27 12:15 | PDECTPN ---
ECT Progress Note Patient Problems: Problems Problem Status Onset Code Bipolar 1 disorder Acute F31.9 Date: 02/27/18 ECT provider: Brandon Hill Anesthesia: Mariana Rush Stimulus dose (%): 100 Pulse width: 0.5 ECT EMG (sec): 27 ECT EEG (sec): 55 ECT treatment type: bilateral QIDS-SR Total Score: 6 QIDS-SR Question #12 Score: 0 MMSE Total Score (Max = 21): 21 O/P psychiatrist follow up with Dr.: Dr. Garcia O/P psychiatrist follow up: direct communication Home medications: Medication Instructions Recorded ARIPiprazole [Abilify Maintena] 400 mg IM Q21D 02/16/18 Medication review: completed Current treatment plan: acute phase Treatment plan frequency: 3 times per week ECT narrative: Pt seen for continued acute course ECT treatment. She reports continued subjective improvement in mood. Remains optimistic re: outcome of treatments. Discussed again overall plan of care. Activity and speech are normal. Affect is brighter, smiling, stable, approp. Mood is "better." TP is linear. TC reveals no psychosis. SI persists. Underwent bilateral ECT without complication.
--- NOTE | 2018-02-28 19:11 | SOAPPROG ---
SOAP Progress Note Assessment/Plan: Assessment: Plan: 02/21/18 16:32 Mood: Remains depressed. CCM. 02/23/18 15:41 Mood: Tolerating treatment well. CCM. 02/28/18 19:12 Mood: Slow improvement. CCM. Subjective: Pt seen, discussed with staff. Interviewed in Treatment Team meeting. Continues to isolate, feeling "pretty depressed and anxious." Primary source of anxiety remains housing situation. Team discussed with her again the plan to work with P on this. Cognition stable. No physcial c/o's. Objective: Vital Signs Temp Pulse Resp BP Pulse Ox 36.9 C 62 15 97/56 L 94 02/28/18 06:00 02/28/18 06:00 02/28/18 06:00 02/28/18 06:00 02/28/18 06:00 02/27/18 02/28/18 03/01/18 05:59 05:59 05:59 Intake Total 1120 Balance 1120 MSE: Calm, coop. Affect is blunted, slightly dysphoric. Mood is "not too good. " TP linear. TC reveals no psychosis. No SI. - Time Spent With Patient Time Spent With Patient: 25" ICD10 Worksheet Patient Problems: Problems Problem Status Onset Bipolar 1 disorder Acute
[2018-03-01] MEDS ORDERED: NS 1,000 ML IV PRN (05:00)
[2018-03-01] MEDS ORDERED: ONDANSETRON DISINTEGRATING 4 MG TAB PO PRN (05:00)
[2018-03-01] MEDS ORDERED: CITRIC ACID/SODIUM CITRATE 30 ML UDCUP PO PRN (05:00)
[2018-03-01] MEDS ORDERED: CITRIC ACID/SODIUM CITRATE 30 ML UDCUP ONE (10:55)
[2018-03-01] MEDS ORDERED: ONDANSETRON DISINTEGRATING 4 MG TAB ONE (10:55)
[2018-03-01] MEDS ORDERED: fentaNYL 100 MCG/2 ML INJ ONE (11:14)
[2018-03-01] MEDS ORDERED: GLYCOPYRROLATE 0.2 MG/1 ML VIAL ONE (11:14)
[2018-03-01] MEDS ORDERED: MIDAZOLAM 2 MG/2 ML VIAL ONE (11:14)
[2018-03-01] MEDS ORDERED: SUCCINYLCHOLINE CHLORIDE 200 MG/10 ML VIAL ONE (11:15)
[2018-03-01] MEDS ORDERED: ONDANSETRON 4 MG/2 ML VIAL ONE (11:15)
[2018-03-01] MEDS ORDERED: ETOMIDATE 20 MG/10 ML VIAL ONE (11:15)
--- NOTE | 2018-03-01 11:36 | PDECTPN ---
ECT Progress Note Patient Problems: Problems Problem Status Onset Code Bipolar 1 disorder Acute F31.9 Date: 03/01/18 ECT provider: Brandon Hill Stimulus dose (%): 45 Pulse width: 0.5 ECT EMG (sec): 27 ECT EEG (sec): 46 ECT treatment type: bilateral QIDS-SR Total Score: 11 QIDS-SR Question #12 Score: 0 MMSE Total Score (Max = 21): 20 Next ECT date: 03/03/18 O/P psychiatrist follow up with Dr.: Dr. Garcia O/P psychiatrist follow up: direct communication Home medications: Medication Instructions Recorded ARIPiprazole [Abiliflucero Maintena] 400 mg IM Q21D 02/16/18 Medication review: completed Current treatment plan: acute phase Treatment plan frequency: 3 times per week ECT narrative: Pt seen for continued acute course ECT treatment. She reports continued gradual improvement in mood. Less ruminative, less worried. Sleeping well. Continues to prefer to isolate in her room. Activity and speech are normal. Affect is bright, smiling, stable, approp. Mood is "pretty good." TP is linear. TC reveals no psychosis. SI "gone". Underwent bilateral ECT without complication.
--- NOTE | 2018-03-01 11:50 | PDANEPAE ---
ANE Past Medical History - Cardiovascular History Hx Hypertension: No Hx Arrhythmias: No Hx Chest Pain: No Hx Coronary Artery / Peripheral Vascular Disease: No Hx Palpitations: No - Pulmonary History Hx Oxygen in Use at Home: No Hx Sleep Apnea: No - Neurologic History Hx Cerebrovascular Accident: No - Endocrine History Hx Diabetes: No Obesity: mild - Renal History Hx Renal Disorders: No - Liver History Hx Hepatic Disorders: No - Cancer History Hx Cancer: No - Chronic Pain History Chronic Pain: No (Frequent knee pain) - Surgical History Prior Surgeries: Tubal ligation in 1987, surgery for broken collarbone, cracked ribs, and punctured lung in "the s" ANE Review of Systems Review of Systems: ANE Patient History - Allergies Allergies/Adverse Reactions: lithium Allergy (Verified 10/05/17 21:51) - Home Medications Home Medications: ARIPiprazole [Abilify Maintena] 400 mg IM Q21D 02/16/18 [Last Taken 02/15/18] - NPO status NPO Status: no food or drink >8 hours - Anes Hx Anes Hx: no prior problems - Smoking Hx Smoking Status: Current every day smoker - Family Anes Hx Family Hx Anesthesia Complications: None. ANE Labs/Vital Signs - Labs Result Diagrams: 02/16/18 16:20 02/16/18 16:20 - Vital Signs Blood Pressure: 100/71 Heart Rate: 60 Respiratory Rate: 16 O2 Sat (%): 95 Height: 172.72 cm Weight: 73.028 kg ANE Physical Exam - Airway Mallampati Score: Class 2 Mouth exam: normal dental/mouth exam - Pulmonary Pulmonary: no respiratory distress, no rales or rhonchi, clear to auscultation - Cardiovascular Cardiovascular: regular rate and rhythym, no murmur, rub, or gallop - ASA Status ASA Status: II ANE Anesthesia Plan Anesthesia Plan: GA with mask
--- NOTE | 2018-03-01 12:00 | POSTANESTH ---
Post Anesthetic Evaluation Cardiovascular Status: Normal, Stable, Similar to Pre-Op Cond Respiratory Status: Normal, Stable, Similar to Pre-op Cond. Level of Consciousness/Mental Status: Unconscious Complications Possibly Related to Anesthesia: None Noted
--- NOTE | 2018-03-01 12:54 | ASMTCMCOM ---
CM Note CM Note Notes: Client continues to do well on the unit and with ECT treatment. Per client's primary ACT therapist: Prabha: I saw her this afternoon (today) and she thought that she still had at least another week of ECT to do while there, but she wasnt entirely sure of the plan. She did seem to be doing a little bit better though in terms of her depression and reduced SI so thats good. Current plan is for client to stay on unit through ECT TX- 03/10 and then discharge to possible Respite bed with [facility] and follow up with care team.* Date Signed: 03/01/2018 12:51 PM Electronically Signed By:Bobby Hughes
--- NOTE | 2018-03-02 12:44 | ASMTCMCOM ---
CM Note CM Note Notes: Client continues to improve with ECT tx. CC notified "Joellen," that client would be inpatient until 03/10 with plan discharge that day to Respite care, if available and out-patient team, etc.* Date Signed: 03/02/2018 12:43 PM Electronically Signed By:Bobby Hughes
--- NOTE | 2018-03-02 15:14 | SOAPPROG ---
SOAP Progress Note Assessment/Plan: Assessment: Plan: 02/21/18 16:32 Mood: Remains depressed. CCM. 02/23/18 15:41 Mood: Tolerating treatment well. CCM. 02/28/18 19:12 Mood: Slow improvement. CCM. 03/02/18 15:14 Mood: Continued improvement. CCM. Subjective: Pt seen, discussed with staff. Reports feeling "OK." Continues to prefer to isolate in her room. Appears brighter, less anxious. Compliant with all treatments. Remains anxious over d/c issues. Accepting that we are working for her to formulate a plan. Cognition remains good. Objective: Vital Signs Temp Pulse Resp BP Pulse Ox 36.8 C 86 16 82/54 L 94 03/02/18 06:00 03/02/18 06:00 03/02/18 06:00 03/02/18 06:00 03/02/18 06:00 03/01/18 03/02/18 03/03/18 05:59 05:59 05:59 Intake Total 1000 Balance 1000 MSE: Calm, coop. Affect is euthymic, stable, approp. Mood is "OK." TP linear. TC reveals no psychosis. No current SI. - Time Spent With Patient Time Spent With Patient: 15" ICD10 Worksheet Patient Problems: Problems Problem Status Onset Bipolar 1 disorder Acute
[2018-03-03] MEDS ORDERED: ONDANSETRON DISINTEGRATING 4 MG TAB PO PRN (13:29)
[2018-03-03] MEDS ORDERED: NS 1,000 ML IV PRN (13:29)
[2018-03-03] MEDS ORDERED: CITRIC ACID/SODIUM CITRATE 30 ML UDCUP PO PRN (13:29)
[2018-03-03] MEDS ORDERED: CITRIC ACID/SODIUM CITRATE 30 ML UDCUP ONE (13:34)
[2018-03-03] MEDS ORDERED: ONDANSETRON DISINTEGRATING 4 MG TAB ONE (13:34)
--- NOTE | 2018-03-03 13:58 | ASMTCMCOM ---
CM Note CM Note Notes: Pt. reports feeling "pretty good". Pt. stated she is currently waiting for ECT treatment. Pt. reports sleeping "good". Pt. stated she is eating well and attending groups. Pt. reported liking goals group. Pt. reports no issues with her current medications. Pt. discussed ECT and stated "I don't know, I'd like to say I feel a whole lot different, but I don't". Pt. denied SI, HI, AVH and paranoia. Pt. presents as alert, calm, more affect in her demeanor, good eye contact and an overall friendly demeanor. Staff report pt. sleeping 12 hours and being medication complaint. Date Signed: 03/03/2018 01:58 PM Electronically Signed By:Aleta Perez
--- NOTE | 2018-03-03 14:03 | PDANEPAE ---
ECT Pre Anesthetic Evaluation Allergies/Adverse Reactions: lithium Allergy (Verified 10/05/17 21:51) Patient ID confirmed: Yes H&P reviewed: Yes Pre-anesthetic history reviewed: Yes Heart: regular rate and rhythym Lungs: no respiratory distress Mallampati Score: Class 1 ASA Status: II Home Medications: Medication Instructions Recorded ARIPiprazole [Abiliflucero Maintena] 400 mg IM Q21D 02/16/18 Patient interviewed: Yes Patient examined: Yes Anesthetic plan discussed with patient: Yes Anesthetic risks discussed with patient: Yes ECT Pre-Anesthetic History - Height & Weight Height: 172.72 cm Weight: 73.028 kg BMI: 24.49 - Anesthesia History Hx Anesthesia Complications (with details): None. Family Hx Anesthesia Complications: None. - Medications In the Past 6 Months the Patient Has Taken: Steroids, Aspirin - Tobacco/Alcohol/Drug Use Smoking Status: Current every day smoker Total Number Of Years As A Smoker: 30 Packs Per Day: 1 Hx Drug/Substance Abuse: No Alcohol Use: No Alcohol Quantity: None. Tobacco/Alcohol/Drug Use History Comment: Pt denies any drug or alcohol use, besides cigarettes - Prior Surgeries/Hospitalizations Prior Surgeries: Tubal ligation in 1987, surgery for broken collarbone, cracked ribs, and punctured lung in "the 90s" Prior Medical Hospitalizations: Hospitalizaion for collarbone, cracked ribs, and punctured lung in "the " - Pulmonary History ECT Hx Asthma: No Hx Abnormal Chest X-Ray: No Hx Oxygen in Use at Home: No - Cardiovascular History Hx Hypertension: No Currently Uses Hypertension Medication: No Hx Arrhythmias: No Hx Palpitations: No Hx Chest Pain: No Hx Coronary Artery / Peripheral Vascular Disease: No Hx Blood Clot: No - Neurologic History Hx Cerebrovascular Accident: No Hx CT Scan Or MRI Of The Brain: No Hx Epilepsy, Convulsions, Seizures, Or Blackouts: No Hx Frequent Or Severe Headaches: No Hx Numbness: No Hx Neurologic Disorder: No - Dental History Current Dental Issues: Other Dental History Comment: Pt describes numerous fillings, unable to give exact figure. - Endocrine History Hx Diabetes: No Current Daily Insulin Injections: No Hx Thyroid Problems: No - Renal/Urologic History Hx Renal Disorders: No Hx Urinary Tract Problems: No - Liver History Hx Hepatic Disorders: No - Cancer History Hx Cancer: No - Hematology History Hx Unexplained Bleeding Of Any Type: No Hx Ease Of Bruising: No Hx Anemia: No - Gastrointestinal History Hx Gastroesophogeal Reflux Disease: No Hx Ulcers: No Hx Hiatal Hernia: No Hx Difficulty Swallowing: No - Musculoskeletal Hisory Hx Chronic Pain: Yes Chronic Pain Location: Joints Hx Arthritis: Yes Musculoskeletal History Comment: Chronic knee pain - Opthalmic History Hx Glaucoma: No Visual Assistive Devices: Glasses Hx Opthalmic Disorders: No - Other Health History Physical Disabililty: No Recent Cough, Cold, or Fever: No Significant Weight Loss In The Last 4 Months: No Possible the Patient Might be : No Other Health History Comment: Pt received Cortisone for knee inflammation on 01/25.
[2018-03-03] MEDS ORDERED: fentaNYL 100 MCG/2 ML INJ ONE (14:04)
[2018-03-03] MEDS ORDERED: MIDAZOLAM 2 MG/2 ML VIAL ONE (14:05)
[2018-03-03] MEDS ORDERED: GLYCOPYRROLATE 0.2 MG/1 ML VIAL ONE (14:05)
[2018-03-03] MEDS ORDERED: ROCURONIUM 50 MG/5 ML VIAL ONE (14:05)
[2018-03-03] MEDS ORDERED: SUCCINYLCHOLINE CHLORIDE 200 MG/10 ML VIAL ONE (14:05)
[2018-03-03] MEDS ORDERED: ETOMIDATE 20 MG/10 ML VIAL ONE (14:05)
[2018-03-03] MEDS ORDERED: ONDANSETRON 4 MG/2 ML VIAL ONE (14:05)
--- NOTE | 2018-03-03 14:09 | PDECTPN ---
ECT Progress Note Patient Problems: Problems Problem Status Onset Code Bipolar 1 disorder Acute F31.9 Date: 03/03/18 ECT provider: Brandon Hill Anesthesia: Finn Uribe Stimulus dose (%): 50 Pulse width: 0.5 ECT EMG (sec): 20 ECT EEG (sec): 51 ECT treatment type: bilateral QIDS-SR Total Score: 5 QIDS-SR Question #12 Score: 0 MMSE Total Score (Max = 21): 20 O/P psychiatrist follow up with Dr.: Dr. Garcia O/P psychiatrist follow up: direct communication Home medications: Medication Instructions Recorded ARIPiprazole [Abilify Maintena] 400 mg IM Q21D 02/16/18 Medication review: completed Current treatment plan: acute phase Treatment plan frequency: 3 times per week ECT narrative: Pt seen for continued acute course ECT treatment. She continues to report improvements in mood and anxiety. Cognition remains good. No c/o's. Activity and speech are normal. Affect is brighter, smiling, stable, approp. Mood is "pretty good." TP is linear. TC reveals no psychosis. SI "none". Underwent bilateral ECT without complication.
--- NOTE | 2018-03-04 17:59 | SOAPPROG ---
SOAP Progress Note Assessment/Plan: Assessment: Per Dr. Hill's recent note: 02/21/18 16:32 Mood: Remains depressed. CCM. 02/23/18 15:41 Mood: Tolerating treatment well. [facility]. Subjective: Pt seen, discussed with staff. Reports feeling "about the same." Tolerating treatments well. Remains generally helpless, hopeless and depressed. Offers no c/o's. Plan: 02/25/18 16:39 1. Patient reports improved mood, feels "good" today. 2. Denies any SE's from ECT. 3. Next ECT on Tuesday. 4. Patient is sleeping well and eating more. PLAN: 02/26/18 14:41 1. Well-groomed and dressed today. 2. Reports mood is "better" since starting ECT. 3. Wants help with housing situation. Recently lost housing. 4. Next ECT tomorrow. PLAN 03/04/18 17:57 1. Mood has improved, denies SI/HI. 2. Next ECT on Tuesday 3. Agrees to stay through next week to complete acute course of ECT. Subjective: Patient present calm, pleasant, improved mood. She thought she would be leaving hospital sooner, but agrees to stay through this week to complete acute course of ECT. Objective: Vital Signs Temp Pulse Resp BP Pulse Ox 36.8 C 93 16 95/60 L 90 L 03/04/18 06:00 03/04/18 06:00 03/04/18 06:00 03/04/18 06:00 03/04/18 06:00 03/03/18 03/04/18 03/05/18 05:59 05:59 05:59 Intake Total 750 Balance 750 MSE: Affect: Pleasant, euthymic Mood: "Good" TP: Linear TC: Denies any SI/HI insight/Judgment: Fair - Time Spent With Patient Time Spent With Patient: 15" - Pending Discharge Pending Discharge Within 24 Hours: No Pending Discharge Within 48 Hours: No ICD10 Worksheet Patient Problems: Problems Problem Status Onset Bipolar 1 disorder Acute
--- NOTE | 2018-03-05 19:16 | SOAPPROG ---
SOAP Progress Note Assessment/Plan: Assessment: Per Dr. Hill's recent note: 02/21/18 16:32 Mood: Remains depressed. CCM. 02/23/18 15:41 Mood: Tolerating treatment well. [facility]. Subjective: Pt seen, discussed with staff. Reports feeling "about the same." Tolerating treatments well. Remains generally helpless, hopeless and depressed. Offers no c/o's. Plan: 02/25/18 16:39 1. Patient reports improved mood, feels "good" today. 2. Denies any SE's from ECT. 3. Next ECT on Tuesday. 4. Patient is sleeping well and eating more. PLAN: 02/26/18 14:41 1. Well-groomed and dressed today. 2. Reports mood is "better" since starting ECT. 3. Wants help with housing situation. Recently lost housing. 4. Next ECT tomorrow. PLAN 03/04/18 17:57 1. Mood has improved, denies SI/HI. 2. Next ECT on Tuesday 3. Agrees to stay through next week to complete acute course of ECT. 03/05/18 19:14 1. Patient says ECT is "helping" and she feels "better" 2. Next ECT on Tuesday 3. Patient presents very apathetic, concerned about what happens after she leaves hospital 4. [facility] Subjective: Patient present flat and apathetic. She is sitting at table eating late lunch. She says she wasn't hungry earlier and "forgot" about lunch. She only went to one group today. She denies any SI. She reports ECT is "helping" but has shown more lethargy, lack of energy/motivation and less interaction with staff/peers over past several days. Objective: Vital Signs Temp Pulse Resp BP Pulse Ox 36.8 C 81 14 94/64 L 94 03/05/18 06:00 03/05/18 06:00 03/05/18 06:00 03/05/18 06:00 03/05/18 06:00 03/04/18 03/05/18 03/06/18 05:59 05:59 05:59 Intake Total 750 Balance 750 MSE: Affect: Flat Mood: "OK" TP: Linear TC: Denies any SI/HI Insight/ Judgment: Fair - Time Spent With Patient Time Spent With Patient: 15" - Pending Discharge Pending Discharge Within 24 Hours: No Pending Discharge Within 48 Hours: No ICD10 Worksheet Patient Problems: Problems Problem Status Onset Bipolar 1 disorder Acute
[2018-03-06] MEDS ORDERED: CITRIC ACID/SODIUM CITRATE 30 ML UDCUP PO PRN (04:00)
[2018-03-06] MEDS ORDERED: ONDANSETRON DISINTEGRATING 4 MG TAB PO PRN (04:00)
[2018-03-06] MEDS ORDERED: NS 1,000 ML IV PRN (04:00)
[2018-03-06] MEDS ORDERED: ONDANSETRON DISINTEGRATING 4 MG TAB ONE (13:28)
[2018-03-06] MEDS ORDERED: CITRIC ACID/SODIUM CITRATE 30 ML UDCUP ONE (13:28)
--- NOTE | 2018-03-06 14:26 | ASMTCMCOM ---
CM Note CM Note Notes: Pt. was resting in bed, waiting to get ECT, when CC approached. Pt. reports feeling "pretty good". Pt. stated she slept "good" and got a nap in. Pt. stated she is eating well and not attending groups. Pt. stated she "don't know why" when asked about not attending groups. Pt. reports she has been reading while in the hospital. Pt. reports no issues with her current medications. Pt. stated ECT is "going okay". Pt. stated she believes she has had three ECT treatments. Pt. stated she feels " a lot different" compared to when she was admitted. Pt. denied SI, HI, AVH and paranoia. Staff report pt. sleeping 12 hours and being medication compliant. Date Signed: 03/06/2018 02:25 PM Electronically Signed By:Aleta Perez
[2018-03-06] MEDS ORDERED: MIDAZOLAM 2 MG/2 ML VIAL ONE (14:43)
[2018-03-06] MEDS ORDERED: ETOMIDATE 20 MG/10 ML VIAL ONE (14:43)
[2018-03-06] MEDS ORDERED: fentaNYL 100 MCG/2 ML INJ ONE (14:43)
--- NOTE | 2018-03-06 14:54 | PDANEPAE ---
ECT Pre Anesthetic Evaluation Allergies/Adverse Reactions: lithium Allergy (Verified 10/05/17 21:51) Patient ID confirmed: Yes H&P reviewed: Yes Pre-anesthetic history reviewed: Yes Heart: regular rate and rhythym Lungs: no respiratory distress Mallampati Score: Class 1 ASA Status: II Home Medications: Medication Instructions Recorded ARIPiprazole [Abilify Maintena] 400 mg IM Q21D 02/16/18 Medication review: completed Patient interviewed: Yes Patient examined: Yes Anesthetic plan discussed with patient: Yes Anesthetic risks discussed with patient: Yes ECT Pre-Anesthetic History - Height & Weight Height: 172.72 cm Weight: 74.389 kg BMI: 24.94 - Anesthesia History Hx Anesthesia Complications (with details): None. Family Hx Anesthesia Complications: None. - Medications In the Past 6 Months the Patient Has Taken: Steroids, Aspirin - Tobacco/Alcohol/Drug Use Smoking Status: Current every day smoker Total Number Of Years As A Smoker: 30 Packs Per Day: 1 Hx Drug/Substance Abuse: No Alcohol Use: No Alcohol Quantity: None. Tobacco/Alcohol/Drug Use History Comment: Pt denies any drug or alcohol use, besides cigarettes - Prior Surgeries/Hospitalizations Prior Surgeries: Tubal ligation in 1987, surgery for broken collarbone, cracked ribs, and punctured lung in "the 90s" Prior Medical Hospitalizations: Hospitalizaion for collarbone, cracked ribs, and punctured lung in "the 90s" - Pulmonary History ECT Hx Asthma: No Hx Abnormal Chest X-Ray: No Hx Oxygen in Use at Home: No - Cardiovascular History Hx Hypertension: No Currently Uses Hypertension Medication: No Hx Arrhythmias: No Hx Palpitations: No Hx Chest Pain: No Hx Coronary Artery / Peripheral Vascular Disease: No Hx Blood Clot: No - Neurologic History Hx Cerebrovascular Accident: No Hx CT Scan Or MRI Of The Brain: No Hx Epilepsy, Convulsions, Seizures, Or Blackouts: No Hx Frequent Or Severe Headaches: No Hx Numbness: No Hx Neurologic Disorder: No - Dental History Current Dental Issues: Other Dental History Comment: Pt describes numerous fillings, unable to give exact figure. - Endocrine History Hx Diabetes: No Current Daily Insulin Injections: No Hx Thyroid Problems: No - Renal/Urologic History Hx Renal Disorders: No Hx Urinary Tract Problems: No - Liver History Hx Hepatic Disorders: No - Cancer History Hx Cancer: No - Hematology History Hx Unexplained Bleeding Of Any Type: No Hx Ease Of Bruising: No Hx Anemia: No - Gastrointestinal History Hx Gastroesophogeal Reflux Disease: No Hx Ulcers: No Hx Hiatal Hernia: No Hx Difficulty Swallowing: No - Musculoskeletal Hisory Hx Chronic Pain: Yes Chronic Pain Location: Joints Hx Arthritis: Yes Musculoskeletal History Comment: Chronic knee pain - Opthalmic History Hx Glaucoma: No Visual Assistive Devices: Glasses Hx Opthalmic Disorders: No - Other Health History Physical Disabililty: No Recent Cough, Cold, or Fever: No Significant Weight Loss In The Last 4 Months: No Possible the Patient Might be : No Other Health History Comment: Pt received Cortisone for knee inflammation on 01/25.
[2018-03-06] MEDS ORDERED: METHOHEXITAL SODIUM 100 MG/10 ML SYR IVP ONE (14:55)
--- NOTE | 2018-03-06 15:06 | PDECTPN ---
ECT Progress Note Patient Problems: Problems Problem Status Onset Code Bipolar 1 disorder Acute F31.9 Date: 03/06/18 ECT provider: Brandon Hill Anesthesia: Maribell Rojas Stimulus dose (%): 55 Pulse width: 0.5 ECT EMG (sec): 21 ECT EEG (sec): 24 ECT treatment type: bilateral QIDS-SR Total Score: 11 QIDS-SR Question #12 Score: 0 MMSE Total Score (Max = 21): 21 Next ECT date: 03/08/18 Next ECT time: 06:00 O/P psychiatrist follow up with Dr.: Dr. Garcia O/P psychiatrist follow up: direct communication Home medications: Medication Instructions Recorded ARIPiprazole [Abiliflucero Maintena] 400 mg IM Q21D 02/16/18 Medication review: completed Current treatment plan: acute phase Treatment plan frequency: 3 times per week ECT narrative: Pt seen for continued acute course ECT treatment. She continues to demonstrate objective improvements in mood and anxiety. She states she "doesn't really notice it." She does, however, admit to feeling "better." Continues to worry about discharge, mainly in re: housing. Cognition remains good. No c/o's. Activity and speech are normal. Affect is bright, smiling, stable, approp. Mood is "OK." TP is linear. TC reveals no psychosis. Does not endorse SI. Underwent bilateral ECT without complication.
--- NOTE | 2018-03-06 15:17 | POSTANESTH ---
Post Anesthetic Evaluation Cardiovascular Status: Normal, Stable, Similar to Pre-Op Cond Respiratory Status: Normal, Stable, Similar to Pre-op Cond. Level of Consciousness/Mental Status: Unconscious Pain Control: Adequate, Prn Tx Ordered Nausea/Vomiting Control: Adequate, Prn Tx Ordered Complications Possibly Related to Anesthesia: None Noted
--- NOTE | 2018-03-07 20:52 | SOAPPROG ---
SOAP Progress Note Assessment/Plan: Assessment: Plan: 02/21/18 16:32 Mood: Remains depressed. CCM. 02/23/18 15:41 Mood: Tolerating treatment well. CCM. 02/28/18 19:12 Mood: Slow improvement. CCM. 03/02/18 15:14 Mood: Continued improvement. CCM. 03/07/18 20:52 Mood: Doing well. Clear objective improvement iwth ECT. Subjective: Pt seen, discussed with staff. Bright and smiling on interview. Discussed course of treatment and she is accepting of possible 12 treatment acute course. SHe continues to state she doesn't feel better than when she started treatment. Compliant with treatment. Attending groups more often. Objective: Vital Signs Temp Pulse Resp BP Pulse Ox 36.7 C 87 14 92/58 L 95 03/07/18 06:00 03/07/18 06:00 03/07/18 06:00 03/07/18 06:00 03/07/18 06:00 03/06/18 03/07/18 03/08/18 05:59 05:59 05:59 Intake Total 600 Balance 600 MSE: Calm, coop. Affect is bright, smiling, approp, stable. Mood is "about the same." TP is linear. TC reveals mild paranoia. Denies AH's. No SI/HI/. - Time Spent With Patient Time Spent With Patient: 15" ICD10 Worksheet Patient Problems: Problems Problem Status Onset Bipolar 1 disorder Acute
[2018-03-08] MEDS ORDERED: CITRIC ACID/SODIUM CITRATE 30 ML UDCUP PO PRN (05:00)
[2018-03-08] MEDS ORDERED: ONDANSETRON DISINTEGRATING 4 MG TAB PO PRN (05:00)
[2018-03-08] MEDS ORDERED: NS 1,000 ML IV PRN (05:00)
[2018-03-08] MEDS ORDERED: LIDOCAINE 2% 5 ML SDV ONE ×2 (05:26)
[2018-03-08] MEDS ORDERED: ONDANSETRON DISINTEGRATING 4 MG TAB ONE (05:49)
[2018-03-08] MEDS ORDERED: CITRIC ACID/SODIUM CITRATE 30 ML UDCUP ONE (05:49)
[2018-03-08] MEDS ORDERED: MIDAZOLAM 2 MG/2 ML VIAL ONE (06:21)
[2018-03-08] MEDS ORDERED: ROCURONIUM 50 MG/5 ML VIAL ONE (06:21)
[2018-03-08] MEDS ORDERED: fentaNYL 100 MCG/2 ML INJ ONE (06:21)
[2018-03-08] MEDS ORDERED: SUCCINYLCHOLINE CHLORIDE 200 MG/10 ML VIAL ONE (06:22)
[2018-03-08] MEDS ORDERED: METHOHEXITAL SODIUM 100 MG/10 ML SYR IVP ONE (06:22)
[2018-03-08] MEDS ORDERED: KETOROLAC 30 MG/1 ML SDV ONE (06:23)
[2018-03-08] MEDS ORDERED: ONDANSETRON 4 MG/2 ML VIAL ONE (06:23)
[2018-03-08] MEDS ORDERED: GLYCOPYRROLATE 0.2 MG/1 ML VIAL ONE (06:23)
--- NOTE | 2018-03-08 06:31 | PDECTPN ---
ECT Progress Note Patient Problems: Problems Problem Status Onset Code Bipolar 1 disorder Acute F31.9 Date: 03/08/18 ECT provider: Brandon Hill Anesthesia: Maribell Rojas Stimulus dose (%): 60 Pulse width: 0.5 ECT EMG (sec): 27 ECT EEG (sec): 54 ECT treatment type: bilateral QIDS-SR Total Score: 5 QIDS-SR Question #12 Score: 0 MMSE Total Score (Max = 21): 19 Next ECT date: 03/10/18 Next ECT time: 07:30 O/P psychiatrist follow up with Dr.: Dr. Garcia O/P psychiatrist follow up: direct communication Home medications: Medication Instructions Recorded ARIPiprazole [Abiliflucero Maintena] 400 mg IM Q21D 02/16/18 Medication review: completed Current treatment plan: acute phase Treatment plan frequency: 3 times per week ECT narrative: Pt seen for continued acute course ECT treatment. She reports feeling "tired" most of yesterday. States, "I spent the whole day in bed but I don't think I slept." Continues to appear bright, though prefers to isolate. Attends some groups. Activity and speech are normal. Affect is slightly blunted, smiling, stable, approp. Mood is "tired." TP is linear. TC reveals no psychosis. Does not endorse SI. Underwent bilateral ECT without complication. Good improvement over initial presentation. May be flattening a bit. Will CCM , monitor.
--- NOTE | 2018-03-08 06:39 | PDANEPAE ---
ECT Pre Anesthetic Evaluation Allergies/Adverse Reactions: lithium Allergy (Verified 10/05/17 21:51) Patient ID confirmed: Yes H&P reviewed: Yes Pre-anesthetic history reviewed: Yes Heart: regular rate and rhythym Lungs: no respiratory distress Mallampati Score: Class 1 ASA Status: I, II Home Medications: Medication Instructions Recorded ARIPiprazole [Abiliflucero Maintena] 400 mg IM Q21D 02/16/18 Medication review: completed Patient interviewed: Yes Patient examined: Yes Anesthetic plan discussed with patient: Yes Anesthetic risks discussed with patient: Yes ECT Pre-Anesthetic History - Height & Weight Height: 172.72 cm Weight: 74.389 kg BMI: 24.94 - Anesthesia History Hx Anesthesia Complications (with details): None. Family Hx Anesthesia Complications: None. - Medications In the Past 6 Months the Patient Has Taken: Steroids, Aspirin - Tobacco/Alcohol/Drug Use Smoking Status: Current every day smoker Total Number Of Years As A Smoker: 30 Packs Per Day: 1 Hx Drug/Substance Abuse: No Alcohol Use: No Alcohol Quantity: None. Tobacco/Alcohol/Drug Use History Comment: Pt denies any drug or alcohol use, besides cigarettes - Prior Surgeries/Hospitalizations Prior Surgeries: Tubal ligation in 1987, surgery for broken collarbone, cracked ribs, and punctured lung in "the 90s" Prior Medical Hospitalizations: Hospitalizaion for collarbone, cracked ribs, and punctured lung in "the 90s" - Pulmonary History ECT Hx Asthma: No Hx Abnormal Chest X-Ray: No Hx Oxygen in Use at Home: No - Cardiovascular History Hx Hypertension: No Currently Uses Hypertension Medication: No Hx Arrhythmias: No Hx Palpitations: No Hx Chest Pain: No Hx Coronary Artery / Peripheral Vascular Disease: No Hx Blood Clot: No - Neurologic History Hx Cerebrovascular Accident: No Hx CT Scan Or MRI Of The Brain: No Hx Epilepsy, Convulsions, Seizures, Or Blackouts: No Hx Frequent Or Severe Headaches: No Hx Numbness: No Hx Neurologic Disorder: No - Dental History Current Dental Issues: Other Dental History Comment: Pt describes numerous fillings, unable to give exact figure. - Endocrine History Hx Diabetes: No Current Daily Insulin Injections: No Hx Thyroid Problems: No - Renal/Urologic History Hx Renal Disorders: No Hx Urinary Tract Problems: No - Liver History Hx Hepatic Disorders: No - Cancer History Hx Cancer: No - Hematology History Hx Unexplained Bleeding Of Any Type: No Hx Ease Of Bruising: No Hx Anemia: No - Gastrointestinal History Hx Gastroesophogeal Reflux Disease: No Hx Ulcers: No Hx Hiatal Hernia: No Hx Difficulty Swallowing: No - Musculoskeletal Hisory Hx Chronic Pain: Yes Chronic Pain Location: Joints Hx Arthritis: Yes Musculoskeletal History Comment: Chronic knee pain - Opthalmic History Hx Glaucoma: No Visual Assistive Devices: Glasses Hx Opthalmic Disorders: No - Other Health History Physical Disabililty: No Recent Cough, Cold, or Fever: No Significant Weight Loss In The Last 4 Months: No Possible the Patient Might be : No Other Health History Comment: Pt received Cortisone for knee inflammation on 01/25.
--- NOTE | 2018-03-08 11:20 | ASMTCMCOM ---
CM Note CM Note Notes: Client continues to do better than previous days, was treated with ECT and remains sleeping in her room for most of the shift. Client discharge plan has moved to possible Tuesday of next week, per provider.* Date Signed: 03/08/2018 11:20 AM Electronically Signed By:Bobby Hughes
--- NOTE | 2018-03-09 11:49 | ASMTCMCOM ---
CM Note CM Note Notes: The patient is reportedly attending and participating in groups. She reported that she plans to discharge on 03/17/18 to respite care with [facility]. The patient reported feeling hopeful, although she also expressed frustration with having lost housing in the first place. The patient did not elaborate.She endorsed having some anxiety about navigating housing services upon discharge. She reported that she is "unsure" whether she is continuing to benefit from ECT treatment. The patient recalled feeling much better initially and having significantly decreased negative thinking. Date Signed: 03/09/2018 11:48 AM Electronically Signed By:Lacey Cruz
--- NOTE | 2018-03-09 20:42 | SOAPPROG ---
SOAP Progress Note Assessment/Plan: Assessment: Plan: 02/21/18 16:32 Mood: Remains depressed. CCM. 02/23/18 15:41 Mood: Tolerating treatment well. CCM. 02/28/18 19:12 Mood: Slow improvement. CCM. 03/02/18 15:14 Mood: Continued improvement. CCM. 03/07/18 20:52 Mood: Doing well. Clear objective improvement iwth ECT. 03/09/18 20:42 Mood: Continued gradual improvement. CCM. Subjective: Pt seen, discussed with staff. Reports feeling "OK." Continues to isolate, voices doubt about progress of treatment and anxiety about d/c. Compliant with therapies. Cognition stable. Objective: Vital Signs Temp Pulse Resp BP Pulse Ox 36.7 C 80 16 100/59 L 93 03/09/18 06:00 03/09/18 06:00 03/09/18 06:00 03/09/18 06:00 03/09/18 06:00 03/08/18 03/09/18 03/10/18 05:59 05:59 05:59 Intake Total 900 Balance 900 MSE: Calm, coop. Affect is blunted, stable, smiles at times. Mood is "OK." TP is linear. TC reveals no overt psychosis. No SI/HI/. - Time Spent With Patient Time Spent With Patient: 15" ICD10 Worksheet Patient Problems: Problems Problem Status Onset Bipolar 1 disorder Acute
[2018-03-10] MEDS ORDERED: NS 1,000 ML IV PRN (04:00)
[2018-03-10] MEDS ORDERED: CITRIC ACID/SODIUM CITRATE 30 ML UDCUP PO PRN (04:00)
[2018-03-10] MEDS ORDERED: ONDANSETRON DISINTEGRATING 4 MG TAB PO PRN (04:00)
[2018-03-10] MEDS ORDERED: ONDANSETRON DISINTEGRATING 4 MG TAB ONE (07:11)
[2018-03-10] MEDS ORDERED: CITRIC ACID/SODIUM CITRATE 30 ML UDCUP ONE (07:11)
[2018-03-10] MEDS ORDERED: MIDAZOLAM 2 MG/2 ML VIAL ONE (07:37)
[2018-03-10] MEDS ORDERED: fentaNYL 100 MCG/2 ML INJ ONE (07:37)
[2018-03-10] MEDS ORDERED: METHOHEXITAL SODIUM 100 MG/10 ML SYR IVP ONE (07:37)
--- NOTE | 2018-03-10 07:55 | PDECTPN ---
ECT Progress Note Patient Problems: Problems Problem Status Onset Code Bipolar 1 disorder Acute F31.9 Date: 03/10/18 ECT provider: Brandon Hill Anesthesia: Maribell Rojas Stimulus dose (%): 65 Pulse width: 0.5 ECT EMG (sec): 46 ECT EEG (sec): 57 ECT treatment type: bilateral QIDS-SR Total Score: 1 QIDS-SR Question #12 Score: 0 MMSE Total Score (Max = 21): 20 Next ECT date: 03/13/18 O/P psychiatrist follow up with Dr.: Dr. Garcia O/P psychiatrist follow up: direct communication Home medications: Medication Instructions Recorded ARIPiprazole [Abiliflucero Maintena] 400 mg IM Q21D 02/16/18 Current treatment plan: acute phase Treatment plan frequency: 3 times per week ECT narrative: Pt seen for continued acute course ECT treatment. She reports "no change" but continues to appear brighter to staff. She is agreeable to plan to stay through the end of the acute course and d/c to respite. Activity and speech are normal. Affect remains slightly blunted, smiling, stable, approp. Mood is "OK." TP is linear. TC reveals no psychosis. Does not endorse SI. Underwent bilateral ECT without complication. Continued gradual improvement. Will CCM, monitor.
--- NOTE | 2018-03-11 13:52 | ASMTCMCOM ---
CM Note CM Note Notes: Pt. was laying in bed looking out the window when CC approached. Pt. reports feeling "Okay". Pt. stated she slept "good" and is eating "okay", adding her appetite is better. Pt. reports getting ECT on Tuesday and "guess it's going okay". Pt. stated she "feels okay" compared to her feelings at admission. Pt. then stated "don't feel any different". Pt. was unsure what her discharge plan is and how many more ECT treatments she will need. Pt. reports attending a couple of groups, adding they are a "good distraction". Pt. stated she was "takeing a break from my boook". Pt.denied SI, HI, AVH and paranoia. Pt. presents as alert, most calm but a bit nervous at times, cooperative, fair eye contact, and with a slight smile. Staff report pt. sleeping 9.5 hours and being medication compliant. Date Signed: 03/11/2018 01:51 PM Electronically Signed By:Aleta Perez
--- NOTE | 2018-03-11 17:04 | SOAPPROG ---
SOAP Progress Note Assessment/Plan: Assessment: Per Dr. Hill's recent note: 03/07/18 20:52 Mood: Doing well. Clear objective improvement iwth ECT. 03/09/18 20:42 Mood: Continued gradual improvement. CCM. Subjective: Pt seen, discussed with staff. Reports feeling "OK." Continues to isolate, voices doubt about progress of treatment and anxiety about d/c. Compliant with therapies. Cognition stable. Objective: PLAN: 03/11/18 17:01 1. Patient is less present in milieu, spending more time isolating in room. 2. Has been going off ground which seems to boost her spirits. 3. She slept 9.5 hrs last night and ate 100% of meals today. 4. Plan to continue with ECT this week. Subjective: Patient is not as visible on unit as last weekend. She is staying in her room most of the day. Her appetite and sleep are "good." She ate 100% of meals today. She admits to anxiety and worry about what will happen after discharge. She doesn't currently have a place to live or a job. Objective: Vital Signs Temp Pulse Resp BP Pulse Ox 36.7 C 74 14 97/68 L 93 03/11/18 06:00 03/11/18 06:00 03/11/18 06:00 03/11/18 06:00 03/11/18 06:00 03/10/18 03/11/18 03/12/18 05:59 05:59 05:59 Intake Total 945 Balance 945 MSE: Affect: Flat Mood: "OK" TP: Linear TC: Denies SI/HI Insight/Judgment: Improving - Time Spent With Patient Time Spent With Patient: 15" - Pending Discharge Pending Discharge Within 24 Hours: No Pending Discharge Within 48 Hours: No ICD10 Worksheet Patient Problems: Problems Problem Status Onset Bipolar 1 disorder Acute
--- NOTE | 2018-03-12 16:00 | SOAPPROG ---
SOAP Progress Note Assessment/Plan: Assessment: Per Dr. Hill's recent note: 03/07/18 20:52 Mood: Doing well. Clear objective improvement iwth ECT. 03/09/18 20:42 Mood: Continued gradual improvement. CCM. Subjective: Pt seen, discussed with staff. Reports feeling "OK." Continues to isolate, voices doubt about progress of treatment and anxiety about d/c. Compliant with therapies. Cognition stable. Objective: PLAN: 03/11/18 17:01 1. Patient is less present in milieu, spending more time isolating in room. 2. Has been going off ground which seems to boost her spirits. 3. She slept 9.5 hrs last night and ate 100% of meals today. 4. Plan to continue with ECT this week. PLAN: 03/12/18 15:57 1. Anxious about where she'll live after d/c. It's possible [facility] will have respite bed available at end of this week. 2. Continue with ECT. Subjective: Patient's mood is brighter today. She reports feeling "anxious" about where she' ll live after discharge. Patient slept 6.5 hrs and ate > 75% of meals. She denies any SI/HI. Objective: Vital Signs Temp Pulse Resp BP Pulse Ox 36.4 C 66 16 104/67 97 03/12/18 06:00 03/12/18 06:00 03/12/18 06:00 03/12/18 06:00 03/12/18 06:00 03/11/18 03/12/18 03/13/18 05:59 05:59 05:59 Intake Total 945 Balance 945 MSE: Affect: Brighter Mood: "Good" TP: Linear, goal-directed TC: Denies any SI/HI Insight/Judgment: Fair - Time Spent With Patient Time Spent With Patient: 15" - Pending Discharge Pending Discharge Within 24 Hours: No Pending Discharge Within 48 Hours: No ICD10 Worksheet Patient Problems: Problems Problem Status Onset Bipolar 1 disorder Acute
[2018-03-13] MEDS ORDERED: ONDANSETRON DISINTEGRATING 4 MG TAB ONE (06:20)
[2018-03-13] MEDS ORDERED: CITRIC ACID/SODIUM CITRATE 30 ML UDCUP ONE (06:20)
[2018-03-13] MEDS ORDERED: MIDAZOLAM 2 MG/2 ML VIAL ONE (06:32)
[2018-03-13] MEDS ORDERED: KETOROLAC 30 MG/1 ML SDV ONE (06:33)
[2018-03-13] MEDS ORDERED: ROCURONIUM 50 MG/5 ML VIAL ONE (06:33)
[2018-03-13] MEDS ORDERED: GLYCOPYRROLATE 0.2 MG/1 ML VIAL ONE (06:33)
[2018-03-13] MEDS ORDERED: fentaNYL 100 MCG/2 ML INJ ONE (06:33)
[2018-03-13] MEDS ORDERED: ONDANSETRON 4 MG/2 ML VIAL ONE (06:33)
[2018-03-13] MEDS ORDERED: SUCCINYLCHOLINE CHLORIDE 200 MG/10 ML VIAL ONE (06:33)
[2018-03-13] MEDS ORDERED: METHOHEXITAL SODIUM 100 MG/10 ML SYR IVP ONE (06:34)
[2018-03-13] MEDS ORDERED: NS 1,000 ML IV PRN (06:58)
[2018-03-13] MEDS ORDERED: ONDANSETRON DISINTEGRATING 4 MG TAB PO PRN (06:58)
[2018-03-13] MEDS ORDERED: CITRIC ACID/SODIUM CITRATE 30 ML UDCUP PO PRN (06:58)
--- NOTE | 2018-03-13 07:06 | PDECTPN ---
ECT Progress Note Patient Problems: Problems Problem Status Onset Code Bipolar 1 disorder Acute F31.9 Date: 03/13/18 Treatment#: 10 ECT provider: James Leslie Anesthesia: Finn Nadeemflorencia Stimulus dose (%): 70 Pulse width: 0.5 ECT EMG (sec): 28 ECT EEG (sec): 49 ECT treatment type: bilateral QIDS-SR Total Score: 13 QIDS-SR Question #12 Score: 0 MMSE Total Score (Max = 21): 18 Next ECT date: 03/15/18 Next ECT time: 07:00 O/P psychiatrist follow up with Dr.: Dr. Garcia O/P psychiatrist follow up: direct communication Home medications: Medication Instructions Recorded ARIPiprazole [Abiliflucero Maintena] 400 mg IM Q21D 02/16/18 Current treatment plan: acute phase Treatment plan frequency: 3 times per week ECT narrative: Met and interviewed pt. Reviewed Dr Owens initial consult and further MD and RN notes. Pt is s/p ECT #9 prior to today, and has a QIDS of 13/0, down from starting score of 24/1. She acknowledges feeling less depressed than before, but seems unsure. When asked about not recalling how exactly she felt prior to starting, she acknowledged not clearly remembering or connecting with that. Affect is constricted but able to [place] out a smile. Still endorsing some vegatative symptoms of depression. PMR, monotone speech, bradyphrenic,
[2018-03-14] MEDS ORDERED: ARIPIPRAZOLE (ABILIFY MAINTENA) 400 MG VIAL IM ONE (11:18)
--- NOTE | 2018-03-14 11:24 | SOAPPROG ---
SOAP Progress Note Assessment/Plan: Assessment: Bipolar I, depressed (treatment resistant) Plan: Pt interviewed while she was lying in bed, awake. Does not appear distressed or anxious, but a bit perplexed. She is A and Ox2 with poor insight into her status and how she has improved over the course of ECT (common with the Tx, its amnestic effects, and c/w state dependent memory issues). She is aware of WHY she needed the ECT. She did wish to know when she is "going to be done with it ". Feels less despondent and hopeless. No active SI. Yet, a bit abulic, apathetic and anhedonic, c/w likely BOTH ECT SEs,, AND residual depression. Will give IM Abilify Maintaina today. "Organic" labs non contributory 03/14/18 11:19 03/14/18 11:24 Objective: Vital Signs Temp Pulse Resp BP Pulse Ox 36.4 C 60 14 92/56 L 92 03/14/18 06:00 03/14/18 06:00 03/14/18 06:00 03/14/18 06:00 03/14/18 06:00 03/13/18 03/14/18 03/15/18 05:59 05:59 05:59 Intake Total 1070 Balance 1070 Laboratory Tests 03/13/18 03/13/18 05:30 05:30 C-React Prot High Sens 2.3 25-OH Vitamin D Total 40.5 TSH 2.500 ICD10 Worksheet Patient Problems: Problems Problem Status Onset Bipolar 1 disorder Acute
[2018-03-15] MEDS ORDERED: ONDANSETRON DISINTEGRATING 4 MG TAB ONE ×2 (06:31→08:01)
[2018-03-15] MEDS ORDERED: CITRIC ACID/SODIUM CITRATE 30 ML UDCUP ONE ×2 (06:31→08:01)
[2018-03-15] MEDS ORDERED: fentaNYL 100 MCG/2 ML INJ ONE (06:57)
[2018-03-15] MEDS ORDERED: GLYCOPYRROLATE 0.2 MG/1 ML VIAL ONE (06:58)
[2018-03-15] MEDS ORDERED: KETOROLAC 30 MG/1 ML SDV ONE (06:58)
[2018-03-15] MEDS ORDERED: ROCURONIUM 50 MG/5 ML VIAL ONE (06:58)
[2018-03-15] MEDS ORDERED: MIDAZOLAM 2 MG/2 ML VIAL ONE (06:58)
[2018-03-15] MEDS ORDERED: SUCCINYLCHOLINE CHLORIDE 200 MG/10 ML VIAL ONE (06:58)
[2018-03-15] MEDS ORDERED: ONDANSETRON 4 MG/2 ML VIAL ONE (06:58)
[2018-03-15] MEDS ORDERED: METHOHEXITAL SODIUM 100 MG/10 ML SYR IVP ONE (06:58)
[2018-03-15] MEDS ORDERED: ONDANSETRON DISINTEGRATING 4 MG TAB PO PRN (07:20)
[2018-03-15] MEDS ORDERED: CITRIC ACID/SODIUM CITRATE 30 ML UDCUP PO PRN (07:20)
[2018-03-15] MEDS ORDERED: NS 1,000 ML IV PRN (07:20)
--- NOTE | 2018-03-15 07:28 | PDECTPN ---
ECT Progress Note Patient Problems: Problems Problem Status Onset Code Bipolar 1 disorder Acute F31.9 Date: 03/15/18 Treatment#: 11 ECT provider: James Leslie Anesthesia: Finn Nadeemflorencia Stimulus dose (%): 75 Pulse width: 0.5 ECT EMG (sec): 29 ECT EEG (sec): 45 QIDS-SR Total Score: 11 QIDS-SR Question #12 Score: 0 MMSE Total Score (Max = 21): 20 Next ECT date: 03/17/18 Next ECT time: 07:30 O/P psychiatrist follow up with Dr.: Dr. Garcia O/P psychiatrist follow up: direct communication Home medications: Medication Instructions Recorded ARIPiprazole [Abilify Maintena] 400 mg IM Q21D 02/16/18 Current treatment plan: acute phase Treatment plan frequency: 3 times per week ECT narrative: Met and interviewed pt. Reviewed Dr Owens initial consult and further MD and RN notes. Pt is s/p ECT #9 prior to today, and has a QIDS of 13/0, down from starting score of 24/1. She acknowledges feeling less depressed than before, but seems unsure. When asked about not recalling how exactly she felt prior to starting, she acknowledged not clearly remembering or connecting with that. Affect is constricted but able to [place] out a smile. Still endorsing some vegatative symptoms of depression. PMR, monotone speech, bradyphrenic, 03/15 Pt remains quiet, slightly perplexed in affect, aware of cognitive deficits which are apparent in the form of anterograde amnesia and, perhaps, some of the abulila. No signs of [place] delirium. No SE with meds. Plan to Tx through at least Tuesday then dispo to respite bed at [facility].
[2018-03-15] MEDS ORDERED: NALOXONE HCL 0.4 MG/ML INJ IVP PRN (07:42)
[2018-03-15] MEDS ORDERED: HYDROCODONE/APAP 5/325 TAB PO PRN (07:42)
--- NOTE | 2018-03-15 11:37 | ASMTBHDC ---
Notes Note: Notes: CC confirmed client discharge follow up: Follow up with: [facility] [address], [facility] Waynefei Nigel, ACT therapist, 03/24/18 @ 12 noon [address] [facility] [id number] Dr. Ericka Garcia, psychiatrist, 03/24/18 at 11:30 a.m., check in at 11:15 a.m., same address as above. Client to report to [facility], for respite entry. Azucena will also see her some time earlier next week at location TBD, maybe respite, maybe elsewhere. Shes ACT, so there will be two contacts/week, plus the daily case mgt and nuclear weapons specialist contact shell have beginning Tuesday at respite: conservation science teacher Sat will be Woody Be. Date Signed: 03/15/2018 11:36 AM Electronically Signed By:Bobby Hughes
--- NOTE | 2018-03-16 15:34 | SOAPPROG ---
SOAP Progress Note Assessment/Plan: Assessment: Bipolar I, depressed (treatment resistant) Plan: Pt interviewed while she was lying in bed, awake. Does not appear distressed or anxious, but a bit perplexed. She is A and Ox2 with poor insight into her status and how she has improved over the course of ECT (common with the Tx, its amnestic effects, and c/w state dependent memory issues). She is aware of WHY she needed the ECT. She did wish to know when she is "going to be done with it ". Feels less despondent and hopeless. No active SI. Yet, a bit abulic, apathetic and anhedonic, c/w likely BOTH ECT SEs,, AND residual depression. Will give IM Abilify Maintaina today. "Organic" labs non contributory 03/14/18 11:19 03/14/18 11:24 03/16/18 15:28 Pt interviewed, staff input received, spoke with PAMELLA Rosales about dispo and communicated with Dr Hill about pt cognitive status by text. Left VM with Dr Mcdonnell to provide information. Pt seen in room, lying in bed, awake at 830 am. A and O times 2, not certain of day or date, but oriented to person, place, month, season and reason she is in hospital and treament she is receiving for it. Affect is constricted, pleasant, able to smile, feels "ok", little recollection of her pre ECT mood status but appreciates it was worse than today. No [place] delirium noted, although she is reportedly confused for a few hours after each of the last treatments, c/w post ECT delirium. She is near end of acute course, and this confusional symptoms will rapidly resolve. The abulic state, however, does render the patient more difficult to assess for mood effect. I will plan to assess both mood and cognition pre ECT tomorrow and hold off if confusion is lingering or MMSE reveals more overt deficits. Vitals are stable. She will transition to respite bed though [facility] but not until sometime next week. Objective: Vital Signs Temp Pulse Resp BP Pulse Ox 36.7 C 88 16 99/65 L 94 03/16/18 06:00 03/16/18 06:00 03/16/18 06:00 03/16/18 06:00 03/16/18 06:00 03/15/18 03/16/18 03/17/18 05:59 05:59 05:59 Intake Total 1000 Balance 1000 ICD10 Worksheet Patient Problems: Problems Problem Status Onset Bipolar 1 disorder Acute
[2018-03-17] MEDS ORDERED: LIDOCAINE 2% 5 ML SDV ONE (06:00)
[2018-03-17] MEDS ORDERED: SUCCINYLCHOLINE CHLORIDE 200 MG/10 ML VIAL ONE (07:30)
[2018-03-17] MEDS ORDERED: ROCURONIUM 50 MG/5 ML VIAL ONE (07:30)
[2018-03-17] MEDS ORDERED: GLYCOPYRROLATE 0.2 MG/1 ML VIAL ONE (07:30)
[2018-03-17] MEDS ORDERED: fentaNYL 100 MCG/2 ML INJ ONE (07:30)
[2018-03-17] MEDS ORDERED: KETOROLAC 30 MG/1 ML SDV ONE (07:31)
[2018-03-17] MEDS ORDERED: MIDAZOLAM 2 MG/2 ML VIAL ONE (07:31)
[2018-03-17] MEDS ORDERED: METHOHEXITAL SODIUM 100 MG/10 ML SYR IVP ONE (07:31)
[2018-03-17] MEDS ORDERED: ONDANSETRON 4 MG/2 ML VIAL ONE (07:31)
--- NOTE | 2018-03-17 07:56 | SOAPPROG ---
SOAP Progress Note Assessment/Plan: Assessment: Bipolar I, depressed (treatment resistant) Plan: Pt interviewed while she was lying in bed, awake. Does not appear distressed or anxious, but a bit perplexed. She is A and Ox2 with poor insight into her status and how she has improved over the course of ECT (common with the Tx, its amnestic effects, and c/w state dependent memory issues). She is aware of WHY she needed the ECT. She did wish to know when she is "going to be done with it ". Feels less despondent and hopeless. No active SI. Yet, a bit abulic, apathetic and anhedonic, c/w likely BOTH ECT SEs,, AND residual depression. Will give IM Abilify Maintaina today. "Organic" labs non contributory 03/14/18 11:19 03/14/18 11:24 03/16/18 15:28 Pt interviewed, staff input received, spoke with PAMELLA Rosales about dispo and communicated with Dr Hill about pt cognitive status by text. Left VM with Dr Mcdonnell to provide information. Pt seen in room, lying in bed, awake at 830 am. A and O times 2, not certain of day or date, but oriented to person, place, month, season and reason she is in hospital and treament she is receiving for it. Affect is constricted, pleasant, able to smile, feels "ok", little recollection of her pre ECT mood status but appreciates it was worse than today. No [place] delirium noted, although she is reportedly confused for a few hours after each of the last treatments, c/w post ECT delirium. She is near end of acute course, and this confusional symptoms will rapidly resolve. The abulic state, however, does render the patient more difficult to assess for mood effect. I will plan to assess both mood and cognition pre ECT tomorrow and hold off if confusion is lingering or MMSE reveals more overt deficits. Vitals are stable. She will transition to respite bed though [facility] but not until sometime next week. 03/17/18 07:49 Pt scored a 10/21 last evening on abbreviated MMSE and a 13/21 this AM. She lost points of recall and spelling HOUSE backwards, reflecting problems with working memory/attention. She is aware of her surroundings, calm, pleasant, and cooperative. Mood is still improved. So, we will NOT do ECT this am to allow her low grade confusional state to clear and let Dr Hill assess for Tuesday whether to do one last acute Tx then. Spoke yesterday to Dr Ericka Mcdonnell re patient status as a therapist from [facility] had evaluated pt and seen her looking quite confused (this was likely right after ECT). I reassured her that ECT related delirium or STM/attentional deficits are inevitably quickly resolving soon after terminating acute ECT. She reassured me that [facility] ACT team is very motivated to transition this patient seamlessly into their care and even help find her housing. Objective: Vital Signs Temp Pulse Resp BP Pulse Ox 36.4 C 70 18 105/68 98 03/17/18 07:09 03/17/18 07:09 03/17/18 07:09 03/17/18 07:09 03/17/18 07:09 03/16/18 03/17/18 03/18/18 05:59 05:59 05:59 Intake Total 1000 Balance 1000 Laboratory Tests 03/13/18 03/13/18 05:30 05:30 C-React Prot High Sens 2.3 Vitamin B12 506 25-OH Vitamin D Total 40.5 TSH 2.500 ICD10 Worksheet Patient Problems: Problems Problem Status Onset Bipolar 1 disorder Acute
--- NOTE | 2018-03-17 12:25 | ASMTCMCOM ---
CM Note CM Note Notes: Pt. was laying in bed when CC approached. Pt. reports feeling "Fine, just resting". Pt. stated she slept "good". Pt. reports eating well and not attending groups. Pt. report no issues with her current medications. Pt. did not receive ECT today, pt stated it was because "they wanted to give me a day off". Pt. stated "feels different, feels okay" about ECT. Pt. denied SI, HI, AVH and paranoia. Pt. stated once she discharges she wants to stay in the [facility]. Pt. presents as sleepy, calm, friendly, fair eye contact, and a bit confused. Staff report pt. sleeping 10 hours and being medication compliant. Date Signed: 03/17/2018 12:23 PM Electronically Signed By:Aleta Perez
--- NOTE | 2018-03-18 16:56 | SOAPPROG ---
[facility] Progress Note Assessment/Plan: Assessment: Per Dr. Leslie's note: 03/17/18 07:49 Pt scored a 10/21 last evening on abbreviated MMSE and a 13/21 this AM. She lost points of recall and spelling HOUSE backwards, reflecting problems with working memory/attention. She is aware of her surroundings, calm, pleasant, and cooperative. Mood is still improved. So, we will NOT do ECT this am to allow her low grade confusional state to clear and let Dr Hill assess for Tuesday whether to do one last acute Tx then. Spoke yesterday to Dr Ericka Garcia re patient status as a therapist [place] [facility] [place] pt and seen her looking quite confused (this was likely right after ECT). I reassured her that ECT related delirium or STM/attentional deficits are inevitably quickly resolving soon after terminating acute ECT. She reassured me that [facility] ACT team is very motivated to transition this patient seamlessly into their care and even help find her housing. PLAN: 03/18/18 16:52 1. Patient is more coherent and alert today. She is AOx4. 2. Next ECT on Tuesday 3. CCM Subjective: Patient was confused and disorganized on Tuesday. Today, she is more alert and coherent. She is alert and oriented to person, place, time and situation. She slept 11.5 hrs last night and ate 80% of breakfast this AM. She denies any SI/ HI. Objective: Vital Signs Temp Pulse Resp BP Pulse Ox 36.5 C 82 16 97/65 L 96 03/18/18 06:00 03/18/18 06:00 03/18/18 06:00 03/18/18 06:00 03/18/18 06:00 MSE: Affect: Flat Mood: "OK" TP: Linear, more coherent and organized TC: Denies any SI/HI Insight/Judgment: Fair - Time Spent With Patient Time Spent With Patient: 15" - Pending Discharge Pending Discharge Within 24 Hours: No Pending Discharge Within 48 Hours: No ICD10 Worksheet Patient Problems: Problems Problem Status Onset Bipolar 1 disorder Acute
--- NOTE | 2018-03-19 16:08 | SOAPPROG ---
[facility] Progress Note Assessment/Plan: Assessment: Per Dr. Leslie's note: 03/17/18 07:49 Pt scored a 10/21 last evening on abbreviated MMSE and a 13/21 this AM. She lost points of recall and spelling HOUSE backwards, reflecting problems with working memory/attention. She is aware of her surroundings, calm, pleasant, and cooperative. Mood is still improved. So, we will NOT do ECT this am to allow her low grade confusional state to clear and let Dr Hill assess for Tuesday whether to do one last acute Tx then. Spoke yesterday to Dr Ericka Garcia re patient status as a therapist from [facility] had evaluated pt and seen her looking quite confused (this was likely right after ECT). I reassured her that ECT related delirium or STM/attentional deficits are inevitably quickly resolving soon after terminating acute ECT. She reassured me that [facility] ACT team is very motivated to transition this patient seamlessly into their care and even help find her housing. PLAN: 03/18/18 16:52 1. Patient is more coherent and alert today. She is AOx4. 2. Next ECT on Tuesday 3. CCM 03/19/18 16:05 1. No change from yesterday. 2. Continues to present AOx4. 3. Scheduled for ECT tomorrow. Subjective: Patient is more tired and isolative today. She stayed in her room for most of the day. She came out to eat with peers and was present in milieu briefly watching TV. however, she did not attend groups and slept 10 hrs last night and this AM. Objective: Vital Signs Temp Pulse Resp BP Pulse Ox 36.7 C 92 16 108/73 95 03/19/18 06:00 03/19/18 06:00 03/19/18 06:00 03/19/18 06:00 03/19/18 06:00 MSE: Affect: Flat Mood: "OK" TP: Linear, goal-directed TC: Denies any SI/HI Insight/Judgment: Fair - Time Spent With Patient Time Spent With Patient: 15" - Pending Discharge Pending Discharge Within 24 Hours: Yes Pending Discharge Within 48 Hours: No Pending Discharge Date: 03/20/18 (Possible d/c on Tuesday if respite bed available) Pending Discharge Time: 11:00 ICD10 Worksheet Patient Problems: Problems Problem Status Onset Bipolar 1 disorder Acute
[2018-03-20] MEDS ORDERED: ONDANSETRON DISINTEGRATING 4 MG TAB PO PRN (04:00)
[2018-03-20] MEDS ORDERED: CITRIC ACID/SODIUM CITRATE 30 ML UDCUP PO PRN (04:00)
[2018-03-20] MEDS ORDERED: NS 1,000 ML IV PRN (04:00)
[2018-03-20] MEDS ORDERED: LIDOCAINE 2% 5 ML SDV ONE (05:56)
[2018-03-20] MEDS ORDERED: CITRIC ACID/SODIUM CITRATE 30 ML UDCUP ONE (06:00)
[2018-03-20] MEDS ORDERED: ONDANSETRON DISINTEGRATING 4 MG TAB ONE (06:00)
[2018-03-20] MEDS ORDERED: fentaNYL 100 MCG/2 ML INJ ONE (06:33)
[2018-03-20] MEDS ORDERED: GLYCOPYRROLATE 0.2 MG/1 ML VIAL ONE (06:34)
[2018-03-20] MEDS ORDERED: ROCURONIUM 50 MG/5 ML VIAL ONE (06:34)
[2018-03-20] MEDS ORDERED: MIDAZOLAM 2 MG/2 ML VIAL ONE (06:34)
[2018-03-20] MEDS ORDERED: ONDANSETRON 4 MG/2 ML VIAL ONE ×2 (06:34→06:36)
[2018-03-20] MEDS ORDERED: METHOHEXITAL SODIUM 100 MG/10 ML SYR IVP ONE (06:35)
[2018-03-20] MEDS ORDERED: SUCCINYLCHOLINE CHLORIDE 200 MG/10 ML VIAL ONE (06:35)
[2018-03-20] MEDS ORDERED: KETOROLAC 30 MG/1 ML SDV ONE (06:36)
--- NOTE | 2018-03-20 06:44 | PDANEPAE ---
ECT Pre Anesthetic Evaluation Allergies/Adverse Reactions: lithium Allergy (Verified 10/05/17 21:51) Patient ID confirmed: Yes H&P reviewed: Yes Pre-anesthetic history reviewed: Yes Heart: regular rate and rhythym, no murmur, rub, or gallop Lungs: no respiratory distress, no rales or rhonchi Mallampati Score: Class 1 ASA Status: II Home Medications: Medication Instructions Recorded ARIPiprazole [Abilify Maintena] 400 mg IM Q21D 02/16/18 Medication review: completed Patient interviewed: Yes Patient examined: Yes Anesthetic plan discussed with patient: Yes Anesthetic risks discussed with patient: Yes ECT Pre-Anesthetic History - Height & Weight Height: 172.72 cm Weight: 74.928 kg BMI: 25.12 - Anesthesia History Hx Anesthesia Complications (with details): None. Family Hx Anesthesia Complications: None. - Medications In the Past 6 Months the Patient Has Taken: Steroids, Aspirin - Tobacco/Alcohol/Drug Use Smoking Status: Current every day smoker Total Number Of Years As A Smoker: 30 Packs Per Day: 1 Hx Drug/Substance Abuse: No Alcohol Use: No Alcohol Quantity: None. Tobacco/Alcohol/Drug Use History Comment: Pt denies any drug or alcohol use, besides cigarettes - Prior Surgeries/Hospitalizations Prior Surgeries: Tubal ligation in 1987, surgery for broken collarbone, cracked ribs, and punctured lung in "the 90s" Prior Medical Hospitalizations: Hospitalizaion for collarbone, cracked ribs, and punctured lung in "the 90s" - Pulmonary History ECT Hx Asthma: No Hx Abnormal Chest X-Ray: No Hx Oxygen in Use at Home: No - Cardiovascular History Hx Hypertension: No Currently Uses Hypertension Medication: No Hx Arrhythmias: No Hx Palpitations: No Hx Chest Pain: No Hx Coronary Artery / Peripheral Vascular Disease: No Hx Blood Clot: No - Neurologic History Hx Cerebrovascular Accident: No Hx CT Scan Or MRI Of The Brain: No Hx Epilepsy, Convulsions, Seizures, Or Blackouts: No Hx Frequent Or Severe Headaches: No Hx Numbness: No Hx Neurologic Disorder: No - Dental History Current Dental Issues: Other Dental History Comment: Pt describes numerous fillings, unable to give exact figure. - Endocrine History Hx Diabetes: No Current Daily Insulin Injections: No Hx Thyroid Problems: No - Renal/Urologic History Hx Renal Disorders: No Hx Urinary Tract Problems: No - Liver History Hx Hepatic Disorders: No - Cancer History Hx Cancer: No - Hematology History Hx Unexplained Bleeding Of Any Type: No Hx Ease Of Bruising: No Hx Anemia: No - Gastrointestinal History Hx Gastroesophogeal Reflux Disease: No Hx Ulcers: No Hx Hiatal Hernia: No Hx Difficulty Swallowing: No - Musculoskeletal Hisory Hx Chronic Pain: Yes Chronic Pain Location: Joints Hx Arthritis: Yes Musculoskeletal History Comment: Chronic knee pain - Opthalmic History Hx Glaucoma: No Visual Assistive Devices: Glasses Hx Opthalmic Disorders: No - Other Health History Physical Disabililty: No Recent Cough, Cold, or Fever: No Significant Weight Loss In The Last 4 Months: No Possible the Patient Might be : No Other Health History Comment: Pt received Cortisone for knee inflammation on 01/25.
--- NOTE | 2018-03-20 07:09 | PDECTIHP ---
ECT Interval H&P Patient Problems: Problems Problem Status Onset Code Bipolar 1 disorder Acute F31.9 Chief complaint: Patient wishes to continue ECT and requires a medical status update to do so. General health: In collaboration with Anesthesiology, potential benefits of treatment outweigh risk. Focused physical exam including relevant body area/organ sys: alert & oriented, moves all extremities, no progressively increasing headaches, no ataxia, no evidence of delirium, no focal sensory deficits, no focal weakness, speech normal
--- NOTE | 2018-03-20 07:12 | PDECTPN ---
ECT Progress Note Patient Problems: Problems Problem Status Onset Code Bipolar 1 disorder Acute F31.9 Date: 03/20/18 ECT provider: Brandon Hill Anesthesia: Maribell Rojas Stimulus dose (%): 80 Pulse width: 0.5 ECT EMG (sec): 0 ECT EEG (sec): 0 ECT treatment type: bilateral QIDS-SR Total Score: 11 QIDS-SR Question #12 Score: 0 MMSE Total Score (Max = 21): 18 O/P psychiatrist follow up with Dr.: Dr. Garcia O/P psychiatrist follow up: direct communication Home medications: Medication Instructions Recorded ARIPiprazole [Abilify Maintena] 400 mg IM Q21D 02/16/18 Medication review: completed Current treatment plan: acute phase Treatment plan frequency: 2 times per week ECT narrative: Pt seen for continued acute course ECT treatment, chart reviewed. She reports feeling well. MMSE decreased last week to 13, up to 18 today. Interacts well with no notable deficits. Reports "good" mood. No c/o's. Activity and speech are normal. Affect slightly blunted, smiling, stable, approp. Mood is "pretty good." TP is linear. TC reveals no psychosis. Does not endorse SI. Underwent bilateral ECT without complication. Good response to ECT. Will CCM, monitor. Continue to coordinate d/c planning with MHP's.
--- NOTE | 2018-03-21 12:26 | SOAPPROG ---
SOAP Progress Note Assessment/Plan: Assessment: Plan: 02/21/18 16:32 Mood: Remains depressed. CCM. 02/23/18 15:41 Mood: Tolerating treatment well. CCM. 02/28/18 19:12 Mood: Slow improvement. CCM. 03/02/18 15:14 Mood: Continued improvement. [facility]. 03/07/18 20:52 Mood: Doing well. Clear objective improvement iwth ECT. 03/09/18 20:42 Mood: Continued gradual improvement. CCM. 03/21/18 12:25 Mood: Doing well. Will CCM, monitor. Continue active d/c plan. Subjective: Pt seen, discussed with staff. Reports feeling "good." Staff notes ongoing memory issues. She is up and about the unit, visiting with others appropriately. Tends to be reserved. Offers no c/o's. CC working with MHP's re: d/c planning. Objective: Vital Signs Temp Pulse Resp BP Pulse Ox 36.6 C 71 14 91/58 L 94 03/21/18 06:00 03/21/18 06:00 03/21/18 06:00 03/21/18 06:00 03/21/18 06:00 03/20/18 03/21/18 03/22/18 05:59 05:59 05:59 Intake Total 825 Balance 825 - Time Spent With Patient Time Spent With Patient: 15" ICD10 Worksheet Patient Problems: Problems Problem Status Onset Bipolar 1 disorder Acute
[2018-03-22] MEDS ORDERED: LIDOCAINE 2% 5 ML SDV ONE (05:38)
--- NOTE | 2018-03-22 13:32 | ASMTCMCOM ---
CM Note CM Note Notes: The patient participated in clinical treatment team rounds; she was engaged and appropriate. The patient responds delayed and has difficulty focusing her thoughts. She was observed smiling and reported that she is feeling "pretty good." The patient agreed that she will stay on the unit a few more days until her confusion subsides. Date Signed: 03/22/2018 01:31 PM Electronically Signed By:Lacey Cruz
--- NOTE | 2018-03-22 13:55 | SOAPPROG ---
SOAP Progress Note Assessment/Plan: Assessment: Plan: 02/21/18 16:32 Mood: Remains depressed. CCM. 02/23/18 15:41 Mood: Tolerating treatment well. CCM. 02/28/18 19:12 Mood: Slow improvement. CCM. 03/02/18 15:14 Mood: Continued improvement. CCM. 03/07/18 20:52 Mood: Doing well. Clear objective improvement iwth ECT. 03/09/18 20:42 Mood: Continued gradual improvement. CCM. 03/21/18 12:25 Mood: Doing well. Will CCM, monitor. Continue active d/c plan. 03/22/18 13:55 Mood: Doing well. CCM. Cognition will need to improve prior to her being able to go to respite. Subjective: Pt seen, discussed with staff, interviewed in Treatment Team meeting. She reports feeling "pretty good." Remains quiet, reserved, though appropriately interactive. She states she feels capable of leaving the hospital though cannot give the date or day of the week. Cannot remember when she had ECT last. Continues to exhibit a delay in responses to questions and blocking or derailment. Her affect is bright and she appears cheerful. Objective: Vital Signs Temp Pulse Resp BP Pulse Ox 36.4 C 71 15 92/57 L 95 03/22/18 06:00 03/22/18 06:00 03/22/18 06:00 03/22/18 06:00 03/22/18 06:00 03/21/18 03/22/18 03/23/18 05:59 05:59 05:59 Intake Total 825 Balance 825 MSE: Calm, coop. Affect is euthymic, stable, approp. Mood is "good." TP is linear, though demonstrates some delay in responses and occasional blocking. TC reveals no psychosis. No SI/HI/. - Time Spent With Patient Time Spent With Patient: 25" ICD10 Worksheet Patient Problems: Problems Problem Status Onset Bipolar 1 disorder Acute
--- NOTE | 2018-03-23 11:57 | ASMTCMCOM ---
CM Note CM Note Notes: Hector Cuenca: Im trying to plan to get D to respite. Her therapist, Azucena, is going to see her at [facility] tomorrow afternoon, and could foreseeably transport her to the [facility] where she could be evaluated, and probably (not 100% guaranteed) stay at [facility] until she could admit to respite Sunday 03/25 afternoon. The other option, if shes not safe/ok to discharge, is to get her to the [facility] at [address] as early as feasible on Tuesday, as she will still need to meet with staff there and then get admitted to respite. We are doing what we can to hold the bed. Date Signed: 03/23/2018 11:55 AM Electronically Signed By:Bobby Hughes
--- NOTE | 2018-03-23 17:07 | SOAPPROG ---
SOAP Progress Note Assessment/Plan: Assessment: Plan: 02/21/18 16:32 Mood: Remains depressed. CCM. 02/23/18 15:41 Mood: Tolerating treatment well. CCM. 02/28/18 19:12 Mood: Slow improvement. CCM. 03/02/18 15:14 Mood: Continued improvement. CCM. 03/07/18 20:52 Mood: Doing well. Clear objective improvement iwth ECT. 03/09/18 20:42 Mood: Continued gradual improvement. CCM. 03/21/18 12:25 Mood: Doing well. Will CCM, monitor. Continue active d/c plan. 03/22/18 13:55 Mood: Doing well. CCM. Cognition will need to improve prior to her being able to go to respite. 03/23/18 17:07 Mood: Cognition is improving. CCM. May be able to transition out tomorrow. Subjective: Pt seen, discussed with staff. Reports feeling "good" today. Remains mostly in her room. This is more prominent today and likely influenced by an escalation in the milieu over the past 24 hours. Cognition seems better today with fewer pauses/blocks. Objective: Vital Signs Temp Pulse Resp BP Pulse Ox 36.6 C 61 16 104/60 95 03/23/18 06:00 03/23/18 06:00 03/23/18 06:00 03/23/18 06:00 03/23/18 06:00 MSE: Calm, coop. Affect is euthymic, stable, approp. Mood is "good." TP linear. TC reveals no psychosis. Denies SI. - Time Spent With Patient Time Spent With Patient: 15" ICD10 Worksheet Patient Problems: Problems Problem Status Onset Bipolar 1 disorder Acute
--- NOTE | 2018-03-24 13:29 | ASMTBHDC ---
Notes Note: Notes: Pt. reports feeling "Okay" and sleeping "pretty well". Pt. stated she did not have ECT today. Pt. stated she believes she is discharging tomorrow. Pt. stated she is not sure what her medications are, but stated she can pay to have any prescriptions filled. Pt. stated she can get herself to her follow up appointment, but then stated she doesn't know where her car is. Pt. stated she feels "okay" about discharge. Pt. stated she has a suitcase and other property she will need at discharge. Pt. stated since arriving "my thought processes as far as.... just the future". Pt. stated she feels more optimistic. Pt. denied SI, HI, AVH and paranoia. Pt. presents as somewhat alert, confused at times, good eye contact, calm, and with a friendly demeanor. Staff report pt. sleeping well and being medication compliant. Pt's follow up appointments are: Follow up with: [facility] [address] [place] [address] Azucena Manning, ACT therapist, 03/28/18 @ 10 am [address] [facility] [address] [address] Ericka Garcia, psychiatrist, TuesdayMarch 28 (03/28/18) at 11:30 a.m., check in at 11:15 a.m., same address as above. Client to report to [facility], for respite entry. Azucena will also see her some time earlier next week at location [facility], maybe respite, maybe elsewhere. Shes ACT, so there will be two contacts/week, plus the daily case mgt and pain management specialist contact shell have beginning Tuesday at respite: compliance mgr Sat will be Woody Be. Date Signed: 03/24/2018 01:29 PM Electronically Signed By:Aleta Perez
--- NOTE | 2018-03-24 15:32 | SOAPPROG ---
SOAP Progress Note Assessment/Plan: Assessment: Plan: 02/21/18 16:32 Mood: Remains depressed. CCM. 02/23/18 15:41 Mood: Tolerating treatment well. CCM. 02/28/18 19:12 Mood: Slow improvement. CCM. 03/02/18 15:14 Mood: Continued improvement. CCM. 03/07/18 20:52 Mood: Doing well. Clear objective improvement iwth ECT. 03/09/18 20:42 Mood: Continued gradual improvement. CCM. 03/21/18 12:25 Mood: Doing well. Will CCM, monitor. Continue active d/c plan. 03/22/18 13:55 Mood: Doing well. CCM. Cognition will need to improve prior to her being able to go to respite. 03/23/18 17:07 Mood: Cognition is improving. CCM. May be able to transition out tomorrow. 03/24/18 15:32 Mood: Continued improvement. CCM. Likely d/c in the am if all is well. Subjective: Pt seen, discussed with staff. Improving with better cognition, good mood. MHP' s states she can go to respite bed tomorrow. She is in agreement with this. Objective: Vital Signs Temp Pulse Resp BP Pulse Ox 36.8 C 77 16 98/65 L 95 03/24/18 06:00 03/24/18 06:00 03/24/18 06:00 03/24/18 06:00 03/24/18 06:00 MSE: Calm, coop. Affect is euthymic, stable, approp. Mood is "pretty good." TP linear. TC reveals no psychosis. Cognition improved. No SI. - Time Spent With Patient Time Spent With Patient: 15" ICD10 Worksheet Patient Problems: Problems Problem Status Onset Bipolar 1 disorder Acute
--- NOTE | 2018-03-25 05:27 | BDS ---
REASON FOR ADMISSION: Patient is a 58-year-old female with a history of chronic and severe bipolar disorder. She was admitted to the hospital on referral from her outpatient team at [facility] due to rather protracted and severe depression. Her course of her illness has been predominantly recurrent constantino, though for the last several months she has had a fairly intracta ble depression and her outpatient team, including Dr. Garcia, believed that she would be best served by a course of ECT due to her intolerance of antidepressant medications. A full description of the jacob nts preceding admission can be found in her admission history dated 02/17/2018. ADMITTING DIAGNOSES: Bipolar disorder type 1, most recent episode depressed, severe, without psychos is; chronic illness; recurrent illness; homelessness; lack of natural supports. ADMISSION PHYSICAL EXAMINATION: Performed by Dr. Wayne Faria revealed no acute physical findings . ADMISSION LABORATORY: CBC showed no significant abnormalities. Serum chemistries were normal. Hemo globin A1c was normal at 5.3. Triglycerides were up at 154. Remainder of lipid profile was normal w ith a cholesterol of 160. Vitamin B12 was normal at 506, vitamin D was normal at 40.5, TSH was negro l at 2.5. Urine drug screen is negative for all substances and alcohol was less than detectable. HOSPITAL COURSE: Patient was admitted to the [facility] inpatient unit on an M1 on a v oluntary basis. She was pleasant, cooperative and agreeable to the treatment plan. I reviewed with her at length the risks, benefits, and alternatives of ECT and she stated that she felt like this was a good choice for her as she felt her brain essentially was not working correctly. We embarked on a n acute course of ECT immediately and she tolerated the treatments quite well. Her 1st treatment was on 02/20/2018, at which time she received bilateral treatment with stimulus dose of 30%. She had a good response and minimal side effects. She then received a total of 11 bilateral ECT treatments. S he tolerated these well though did have some significant cognitive disruption. Her treatment schedul e for 03/17/2018 was held due to her cognition and she received her last treatment on 03/20/2018. Sh e was given the week to recover as she was to discharge to a respite bed through [facility]. Patient's hospitalization was uncomplicated. She had the cognitive affects from the treatment but th fang were not exaggerated and she had no evidence of delirium. Her mood increased significantly, thou gh the improvement was at times more objective than subjective. She clearly struggled to see herself being well or happy and was persistently concerned about her living circumstance. We attempted to r eassure her about this and collaborated throughout her hospitalization with [facility]. Eventually, she was to be discharged to a respite bed on the day following this dictation in the [facility] as has been planned in coordination with [facility]. CONDITION AT DISCHARGE: Stable. Her affect is euthymic, stable and appropriate, and her cognition i s reasonable. She is voicing no thoughts of suicide and showing no evidence of psychosis. DISCHARGE MEDICATIONS: Only Abilify Maintena 400 mg 1 every 21 days, last given on March 14, 2018. DISCHARGE DIAGNOSES: 1. Bipolar 1 disorder, most recent episode depressed, severe, without psychosis. 2. Chronic illness. 3. Recurrent illness. 4. Homelessness. 5. Lack of supports. DISPOSITION: Patient is to be discharged by cab to the walk-in clinic through [facility] for placement in respite bed. Attitude toward discharge is currently positive. Patient is to be given paperwork at the time of her discharge, but she is well aware of the plan at t his time. She is followed by the ACT team through [facility] who are also aware of where she will be. LEGAL COURSE: Patient was voluntary throughout her stay. There are no pending labs or studies at time of discharge. Patient was a full code throughout her stay. She was given nicotine, alcohol and cannabis use disorder screenings and was not interested in furthe treatment for nicotine dependence. She was also given the metabolic screening, which was essential ly normal. /[id number]/MODL
[2018-03-25 06:54] VITALS: BP 99/65
--- NOTE | 2018-03-25 10:47 | ASMTBHDC ---
Notes Note: Notes: Pt. reports feeling fine. Pt. stated she will need her suitcase before she discharges. Pt. stated she is unsure where her car is. Pt's TLC evaluation stated pt. self-presented to ED. Pt. was given two bus passes, one to be able to get her car and one to get to her follow up appointments if needed. Pt. stated she understood and stated she is "ready to go". Pt. denied SI, HI, AVH and paranoia. Date Signed: 03/25/2018 10:46 AM Electronically Signed By:Aleta Perez
== END 2018-03-25 10:45 | DRG 885 ==
LOC: BBEH 19:00
PROVIDERS: ADMIT Psychiatry & Neurology Psychiatry; ATTEND Psychiatry & Neurology Psychiatry
PROC: GZB4ZZZ Other Electroconvulsive Therapy (ICD-10-PCS; principal; 2018-02-20)
PROC: GZB4ZZZ Other Electroconvulsive Therapy (ICD-10-PCS; 2018-02-22)
PROC: GZB4ZZZ Other Electroconvulsive Therapy (ICD-10-PCS; 2018-02-24)
PROC: GZB4ZZZ Other Electroconvulsive Therapy (ICD-10-PCS; 2018-02-27)
PROC: GZB4ZZZ Other Electroconvulsive Therapy (ICD-10-PCS; 2018-03-01)
PROC: GZB4ZZZ Other Electroconvulsive Therapy (ICD-10-PCS; 2018-03-03)
PROC: GZB4ZZZ Other Electroconvulsive Therapy (ICD-10-PCS; 2018-03-06)
PROC: GZB4ZZZ Other Electroconvulsive Therapy (ICD-10-PCS; 2018-03-08)
PROC: GZB4ZZZ Other Electroconvulsive Therapy (ICD-10-PCS; 2018-03-10)
PROC: GZB4ZZZ Other Electroconvulsive Therapy (ICD-10-PCS; 2018-03-13)
PROC: GZB4ZZZ Other Electroconvulsive Therapy (ICD-10-PCS; 2018-03-15)
PROC: GZB4ZZZ Other Electroconvulsive Therapy (ICD-10-PCS; 2018-03-20)
DX: F31.4 Bipolar disorder, current episode depressed, severe, without psychotic features (principal); Z59.0 Homelessness; F17.210 Nicotine dependence, cigarettes, uncomplicated; M17.0 Bilateral primary osteoarthritis of knee
CPT/HCPCS: 80305; 82607-90; 86141-90; G0480; J0330; J0401; J1885; J2250; J2405; J3010

== ENCOUNTER 2018-05-23 04:24 | Inpatient (IN) | payer OTHER, MEDICAID ==
[2018-05-23] MEDS ORDERED: HALOPERIDOL LACT 5 MG/ML INJ IM ONE (04:25)
[2018-05-23] MEDS ORDERED: LORazepam 2 MG/ML INJ IM ONE (04:26)
--- NOTE | 2018-05-23 04:28 | EDPHY ---
H & P Source: Patient, Police, EMS - Medical/Surgical History Hx Asthma: No Hx Chronic Respiratory Disease: No Hx Diabetes: No Hx Cardiac Disease: No Hx Renal Disease: No Hx Cirrhosis: No Hx Alcoholism: No Hx HIV/AIDS: No Hx Splenectomy or Spleen Trauma: No Other PMH: Bipolar, tubal ligation, pneumothorax, rt arm cut down - Social History Smoking Status: Current every day smoker Time Seen by Provider: 05/23/18 04:27 HPI/ROS: HPI CHIEF COMPLAINT: Acute psychosis. Genna. M1 hold by police. HISTORY OF PRESENT ILLNESS: 58-year-old female presents emergency with a history of bipolar disorder, presents emergency room by police in handcuffs with EMS for agitated aggressive behavior and acute genna. 911 was called her friends how she would not leave her friend's house. She arrives emergency room somewhat agitated and combative in handcuffs. Yelling. Appears to be manic. Past Medical History: Bipolar disorder Past Surgical History: No recent surgery Social History: Reported alcohol this evening Family History: Noncontributory ROS REVIEW OF SYSTEMS: Limited due to mental state. Exam Constitutional yelling and agitated, triage nursing summary reviewed, vital signs reviewed, awake/alert. Eyes normal conjunctivae and sclera, EOMI, PERRLA. HENT normal inspection, atraumatic, moist mucus membranes, no epistaxis, neck supple/ no meningismus, no raccoon eyes. Respiratory clear to auscultation bilaterally, normal breath sounds, no respiratory distress, no wheezing. Cardiovascular rate normal, regular rhythm, no murmur, no edema, distal pulses normal. Gastrointestinal soft, non-tender, no rebound, no guarding, normal bowel sounds, no distension, no pulsatile mass. Genitourinary no CVA tenderness. Musculoskeletal no midline vertebral tenderness, full range of motion, no calf swelling, no tenderness of extremities, no meningismus, good pulses, neurovascularly intact. Skin pink, warm, & dry, no rash, skin atraumatic. Neurologic yelling, acutely psychotic, somewhat agitated awake, alert and oriented x 3, AAOx3, moves all 4 extremities equally, motor intact, sensory intact, CN II-XII intact, normal cerebellar, normal vision, pressured speech Psychiatric normal mood/affect. Heme/Lymph/Immune no lymphadenopathy. Differential Diagnosis: Includes but is not limited to in a particular order acute genna, bipolar disorder, mood disorder, psychosis, drug intoxication alcohol intoxication Medical Decision Making: Plan for this patient IM Haldol 10 mg, IM Ativan 2 mg , basic blood work, patient on M1 hold by police patient will need to be calmed down and then and evaluated later today after she metabolize the medications. Re-evaluation: (Alessandro Singletary) Constitutional: Initial Vital Signs Temperature (C) 36.7 C 05/23/18 04:35 Heart Rate 112 H 05/23/18 04:35 Respiratory Rate 18 05/23/18 04:35 Blood Pressure 140/89 H 05/23/18 04:35 O2 Sat (%) 114 H 05/23/18 04:35 O2 Delivery Mode Room Air Allergies/Adverse Reactions: lithium Allergy (Verified 05/23/18 04:39) Home Medications: Medication Instructions Recorded ARIPiprazole [Abilify Maintena] 400 mg IM Q21D 02/16/18 Divalproex [Depakote] 1,200 mg PO 05/23/18 Medical Decision Making Other Provider: [id number]: Patient has been accepted to [address] [place] [address] Hill[address] (Skip Velasco) - Data Points Laboratory Results: Laboratory Results 05/23/18 04:55 05/23/18 04:55 05/23/18 05/23/18 05/23/18 06:00 04:55 04:55 WBC 10.55 10^3/uL H 10^3/uL (3.80-9.50) RBC 3.37 10^6/uL L 10^6/uL (4.18-5.33) Hgb 10.8 g/dL L g/dL (12.6-16.3) Hct 32.5 % L % (38.0-47.0) MCV 96.4 fL fL (81.5-99.8) MCH 32.0 pg pg (27.9-34.1) MCHC 33.2 g/dL g/dL (32.4-36.7) RDW 12.9 % % (11.5-15.2) Plt Count 389 10^3/uL 10^3/uL (150-400) MPV 8.3 fL L fL (8.7-11.7) Neut % (Auto) Not Reported Lymph % (Auto) Not Reported [place] % (Auto) Not Reported Eos % (Auto) Not Reported Baso % (Auto) Not Reported Nucleat RBC Rel Count Not Reported Absolute Neuts (auto) Not Reported Absolute Lymphs (auto) Not Reported Absolute Monos (auto) Not Reported Absolute Eos (auto) Not Reported Absolute Basos (auto) Not Reported Absolute Nucleated RBC Not Reported Immature Gran % Not Reported Seg Neutrophils % 66.0 % % Band Neutrophils % 0.0 % % Lymphocytes % 23.0 % % Monocytes % 8.0 % % Eosinophils % 1.0 % % Basophils % 0.0 % % Metamyelocytes % 0.0 % % Myelocytes % 1.0 % % Promyelocytes % 1.0 % % Blast Cells % 0.0 % % Immature Gran # Not Reported Absolute Seg Neuts 6.96 10^3/uL H 10^3/uL (1.70-6.50) Absolute Band Neuts 0.00 10^3/uL 10^3/uL (0.00-0.70) Absolute Lymphocytes 2.43 10^3/uL 10^3/uL (1.00-3.00) Absolute Monocytes 0.84 10^3/uL H 10^3/uL (0.30-0.80) Absolute Eosinophils 0.11 10^3/uL 10^3/uL (0.03-0.40) Absolute Basophils 0.00 10^3/uL L 10^3/uL (0.02-0.10) Absolute Metamyelocyte 0.00 10^3/mL 10^3/mL (0.00-0.00) Absolute Myelocytes 0.11 10^3/mL H 10^3/mL (0.00-0.00) Absolute Promyelocytes 0.11 10^3/uL H 10^3/uL (0.00-0.00) Absolute Plasma Cells 0.00 10^3/uL 10^3/uL (0.00-0.00) Nucleated RBCs 0 /100 WBC /100 WBC (0-0) Absolute Blast Cells 0.00 10^3/uL 10^3/uL (0.00-0.00) Plasma Cells % 0.0 % % Platelet Estimate ADEQUATE (ADEQ) Smear Review By Pending Sodium 135 mEq/L mEq/L (135-145) Potassium 4.2 mEq/L mEq/L (3.5-5.2) Chloride 104 mEq/L mEq/L (97-110) Carbon Dioxide 25 mEq/l mEq/l (22-31) Anion Gap 6 mEq/L mEq/L (6-14) BUN 10 mg/dL mg/dL (7-23) Creatinine 0.7 mg/dL mg/dL (0.6-1.0) Estimated GFR > 60 Glucose 90 mg/dL mg/dL (70-100) Calcium 9.3 mg/dL mg/dL (8.5-10.4) Urine Opiates Screen NEGATIVE (NEGATIVE) Urine Barbiturates NEGATIVE (NEGATIVE) Ur Phencyclidine Scrn NEGATIVE (NEGATIVE) Ur Amphetamine Screen NEGATIVE (NEGATIVE) U Benzodiazepines Scrn NEGATIVE (NEGATIVE) Urine Cocaine Screen NEGATIVE (NEGATIVE) U Marijuana (THC) Screen NEGATIVE (NEGATIVE) Ethyl Alcohol < 10 mg/dL mg/dL (0-10) Medications Given: Discontinued Medications Haloperidol Lactate (Haldol Injection) 10 mg IM EDNOW ONE Stop: 05/23/18 04:26 Last Admin: 05/23/18 04:33 Dose: 10 mg Sodium Chloride (Ns) 1,000 mls @ 0 mls/hr IV ONCE ONE PRN Reason: Wide Open Stop: 05/23/18 05:18 Last Admin: 05/23/18 05:19 Dose: 1,000 mls Lorazepam (Ativan Injection) 2 mg IM EDNOW ONE Stop: 05/23/18 04:27 Last Admin: 05/23/18 04:34 Dose: 2 mg Departure - Departure Disposition: [facility] IP Clinical Impression: Bipolar 1 disorder, Altered mental status Condition: Fair Referrals: Patient,NotPresent [Primary Care Provider] - As per Instructions
[2018-05-23 05:06] LABS: PLATELET COUNT 389 10^3/uL (150-400)
[2018-05-23] MEDS ORDERED: ZIPRASIDONE MESYLATE 20 MG VIAL IM ONE (05:16)
[2018-05-23] MEDS ORDERED: NS 1,000 ML IV ONE (05:17)
--- NOTE | 2018-05-23 07:10 | ASMTTLCEVL ---
TLC Evaluation - Basic Information Evaluation Start Date and 05/23/2018 05:30 AM Time Hospital Status Answers: M1 Hold 72-hr M1 Hold Start Date 05/23/2018 04:27 AM and Time Narrative Notes: Pt is a 58 yo, , unemployed, female with known history of severe, treatment resistant bipolar disorder, brought to [facility] ED by EMS and [employer] on an M1 hold in handcuffs for agitated aggressive behavior and constantino. Per M1, respondent was contacted in a friends apartment and refused to leave. Officers were advised that respondent was bipolar and was manic. Respondent appeared to not fully process officers requests. Respondent was shouting uncontrollably once out of the apartment and began to cry. Respondents speech was tangential and she was not making sense. Precipitant to her last admission was her [facility] prescriber Dr. Garcia referring her for admission to for ECT treatment under Dr. Jeffry Hill. Pt has been under Dr. Das care since December 2017 and a patient at [facility] since 2005. Pt is currently on [facility]. She has severe and treatment refractory Bipolar I Disorder. Despite numerous medication trials and combinations, pt continue to regularly cycle between severe and prolonged constantino and at times catatonic depression. She has had multiple psychiatric hospitalizations. Her severe illness has also led to several psychosocial challenges including homelessness, difficulty holding jobs, legal issues, and family discord. Her current medications are Abilify Maintena 400 mg IM q21 days (last administered 05/19/18, next 06/09/18); Depakote 500 mg in am and [address] Garcia discontinued Hydroxyzine as pt never started/took it. When she is manic, Depakote is typically added but because of side effects, she does not like to take this medication chronically. Past ineffictive and/or intolerable medications have included Zyprexa, Saphris, Seroquel, Latuda, Tombstone, and Lamictal, even while on a mood stabilizer or antipsychotic medication. Pt has become manic if given an antidepressant medication (past antidepressant medications have included Wellbutrin, Paxil, and Cymbalta). She is extremely sensitive to medication changes. Per her most recent admission to , pt was manic and gravely disabled due to not taking her medications as prescribed. She was engaging in high risk behaviors, i.e...letting male strangers stay overnight with her; was trying to buy a truck to drive to [place], visiting [employer] to obtain loans. She lost her job because her constantino causes her to be irritable, argumentative and socially disinhibited. She risks legal involvement. Pt was administered emergency medications of Haldol 10 mg IM and Ativan 2 mg IM at 0433 and 0434 respectively. Diagnosis History Notes: Pt was diagnosed with Bipolar I Disorder at the age of 18. Prior suicide attempts Notes: Pt denied current suicidal or homicidal ideation. She reported a history of suicide attempts by overdose, most recently 2.5 years ago that resulted in pt going to [facility]. Prior hospitalizations Notes: Pt reported a history of numerous inpatient psychiatric hospitalizations since age 18. Pt previously reported that she "grew up in [facility]" with a stay at [facility] prior to [facility] and an admission to [facility] in October of 2016. Pt was discharged from [facility] 10/17/17 following a 6 day stay. She was readmitted to on 10/27/17 to 11/07/17 and most recently from 02/16/18 to 03/24/18. Treatment Responses Notes: Pt has known history of severe, treatment resistant bipolar disorder. History of violence Notes: No reported past history of aggression/violence. Therapist: Sophia Travis at [facility]. Psychiatrist: Ericka Garcia MD at [facility]. Medications (name, dosage, route, freq uency) Notes: Abilify Maintena 400 mg IM q21 days (last administered 05/19/18, next 06/09/18); Depakote 500 mg in am and [address] Garcia discontinued Hydroxyzine as pt never started taking it. Allergies/Reaction Notes: Tombstone. Sleep Notes: Pt reports she has been sleeping all the time radha Im depressed. If Im not sleeping, Im lying down and just thinking. Appetite Notes: Pt reports her appetite is normal and eats big meal a day and has a bowl of cereal for breakfast. Medical/Surgical history Notes: Per Sandoval at [facility], pt was scheduled to have knee replacement surgery on 05/11/18. Substance use history (frequency, intensity, his tory, duration) Notes: Pt reported she has used alcohol in the past but none in the past 18 years. Pt reported she quit smoking at the end of September 2017. She uses lozenges from [employer]. She reported her last use of marijuana was in early September 2017. She denied all other substance use including meth, cocaine, crack, heroin, prescription medication abuse. BAL was zero. UDS results were negative for all tested substances. Family composition Notes: Pt has a brother. Need for family Answers: No participation in patient's care Family psychiatric/substance abuse history Notes: Pt reported a history of bipolar disorder on both sides of her family. She denied any family history of suicide attempts or completions. She reported having a brother that abuses alcohol. Developmental history Notes: Pt was born in [place], [place]. Her parents were at the time of her and she was raised the majority of her life in [place] by both parents until age 12 and then she moved with her mother to her grandmothers home in [place]. She reported that she met all developmental milestones and reported no learning delays or difficulties. Pt denied any childhood history of TBIs, LOC or concussions. She denied any childhood history of physical, emotional or sexual abuse/trauma. Abuse concerns Answers: None Marital status/children Notes: Pt has been three times, three times and has 2 children, ages 37 and 30, and five grandchildren. Living situation Notes: Pt is currently homeless. Sexual history/orientation Notes: Heterosexual. Active. Peer support/family strengths Notes: Pt identifies her brother as a support. Education level/history Notes: Pt has an associates degree and a degree in [email or web address]. Work history Notes: Pt is unemployed. Pt receives $1,033 in disability each month. Notes: None. Legal Notes: Pt has been in [facility] before when off her medications. She currently faces no legal charges. Samaritan/Spiritual Notes: Pt reported her rastafarian practice is Mandaeism. Leisure Notes: None reported. Patient's strengths Answers: Artistic/Creative/Musical (Please select at least TWO strengths): Willingness TLC Evaluation - Mental Status Exam Appearance: Answers: Unclean Unkempt Disheveled Eye Contact: Answers: Avoiding Intermittent Mood: Answers: Depressed Irritable Labile Affect: Answers: Agitated Angry Congruent w/ Mood Expansive Guarded Hostile Irritable Labile Sad Tearful Behavior: Answers: Inappropriate Uncooperative Aggressive Belligerent Erratic Fearful Guarded Impulsive Resistive to Care Restless Sedated Shouting Sleeping Speech: Answers: Irrelevant Illogical Unclear Circumstantial Dramatic Loose Associations Loud Pressured Rambling Threatening Thought Process: Answers: Disorganized Disoriented Circumstantial Flight of Ideas Loose Associations Tangential Insight: Answers: Poor Judgement: Answers: Poor Manic Signs/Symptoms Answers: Distractibility Euphoria Hypersexuality Impulsivity Irritability Mood Swings Depression Answers: Difficulty Concentrating Signs/Symptoms: Diminished Interest Diminished Pleasure Psychomotor Agitation Sad Mood Hallucinations: Answers: None Delusions: Answers: Grandiose Current Stage of Change Answers: Precontemplation Pt reported to have Answers: No suicidal/self-injuring ideation/behavior? Pt reported to be making Answers: No suicidal/self-injuring threats? Pt reported to have Answers: No aggression/assault ideation/behavior? Pt reported to be making Answers: No aggression/assault threats? Pt exhibits inability to Answers: Yes care for self/grave disability? Ideation/behavior is Answers: Yes chronic? Patient has a specific Answers: No plan? Pt has access to means to Answers: No execute the plan? Ideation involves Answers: No serious/lethal intent? Ideation has Answers: Yes delusional/hallucinatory content? History of Answers: Yes suicidal/self-injuring ideation, behavior, or threats? History of Answers: No aggressive/assaultive ideation, behavior, or threats? History of serious Answers: No physical harm to self/others while in treatment setting? TLC Evaluation - Suicide/Homicide Risk Suicide Risk Factors: Answers: < 20 or > 40 Years of Age Agitation Anhedonia Bipolar Disorder Impulsivity Inadequate Social Support Lack of Social Support Lack/Loss of Employment Major Depression Prior Suicide Attempt(s) Rapid Mood Shifts Single Unstable Living Situation Homicide/violence risk Answers: None factors: Current Suicidal Answers: No Ideation? Current Suicidal Ideation Answers: No in the Past 48 Hours? Current Suicidal Ideation Answers: No in the Past Month? Current Suicidal Answers: No Ideation, Worst Ever? Suicide Internal Answers: Samaritan Beliefs Protective Factors: Suicide External Answers: None Protective Factors: Ranking of patient's Answers: Moderate suicidal risk: Ranking of patient's Answers: Moderate homicidal risk: TLC Evaluation - Wrap-up AXIS I Diagnosis (include DSM-V and ICD-10 codes), must also be entered in [employer], which is the source of truth. Notes: Bipolar I Disorder, current or most recent episode mixed with psychotic features 296.40 (F31.0) In consultation with [facility] ED physician, Skip Velasco MD and on-call psychiatrist, Jeffry Hill MD, both concurred that pt appears to meet 27-65 criteria requiring psychiatric hospitalization as pt appears to be gravely disabled due to a mental illness condition. Pt was given (but declined to sign) the 3[facility] prohibited belongings list while in the ED. Pt unable to complete BDI/BSS questionnaires. Evaluation End Date and 05/23/2018 07:10 AM Time (HH:THOMAS): Date Signed: 05/23/2018 07:10 AM Electronically Signed By:Jose Bustamante
--- NOTE | 2018-05-23 07:12 | ASMTTCLDSP ---
TLC Discharge Disposition Disposition: Answers: Admit Disposition Notes: Notes: Admit 3N. Discharge Concerns/Recommendations: Notes: In consultation with [facility] ED physician, Skip Velasco MD and on-call psychiatrist, Jeffry Hill MD, both concurred that pt appears to meet 27-65 criteria requiring psychiatric hospitalization as pt appears to be gravely disabled due to a mental illness condition. Pt was given (but declined to sign) the 3N prohibited belongings list while in the ED. Was patient given the Answers: Yes Inpatient Behavioral Health Prohibited Belongings List while in the ED? For inpatient Jeffry Hill MD admission, the following psychiatrist agreed to accept patient for admission to Behavioral Health ([facility]): Type of Hold: Answers: M1/72-hour Hold Hold initiated by: Answers: Police Date Signed: 05/23/2018 07:12 AM Electronically Signed By:Jose Bustamante
--- NOTE | 2018-05-23 08:26 | GHP ---
DATE OF ADMISSION: 05/23/2018 PRIMARY CARE PHYSICIAN: Unlisted. SOURCE: Patient only able to provide limited history. She is currently sedated and presented with p sychosis. EMR was reviewed and case discussed with the [facility]. CHIEF COMPLAINT: Psychosis and constantino. HISTORY OF PRESENT ILLNESS: This is a 58-year-old female with past medical history significant for t reatment-resistant bipolar disorder, status post multiple medications, hospitalizations and 3 ECT, wh o presents to the emergency department today with local PD after they placed her on an M1 hold. Lida ent was at her friend's house apparently and refused to leave. She was combative, confused, required handcuffs, and was placed on M1 hold. The patient otherwise has recently undergone a left total kne e arthroplasty on 05/11/18, at [facility]. She reports that she has been compliant with her postoperativ e instructions and rehab. She otherwise is denying any pain, or fevers. No recent illnesses. REVIEW OF SYSTEMS: Limited due to patient's somnolence. She received Haldol and Ativan in the emerg ency department. ALLERGIES: To lithium. HOME MEDICATIONS: As per EMR. 1. Depakote. 2. Abilify. PAST MEDICAL HISTORY: Significant for: 1. Treatments of bipolar disorder, status post ECT. 2. Degenerative joint disease, status post left TKA. 3. History of pneumothorax. PAST SURGICAL HISTORY: Significant for: 1. BTL. 2. Right arm surgery. FAMILY HISTORY: Unable to obtain due to patient's somnolence. SOCIAL HISTORY: Listed in previous records that patient is homeless. It is unclear at this time whe re she is residing. She does smoke tobacco. She reported to the ED provider that she did drink this evening. No known illicit drug use. PHYSICAL EXAMINATION: VITAL SIGNS: Upon arrival, blood pressure is 140/89, heart rate 112, respirat ory rate 18, O2 sat is 94% on room air, with temperature 36.7. Current vital signs: Blood pressure 104/61, heart rate 116 (decreased down to 95 while I was at bedside), O2 sat 96% on room air with a r espiratory rate 20. GENERAL: No acute distress, adult female, [facility]. She is somnole nt, but wakes to name and answers a few questions, mumbles some answers, and falls back asleep. She has limited participation with the exam. SKIN: Patient's left knee incision is dry, clean, and inta ct. No surrounding erythema. She does have anticipated postoperative swelling in her foot, her knee , and leg. She does have compression hose in place. Skin otherwise normal color. No pallor. MOUTH : Mucous membranes appear dry. Dentition in fair condition. NOSE: No nasal discharge. NECK: Sup ple trachea midline. CV: Slightly tachycardic in the 90s. No murmurs, rubs, or gallops. Slightly distant heart sounds. EYES: Pupils are with decreased reactivity on the right. Patient refuses to open her eye on the left. No scleral icterus or conjunctival injection. ABDOMEN: Positive bowel so unds. Soft, nontender to palpation. No rebound, guarding, or masses appreciated. RESPIRATORY: Unl abored breathing. Lungs are clear to auscultation bilaterally. Decreased inspiratory effort. : No suprapubic tenderness to palpation. No Hoyt catheter in place. EXTREMITIES: Left leg exam as n oted above. The patient is able to move her distal extremity. She does have decreased range of samanta on in the left knee. NEURO: Grossly nonfocal. No facial drooping. Exam is limited due to patient' s cooperation as well as sedation. She is able to move all her extremities. PSYCH: Patient is conf used. She is somnolent following sedation. Limited assessment possible. LABORATORY STUDIES: WBC is 10.5, H and H is 10.8 and 32.5, MCV 96.4, platelet count is 389; no bands . Sodium is 135, potassium is 4.2, chloride 104, CO2 is 25, anion gap is 6. BUN 10, creatinine 0.7. GFR greater than 60. Glucose 90. Calcium is 9.3. U-tox is negative. Alcohol level is negative. ASSESSMENT AND PLAN: A 58-year-old female with a history of treatment-resistant bipolar disorder, no w with psychosis and constantino, on M1 hold for admission to [address] [place] [address]. 1. Bipolar disorder. Status post Haldol and Ativan in the emergency department. She is currently w ith increased sedation. She will be transferred to the inpatient facility this morning. 2. Degenerative joint disease. Status post left total knee arthroplasty on 05/11/18. Recommend PT evaluation. Her incision appears dry, clean, and intact. No evidence of acute infection. 3. Tachycardia, likely due to dehydration, agitation. No evidence of infectious process at this thom e. 4. Anemia, likely postoperative in nature. The previously available labs from January show a norm al H and H. 5. Fluid, electrolyte, and nutrition. Patient is receiving IV fluid currently in the emergency depa rtment with improvement in her heart rate. Advance diet as patient's mentation improves. 6. Prophylaxis. Will need to verify patient's post discharge anticoagulation regimen as per her ort hopedic surgeon from [facility]. Will need to resume anticoagulation, as she is only 12 days out post le ft total knee arthroplasty. If patient should have worsening swelling or increased pain in her lower extremities, then consider an ultrasound. Continue with compression stocking and routine postop car e. 7. Disposition. Patient will be admitted to inpatient Behavioral Health Unit. /[id number]/MODL
[2018-05-23] MEDS ORDERED: MAGNESIUM HYDROXIDE 30 ML UDCUP PO PRN (11:13)
[2018-05-23] MEDS ORDERED: MAG HYDROX/AL HYDROX/SIMETH 30 ML UDCUP PO PRN (11:13)
--- NOTE | 2018-05-23 12:02 | BAPA ---
DATE OF SERVICE: 05/23/2018 REASON FOR ADMISSION: Patient is a 58-year-old female with history of severe treatment resistant bipolar disorder, who was brought into the [facility] ED by EMS and [place] Police on an M1 hold. She had been at a friend's apartment apparently on [address] and had become agitated, aggressive, and refused to leave. The friend called the police stating that the patient was manic and out of control, and when they arrived they found that this was the case. She was yelling and was unable to understand their instructions. She ended up getting handcuffed and then became more emotional labile, screaming, crying, and talking nonsensically. She was brought to the emergency department, where she received intramuscular administration of haloperidol and Ativan on several occasions and was able to calm some. She apparently had not been taking Depakote recently, though it is somewhat unclear. She received her standard 400 mg Abilify Maintena on 05/19/2018 and may have also been recommended to take Depakote before some increasing constantino, though it is unclear whether she did. The patient is currently sedated, but then will also wake up and be somewhat agitated and disorganized. She cannot give specific information as to this. Additional information obtained from the [facility] by [facility] indicates that she has recently had some increase in risk-taking behaviors. PAST PSYCHIATRIC HISTORY: Patient was first diagnosed with bipolar 1 disorder at the age of 18. She has had numerous previous psychiatric hospitalizations. She has been at [facility] and [facility] as well as our facility. She was last at our facility from 02/16/18 to 03/24/18. During that stay, she received ECT at the request of her outpatient team headed by Dr. Garcia. She responded well to the treatments, and they helped her come out of a near catatonic depression. It is unclear to me exactly what interval history occurred between 03/24/18 and this time, though obviously she has become manic since. She is followed by Dr. Garcia and her therapist is Sophia Abbott at [facility]. She has a history of taking primarily Abilify, but then Depakote when she is beginning to become mood elevated. Patient has had previous trials of Zyprexa, Saphris, Seroquel, Latuda, lithium, and Lamictal. She is unable to tolerate antidepressants, with predictable constantino. ALLERGIES: [place]. CURRENT MEDICATIONS: Abilify Maintena 400 mg every 21 days, last administered on 05/19/2018, and Depakote 1500 mg daily, though it is unclear whether she was taking this recently. PAST MEDICAL HISTORY: Unremarkable for any acute illnesses. She reportedly had knee replacement surgery on 05/11/18. SOCIAL HISTORY: Patient is , has no dependents. She is currently homeless, having lost her housing due to her recurrent constantino. She has a past history of alcohol use, at times heavy, though had reportedly not been drinking recently. She has been trying to quit smoking since September of this year. She uses no other substances. She has no other current legal issues. She has a brother, though has little other supports. FAMILY HISTORY: Patient has history of bipolar disorder on both sides of her family. ADMISSION LABORATORY: CBC shows a white count of 10.55, otherwise normal. Serum chemistries are normal. Urine drug screen is negative for all substances. Alcohol is less than detectable. MENTAL STATUS EXAMINATION: Revealed a disheveled female, lying on a gurney. She appeared sedated, but then snapped up, looked at me, and winked. She was minimally able to participate in the intake with the nurse, and I attempted to talk with her a bit later in her room, but she was sedated. She did recognize me and was able to converse in limited sentences. Her affect was sedated, though appeared to be somewhat labile also. Her mood was not stated. Her thought process was abbreviated, though it appeared disorganized. Her thought content was difficult to assess. Her orientation was difficult to assess. She did make meaningful eye contact and interacted appropriately. I could not assess thoughts of suicide, homicide, or violence at this time. IMPRESSION: Bipolar 1 disorder, most recent episode manic, severe, with psychosis. Chronic illness. Recurrent illness. Marginal supports. Homelessness. Patient is a 58-year-old female with a history of severe and recurrent bipolar 1 disorder. She presents at this time manic and quite out of control, brought in by police in restraints. We will admit to behavior health services inpatient unit on an M1 hold. Restart Depakote, as she has just received her Abilify Maintena 3 days ago. Estimated length of stay is 7-10 days. /[id number]/MODL MTDD
[2018-05-23] MEDS: DIVALPROEX ER 500 MG TAB PO SCH (12:04)
[2018-05-23] MEDS: NICOTINE POLACRILEX 2 MG GUM B PRN ×2 (16:47→18:31)
[2018-05-23] MEDS: traMADol 50 MG TAB PO PRN (18:57)
[2018-05-23] MEDS ORDERED: DIVALPROEX ER 500 MG TAB PO SCH (21:00)
[2018-05-23] MEDS ORDERED: LORazepam 2 MG/ML INJ IM PRN (22:17)
[2018-05-23] MEDS ORDERED: HALOPERIDOL LACT 5 MG/ML INJ IM PRN (22:17)
[2018-05-24] MEDS: traMADol 50 MG TAB PO PRN ×4 (01:00→21:28)
[2018-05-24] MEDS: NICOTINE POLACRILEX 2 MG GUM B PRN ×6 (02:18→21:29)
[2018-05-24] MEDS: LORazepam 0.5 MG TAB PO PRN ×3 (03:06→23:15)
[2018-05-24] MEDS: ACETAMINOPHEN 325 MG TAB PO PRN ×2 (03:07→23:14)
--- NOTE | 2018-05-24 07:23 | ASMTBHMTP ---
Master Treatment Plan Master Treatment Plan Answers: Impaired Reality for: Date: 05/23/2018 Diagnosis on Admission: BiPolar, Disorder Expected length of stay: 3-5 days Reason for admission: Notes: Per Report: Pt is a 58 yo, , unemployed, female with known history of severe, treatment resistant bipolar disorder, brought to [facility] ED by EMS and [employer] on an M1 hold in handcuffs for agitated aggressive behavior and constantino. Per M1, respondent was contacted in a friends apartment and refused to leave. Officers were advised that respondent was bipolar and was manic. Respondent appeared to not fully process officers requests. Respondent was shouting uncontrollably once out of the apartment and began to cry. Respondents speech was tangential and she was not making sense. Precipitant to her last admission was her [facility] prescriber Dr. Garcia referring her for admission to for ECT treatment under Dr. Jeffry Hill. Pt has been under Dr. Das care since December 2017 and a patient at [facility] since 2005. Pt is currently on [facility] Assertive Community Treatment Team. She has severe and treatment refractory Bipolar I Disorder. Despite numerous medication trials and combinations, pt continue to regularly cycle between severe and prolonged constantino and at times catatonic depression. She has had multiple psychiatric hospitalizations. Her severe illness has also led to several psychosocial challenges including homelessness, difficulty holding jobs, legal issues, and family discord. Her current medications are Abilify Maintena 400 mg IM q21 days (last administered 05/19/18, next 06/09/18); Depakote 500 mg in am and [address] Garcia discontinued Hydroxyzine as pt never started/took it. When she is manic, Depakote is typically added but because of side effects, she does not like to take this medication chronically. Past ineffictive and/or intolerable medications have included Zyprexa, Saphris, Seroquel, Latuda, [place], and Lamictal, even while on a mood stabilizer or antipsychotic medication. Pt has become manic if given an antidepressant medication (past antidepressant medications have included Wellbutrin, Paxil, and Cymbalta). She is extremely sensitive to medication changes. Per her most recent admission to , pt was manic and gravely disabled due to not taking her medications as prescribed. She was engaging in high risk behaviors, i.e...letting male strangers stay overnight with her; was trying to buy a truck to drive to [place], visiting [employer] to obtain loans. She lost her job because her constantino causes her to be irritable, argumentative and socially disinhibited. She risks legal involvement. Pt was administered emergency medications of Haldol 10 mg IM and Ativan 2 mg IM at 0433 and 0434 respectively Patient's stated presenting problems: Notes: "To finish out my therapy... on my toe and knee replacement Patient's goals for treatment: Notes: leaving today Patient's strengths: Notes: none Identify supports outside of hospital: Notes: yes, Skip [facility] Discharge criteria: Notes: Psychotic symptoms will be reduced or eliminated with return to baseline functioning in affect, thinking and behavior prior to discharge. Initial disposition plan/considerations: Notes: Leave with my friend Master Treatment Plan Required Signatures Psychiatrist signature: Answers: Psychiatrist: RN on-shift signature: Answers: RN: Patient signature: Answers: Patient: Date Signed: 05/24/2018 07:22 AM Electronically Signed By:Bobby Hughes
[2018-05-24] MEDS: DIVALPROEX ER 500 MG TAB PO SCH (08:34)
--- NOTE | 2018-05-24 16:38 | SOAPPROG ---
SOAP Progress Note Assessment/Plan: Assessment: 58 yo with h/o bipolar disorder, last admission on 3[facility] was in 01/2018 when she received ECT. She was admitted after neighbors called police b/c patient refused to leave their home. She was brought into ED in handcuffs, agitated and combative. Plan: 05/24/18 16:34 1. Patient did not sleep at all last night per staff. Today she has taken Ativan PRN and looks sleepy when talking to MD, her eyelids keep drooping, and she is slurring her words. 2. Patient less irritable than in ED and at admission. No agitation or aggressive behaviors. 3. Will start her on VPA 1,000mg ER at HS. Patient has ambivalent feelings about taking VPA. She has consented to take it, but is never compliant with it as outpatient. 4. Records indicate patient received Abilify Maintenna 400mg IM on 05/19/18. 5. Recent total left knee replacement. PT to consult. Dr. Hill ordered Ultram PRN for pain. 6. Wound care from PT. Subjective: Patient sitting in wheelchair in front of TV. When she gets up to walk, MD inquires how her knee feels. She says it's "OK" and pain is "not bad." She appears sleepy b/c she didn't sleep at all last night and has taken several doses of PRN Ativan to help with constantino/agitation. She is much less agitated and irritable today than yesterday. She denies any AH/VH, no SI/HI. Objective: Vital Signs Temp Pulse Resp BP Pulse Ox 36.8 C 90 14 106/79 94 05/23/18 07:58 05/24/18 06:00 05/24/18 06:00 05/24/18 06:00 05/24/18 06:00 MSE: Affect: Irritable, but more pleasant than yesterday Mood: "OK" TP: Linear TC: Denies any SI/HI Perception: Denies any AH/VH Insight/Judgment: Poor - Time Spent With Patient Time Spent With Patient: 15" - Pending Discharge Pending Discharge Within 24 Hours: No Pending Discharge Within 48 Hours: No ICD10 Worksheet Patient Problems: Problems Problem Status Onset Altered mental status Acute Bipolar 1 disorder Acute
[2018-05-24] MEDS: VALPROIC ACID 250 MG/5 ML UDCUP PO SCH ×2 (20:29→20:45)
[2018-05-25] MEDS: traMADol 50 MG TAB PO PRN ×3 (03:29→18:20)
[2018-05-25] MEDS ORDERED: VALPROIC ACID 250 MG/5 ML UDCUP PO SCH (09:00)
--- NOTE | 2018-05-25 13:24 | SOAPPROG ---
SOAP Progress Note Assessment/Plan: Assessment: Status post left TKA on 05/11/2018. She has been seen by Physical therapy, which is appropriate and should continue. I have asked nursing staff to obtain operative report discharge summary discharge plan from [facility]. I see no signs or symptoms of wound infection. Leg swelling and calf tenderness. I have ordered a stat Doppler ultrasound to rule out DVT. Canker sores. I have ordered triamcinolone in [facility], which should be continued until the lesions are completely healed. 05/25/18 13:22 Subjective: Asked to see patient about recent total knee arthroplasty and aftercare. She reports the surgeon was Dr. Nicolas at [facility]. She reports she was due for a postoperative follow-up 2 days ago but was unable to be there due to psychiatric hospitalization. She denies pain. Objective: Vital Signs Temp Pulse Resp BP Pulse Ox 36.8 C 90 14 106/79 94 05/23/18 07:58 05/24/18 06:00 05/24/18 06:00 05/24/18 06:00 05/24/18 06:00 Physical Exam - Physical Exam General Appearance: WD/WN, alert, no apparent distress EENT: other (Shallow circular 3 mm ulcer inside lower lip and slight ulceration to the right side of her tongue.) Skin: other (Left knee incision has been glued. Minimal erythema, minimal tenderness, no purulence. Drain site distal to incision with eschar, approximately 3 mm in diameter, minimal surrounding erythema.) Extremities: calf tenderness (Left lower extremity), swelling (Left lower extremity [id number]) ICD10 Worksheet Patient Problems: Problems Problem Status Onset Altered mental status Acute Bipolar 1 disorder Acute
--- NOTE | 2018-05-25 16:01 | SOAPPROG ---
SOAP Progress Note Assessment/Plan: Assessment: 58 yo with h/o bipolar disorder, last admission on 3N was in 01/2018 when she received ECT. She was admitted after neighbors called police b/c patient refused to leave their home. She was brought into ED in handcuffs, agitated and combative. Plan: 05/24/18 16:34 1. Patient did not sleep at all last night per staff. Today she has taken Ativan PRN and looks sleepy when talking to MD, her eyelids keep drooping, and she is slurring her words. 2. Patient less irritable than in ED and at admission. No agitation or aggressive behaviors. 3. Will start her on VPA 1,000mg ER at . Patient has ambivalent feelings about taking VPA. She has consented to take it, but is never compliant with it as outpatient. 4. Records indicate patient received Abilify Maintenna 400mg IM on 05/19/18. 5. Recent total left knee replacement. PT to consult. Dr. Hill ordered Ultram PRN for pain. 6. Wound care from PT. PLAN: 05/25/18 15:57 1. Patient seen by Dr. Faria today c/o calf pain. Sent to ED for Doppler US which showed no evidence of DVT. Patient returned to unit. 2. Patient refused VPA last night and received Haldol IM as emergency medication. Will change VPA from liquid to tablets which patient has taken during previous admission. 3. Patient slept 6.5 hrs last night which was first sleep she had during this admission. 4. Patient still very labile and irritable, no physical aggression, but threatening staff. Will continue Day #2 of EMEDS. Patient was extremely agitated and aggressive in ED. She was brought in by police in handcuffs d/t combativeness. 5. [facility] today Subjective: Patient sitting in wheelchair. Dr. Faria has requested patient be sent to ED for U/S to r/o DVT. When patient returned from ED, she was yelling at staff and making verbal threats, but no physical aggression. U/S did not reveal any signs of DVT. Objective: Vital Signs Temp Pulse Resp BP Pulse Ox 36.8 C 90 14 106/79 94 05/23/18 07:58 05/24/18 06:00 05/24/18 06:00 05/24/18 06:00 05/24/18 06:00 MSE: Affect: Irritable, angry, hostile at times Mood: Angry TP: Tangential TC : Denies any SI/HI Insight/Judgment: Impaired - Time Spent With Patient Time Spent With Patient: 15" - Pending Discharge Pending Discharge Within 24 Hours: No Pending Discharge Within 48 Hours: No ICD10 Worksheet Patient Problems: Problems Problem Status Onset Altered mental status Acute Bipolar 1 disorder Acute
[2018-05-25] MEDS ORDERED: LORazepam 2 MG/ML INJ IM PRN (16:03)
[2018-05-25] MEDS ORDERED: HALOPERIDOL LACT 5 MG/ML INJ IM PRN (16:03)
[2018-05-25] MEDS: ACETAMINOPHEN 325 MG TAB PO PRN (18:21)
[2018-05-25] MEDS: TRIAMCINOLONE 0.1% 5GM CREAM DT SCH (18:21)
[2018-05-25] MEDS: DIVALPROEX ER 500 MG TAB PO SCH (20:59)
[2018-05-26] MEDS: traMADol 50 MG TAB PO PRN ×4 (00:14→20:22)
[2018-05-26] MEDS: LORazepam 0.5 MG TAB PO PRN ×3 (00:15→23:29)
[2018-05-26] MEDS: ACETAMINOPHEN 325 MG TAB PO PRN ×3 (02:22→23:28)
[2018-05-26] MEDS: NICOTINE POLACRILEX 2 MG GUM B PRN ×2 (05:11→09:23)
--- NOTE | 2018-05-26 08:05 | ASMTCMCOM ---
CM Note CM Note Notes: Client remains mostly angry on the unit towards staff and peers. Affect is guarded and annoyed. Client will most likely be on the unit through the weekend. CC will call [facility] for follow up appointments. Date Signed: 05/26/2018 08:04 AM Electronically Signed By:Bobby Hughes
[2018-05-26] MEDS: TRIAMCINOLONE 0.1% 5GM CREAM DT SCH ×3 (09:23→20:09)
[2018-05-26] MEDS ORDERED: VANCOMYCIN 125 MG/2.5 ML UDL PO SCH (12:00)
--- NOTE | 2018-05-26 14:10 | SOAPPROG ---
SOAP Progress Note Assessment/Plan: Assessment: Status post left TKA on 05/11/2018. She has been seen by Physical therapy, which is appropriate and should continue. I have asked nursing staff to obtain operative report discharge summary discharge plan from [facility]. I see no signs or symptoms of wound infection. Leg swelling and calf tenderness. I have ordered a stat Doppler ultrasound to rule out DVT. Canker sores. I have ordered triamcinolone in [facility], which should be continued until the lesions are completely healed. 05/25/18 13:22 Positive test for Clostridium difficile. No diarrhea. This was discussed with infectious disease surgical product sales consultant Dr. Chris Johnson. With no diarrhea she does not have C difficile colitis. There is no indication to treat and no need for isolation. 05/26/18 14:04 Subjective: Report of positive C. difficile stool test as an outpatient prior to admission. Per report, she was taking an antibiotic for mouth lesions, had a fever, and had diarrhea. She denies fever abdominal pain or diarrhea currently. Objective: Vital Signs Temp Pulse Resp BP Pulse Ox 36.5 C 86 14 117/58 L 94 05/26/18 06:00 05/26/18 06:00 05/26/18 06:00 05/26/18 06:00 05/26/18 06:00 Physical Exam - Physical Exam General Appearance: WD/WN, alert, no apparent distress Skin: normal color, warm/dry ICD10 Worksheet Patient Problems: Problems Problem Status Onset Altered mental status Acute Bipolar 1 disorder Acute
--- NOTE | 2018-05-26 15:25 | SOAPPROG ---
SOAP Progress Note Assessment/Plan: Assessment: 58 yo with h/o bipolar disorder, last admission on 3N was in 01/2018 when she received ECT. She was admitted after neighbors called police b/c patient refused to leave their home. She was brought into ED in handcuffs, agitated and combative. Plan: 05/24/18 16:34 1. Patient did not sleep at all last night per staff. Today she has taken Ativan PRN and looks sleepy when talking to MD, her eyelids keep drooping, and she is slurring her words. 2. Patient less irritable than in ED and at admission. No agitation or aggressive behaviors. 3. Will start her on VPA 1,000mg ER at HS. Patient has ambivalent feelings about taking VPA. She has consented to take it, but is never compliant with it as outpatient. 4. Records indicate patient received Abilify Maintenna 400mg IM on 05/19/18. 5. Recent total left knee replacement. PT to consult. Dr. Hill ordered Ultram PRN for pain. 6. Wound care from PT. PLAN: 05/25/18 15:57 1. Patient seen by Dr. Faria today c/o calf pain. Sent to ED for Doppler US which showed no evidence of DVT. Patient returned to unit. 2. Patient refused VPA last night and received Haldol IM as emergency medication. Will change VPA from liquid to tablets which patient has taken during previous admission. 3. Patient slept 6.5 hrs last night which was first sleep she had during this admission. 4. Patient still very labile and irritable, no physical aggression, but threatening staff. Will continue Day #2 of EMEDS. Patient was extremely agitated and aggressive in ED. She was brought in by police in handcuffs d/t combativeness. 5. STC today PLAN: 05/26/18 15:22 1. Patient sitting in wheelchair with left leg elevated s/p left TKA on 05/11. Reports occasional pain, had just taken Tramadol. Dr. Faria noted some calf tenderness and swelling persists. Had U/S to r/o DVT yesterday. 2. Patient took VPA last night. 3. Staff report patient only slept 15 min last night, however, patient says she slept "great." 4. Patient noted to have positive c. diff. Dr. Faria consulted ID, Dr. Johnson, who did not recommend any contact precautions as patient is not symptomatic. 5. STC Subjective: Patient sitting in wheelchair with left leg elevated. Patient is extremely sedated, can hardly keep her eyes open. MD commented on this, and patient said she wasn't tired. MD inquired about sleep, patient said she slept "great" last night. However, staff report she only slept 15 minutes. Patient denied there was anything keeping her awake at night. She denied AH/VH, paranoid delusions, intrusive thoughts, nightmares. Patient does not present with decreased need for sleep, as she is clearly nodding off in her wheelchair throughout the day. She also does not have increased goal-directed activity, pressured speech and denies racing thoughts. Without these symptoms, it's not possible for patient to meet criteria for constantino. She has received several doses of Haldol over the past several days for agitation and aggression. It's possible that the antipsychotic has reduced the intensity of some of her symptoms (it has clearly improved her agitation and irritability). Will continue to monitor and observe patient. Dr. Garcia, her [facility] psych MD, has treated the patient for years with combination of antipsychotics (currently she is on Abilify Maintenna POSEY) and VPA. Dr. Garcia insists this combination keeps the patient's mood stable and reduces episodes of anger, irritability. Objective: Vital Signs Temp Pulse Resp BP Pulse Ox 36.5 C 86 14 117/58 L 94 05/26/18 06:00 05/26/18 06:00 05/26/18 06:00 05/26/18 06:00 05/26/18 06:00 MSE: Affect: Calmer, less irritable Mood: "Great" TP: Tangential TC: Denies any SI/HI Perception: Denies any AH/VH Insight/Judgment: Poor - Time Spent With Patient Time Spent With Patient: 20" - Pending Discharge Pending Discharge Within 24 Hours: No Pending Discharge Within 48 Hours: No ICD10 Worksheet Patient Problems: Problems Problem Status Onset Altered mental status Acute Bipolar 1 disorder Acute
[2018-05-26] MEDS: DIVALPROEX ER 500 MG TAB PO SCH (20:08)
[2018-05-27] MEDS: traMADol 50 MG TAB PO PRN ×4 (03:15→22:41)
[2018-05-27] MEDS: ACETAMINOPHEN 325 MG TAB PO PRN (07:36)
[2018-05-27] MEDS: LORazepam 0.5 MG TAB PO PRN ×2 (07:36→23:32)
[2018-05-27] MEDS: TRIAMCINOLONE 0.1% 5GM CREAM DT SCH ×3 (12:24→18:54)
[2018-05-27] MEDS: NICOTINE POLACRILEX 2 MG GUM B PRN ×2 (13:14→18:56)
--- NOTE | 2018-05-27 16:16 | ASMTCMCOM ---
CM Note CM Note Notes: Pt. reports feeling "good". Pt. stated she slept "good" adding she fell asleep at 9:30pm and woke up at 6:30am. Staff report pt. sleeping 4 hours. Pt. reports eating well and attending groups "all day". Pt. stated her physical therapy was "pretty good". Pt. stated her knee feels "good". Pt. denied SI, HI, AVH and paranoia. Pt. asked when she can leave and CC informed her she is on a STC. Pt. stated "don't know why they did that", and "like to stand my ground when I'm corrent". Pt. presents as mostly alert, eyes closed, somewhat confused at times, less demanding compared to previous days, softer speech at tiems, and mostly cooperative. Staff report pt. sleeping 4 hours and being medication compliant. Date Signed: 05/27/2018 04:16 PM Electronically Signed By:Aleta Perez
--- NOTE | 2018-05-27 18:34 | SOAPPROG ---
SOAP Progress Note Assessment/Plan: Assessment: 58 yo with h/o bipolar disorder, last admission on 3N was in 01/2018 when she received ECT. She was admitted after neighbors called police b/c patient refused to leave their home. She was brought into ED in handcuffs, agitated and combative. Plan: 05/24/18 16:34 1. Patient did not sleep at all last night per staff. Today she has taken Ativan PRN and looks sleepy when talking to MD, her eyelids keep drooping, and she is slurring her words. 2. Patient less irritable than in ED and at admission. No agitation or aggressive behaviors. 3. Will start her on VPA 1,000mg ER at HS. Patient has ambivalent feelings about taking VPA. She has consented to take it, but is never compliant with it as outpatient. 4. Records indicate patient received Abilify Maintenna 400mg IM on 05/19/18. 5. Recent total left knee replacement. PT to consult. Dr. Hill ordered Ultram PRN for pain. 6. Wound care from PT. PLAN: 05/25/18 15:57 1. Patient seen by Dr. Faria today c/o calf pain. Sent to ED for Doppler US which showed no evidence of DVT. Patient returned to unit. 2. Patient refused VPA last night and received Haldol IM as emergency medication. Will change VPA from liquid to tablets which patient has taken during previous admission. 3. Patient slept 6.5 hrs last night which was first sleep she had during this admission. 4. Patient still very labile and irritable, no physical aggression, but threatening staff. Will continue Day #2 of EMEDS. Patient was extremely agitated and aggressive in ED. She was brought in by police in handcuffs d/t combativeness. 5. STC today PLAN: 05/26/18 15:22 1. Patient sitting in wheelchair with left leg elevated s/p left TKA on 05/11. Reports occasional pain, had just taken Tramadol. Dr. Faria noted some calf tenderness and swelling persists. Had U/S to r/o DVT yesterday. 2. Patient took VPA last night. 3. Staff report patient only slept 15 min last night, however, patient says she slept "great." 4. Patient noted to have positive c. diff. Dr. Faria consulted ID, Dr. Johnson, who did not recommend any contact precautions as patient is not symptomatic. 5. C PLAN: 05/27/18 18:30 1. Patient is using walker per PT recommendations instead of wheelchair. 2. Patient still very drowsy, but slept 4.5 hrs last night. When staff suggest she go lay down, patient says, "I'm not tired." 3. Patient has been compliant with VPA x 48 hrs. 4. Patient says she does not want to return to her BOC's house after discharge. Says she has friends that will let her stay with them. 5. Patient reports she wants a new psych MD, which she said both of her last 2 admissions. 6. Need collateral from CM, Sophy Guaman, at [facility] about whether patient has alternative housing options. 7. [facility] Subjective: Patient sitting in chair with icepack on her knee. She is emotional and tearful at times talking about her MOC's in 03/2018. MD isn't sure whether this actually happened or not. She claims she had been staying with her BOC who was driving her to her appointments. She says her MOC on 03/25/18 which was "very difficult" for her and since then she and her BOC haven't been getting along. She claims it was her BOC who called police b/c she refused to come back to his house after visiting a friend. She denies that her friends wanted her to leave. She became combative with police b/c she "doesn't get along with police. " Patient says she doesn't want to return to [facility]'s house after discharge. She reports [facility] filled out an application [facility] in [place] "behind the [address] She claims she can afford a 1 bedroom there, but won't know until Jun 06 if she got approved. Until then, patient says she can stay at friend's house, but she hasn't called anyone to confirm that. Objective: Vital Signs Temp Pulse Resp BP Pulse Ox 37.9 C 107 H 16 117/56 L 92 05/27/18 06:00 05/27/18 06:00 05/27/18 06:00 05/27/18 06:00 05/27/18 06:00 MSE: Affect: Tearful, emotional Mood: "Disappointed" TP: Tangential TC: Denies any SI/HI Insight/Judgment: Poor - Time Spent With Patient Time Spent With Patient: 25" - Pending Discharge Pending Discharge Within 24 Hours: No Pending Discharge Within 48 Hours: No ICD10 Worksheet Patient Problems: Problems Problem Status Onset Altered mental status Acute Bipolar 1 disorder Acute
[2018-05-27] MEDS: DIVALPROEX ER 500 MG TAB PO SCH (18:54)
[2018-05-28] MEDS: OLANZapine DISINTEGR 10 MG TAB PO PRN (00:26)
[2018-05-28] MEDS: ACETAMINOPHEN 325 MG TAB PO PRN ×3 (01:20→17:30)
[2018-05-28] MEDS: traMADol 50 MG TAB PO PRN ×3 (05:25→18:25)
[2018-05-28] MEDS: TRIAMCINOLONE 0.1% 5GM CREAM DT SCH ×3 (06:03→20:33)
[2018-05-28] MEDS: NICOTINE POLACRILEX 2 MG GUM B PRN ×2 (07:22→12:44)
[2018-05-28] MEDS: LORazepam 0.5 MG TAB PO PRN ×2 (07:22→17:29)
--- NOTE | 2018-05-28 15:17 | ASMTCMCOM ---
CM Note CM Note Notes: Pt. reports feeling "pretty good". Pt. stated she slept "good". Pt. reports eating well and attending groups. Pt. stated her knee has "been really rough", adding she is annoyed that a staff member was late getting her her pain medication. CC was not able to understand pt, as she was slurring her words and falling asleep. Pt. reports having a therapy appointment with "Linda" on Tuesday at 1:30. Pt. stated she is currently homeless. Pt. stated she plans to call a friend to see if she can stay with them. Pt. stated she doesn't remember her friend's name. Pt. stated she doesn't want to stay with her brother. Pt. denied SI, HI, AVH and paranoia. Pt. presents as sedated, eye closed, falling asleep, slurring her words, and mostly cooperative. Staff report pt. sleeping 3.5 hours and being medication compliant. Date Signed: 05/28/2018 03:16 PM Electronically Signed By:Aleta Perez
--- NOTE | 2018-05-28 16:08 | SOAPPROG ---
SOAP Progress Note Assessment/Plan: Assessment: 58 yo with h/o bipolar disorder, last admission on 3N was in 01/2018 when she received ECT. She was admitted after neighbors called police b/c patient refused to leave their home. She was brought into ED in handcuffs, agitated and combative. Plan: 05/24/18 16:34 1. Patient did not sleep at all last night per staff. Today she has taken Ativan PRN and looks sleepy when talking to MD, her eyelids keep drooping, and she is slurring her words. 2. Patient less irritable than in ED and at admission. No agitation or aggressive behaviors. 3. Will start her on VPA 1,000mg ER at HS. Patient has ambivalent feelings about taking VPA. She has consented to take it, but is never compliant with it as outpatient. 4. Records indicate patient received Abilify Maintenna 400mg IM on 05/19/18. 5. Recent total left knee replacement. PT to consult. Dr. Hill ordered Ultram PRN for pain. 6. Wound care from PT. PLAN: 05/25/18 15:57 1. Patient seen by Dr. Faria today c/o calf pain. Sent to ED for Doppler US which showed no evidence of DVT. Patient returned to unit. 2. Patient refused VPA last night and received Haldol IM as emergency medication. Will change VPA from liquid to tablets which patient has taken during previous admission. 3. Patient slept 6.5 hrs last night which was first sleep she had during this admission. 4. Patient still very labile and irritable, no physical aggression, but threatening staff. Will continue Day #2 of EMEDS. Patient was extremely agitated and aggressive in ED. She was brought in by police in handcuffs d/t combativeness. 5. STC today PLAN: 05/26/18 15:22 1. Patient sitting in wheelchair with left leg elevated s/p left TKA on 05/11. Reports occasional pain, had just taken Tramadol. Dr. Faria noted some calf tenderness and swelling persists. Had U/S to r/o DVT yesterday. 2. Patient took VPA last night. 3. Staff report patient only slept 15 min last night, however, patient says she slept "great." 4. Patient noted to have positive c. diff. Dr. Faria consulted ID, Dr. Johnson, who did not recommend any contact precautions as patient is not symptomatic. 5. [facility] PLAN: 05/27/18 18:30 1. Patient is using walker per PT recommendations instead of wheelchair. 2. Patient still very drowsy, but slept 4.5 hrs last night. When staff suggest she go lay down, patient says, "I'm not tired." 3. Patient has been compliant with VPA x 48 hrs. 4. Patient says she does not want to return to her BOC's house after discharge. Says she has friends that will let her stay with them. 5. Patient reports she wants a new psych MD, which she said both of her last 2 admissions. 6. Need collateral from CM, Sophy Guaman, at [facility] about whether patient has alternative housing options. 7. [facility] PLAN: 05/28/18 16:04 1. Patient presents more confused today. She still c/o pain in left leg and still has swelling in that leg from TKA. Patient does not have fever. Hospitalist agreed to order labs (CBC, etc) in AM and will f/u with patient tomorrow for possible post-op infxn. 2. Patient slept 3.5 hrs last night. 3. Patient has not been consistent with surgeon's recommendations to keep leg elevated and use ice for swelling. 4. CC to contact CM at [facility], Sophy Guaman, about housing options and to make f/ u appts w/ Dr. Garcia and other providers. 5. STC Subjective: Patient appears more confused and disoriented today. This may be d/t number of factors including lack of sleep, post-op condition and possible infxn. Hospitalist ordered CBC to r/o infxn and will evaluate patient tomorrow. Patient is not febrile and wound site from left TKA is intact, but there is still a lot of swelling. Patient dose not exhibit any aggressive or unsafe behaviors. She has been irritable since admission, but does not exhibit any signs of constantino or psychosis. She denies any SI/HI. Objective: Vital Signs Temp Pulse Resp BP Pulse Ox 37.0 C 83 16 108/70 91 L 05/28/18 06:00 05/28/18 06:00 05/28/18 06:00 05/28/18 06:00 05/28/18 06:00 MSE: Affect: Labile Mood: "OK" TP: Confused, disorganized TC: Denies any SI/ HI Insight/Judgment: Poor - Time Spent With Patient Time Spent With Patient: 15" - Pending Discharge Pending Discharge Within 24 Hours: No Pending Discharge Within 48 Hours: No ICD10 Worksheet Patient Problems: Problems Problem Status Onset Altered mental status Acute Bipolar 1 disorder Acute
[2018-05-28] MEDS: DIVALPROEX ER 500 MG TAB PO SCH (21:16)
[2018-05-29] MEDS: traMADol 50 MG TAB PO PRN ×3 (02:52→18:12)
[2018-05-29] MEDS: OLANZapine DISINTEGR 10 MG TAB PO PRN ×2 (02:52→23:23)
[2018-05-29] MEDS: LORazepam 0.5 MG TAB PO PRN ×4 (02:54→23:21)
[2018-05-29 07:59] LABS: PLATELET COUNT 445 10^3/uL (150-400)
[2018-05-29] MEDS: ACETAMINOPHEN 325 MG TAB PO PRN ×4 (08:00→23:21)
[2018-05-29] MEDS: NICOTINE POLACRILEX 2 MG GUM B PRN ×2 (09:42→19:20)
[2018-05-29] MEDS: TRIAMCINOLONE 0.1% 5GM CREAM DT SCH ×3 (10:50→21:30)
--- NOTE | 2018-05-29 13:20 | SOAPPROG ---
[facility] Progress Note Assessment/Plan: Assessment: Plan: 05/29/18 13:21 Mood: Gradual improvement. CCM. Subjective: Pt seen, discussed with staff, chart reviewed. She continues to exhibit labile mood and impulsive behaviors. Compliant with meds. Staff notes pt seemed calmer yesterday evening after having a "rough weekend." Slept >8 hours for the first time. She reports feeling "pretty good" though begins crying suddenly after that. Reported pain in her surgical knee Tuesday night when she was particularly agitated. CBC was drawn and is normal. She has no referable c/o's today; walking in halls without difficulty or discomfort. Compliant with meds. Objective: Vital Signs Temp Pulse Resp BP Pulse Ox 37.1 C 88 16 111/74 93 05/29/18 06:00 05/29/18 06:00 05/29/18 06:00 05/29/18 06:00 05/29/18 06:00 Laboratory Results 05/29/18 06:20 05/29/18 06:20 MSE: Calm, coop. Affect is bright, labile. Mood is "good." TP tangential. TC reveals some grandiose thoughts. A&Ox4. - Time Spent With Patient Time Spent With Patient: 15" ICD10 Worksheet Patient Problems: Problems Problem Status Onset Altered mental status Acute Bipolar 1 disorder Acute
[2018-05-29] MEDS: DIVALPROEX ER 500 MG TAB PO SCH (18:04)
[2018-05-29] MEDS: DIVALPROEX ER 250 MG TAB PO SCH (18:21)
[2018-05-29] MEDS ORDERED: DIVALPROEX ER 250 MG TAB PO ONE (18:30)
[2018-05-29] MEDS ORDERED: DIVALPROEX ER 250 MG TAB PO SCH (21:00)
[2018-05-30] MEDS: traMADol 50 MG TAB PO PRN ×4 (00:15→19:51)
[2018-05-30] MEDS: TRIAMCINOLONE 0.1% 5GM CREAM DT SCH ×3 (08:32→20:01)
[2018-05-30] MEDS: LORazepam 0.5 MG TAB PO PRN ×2 (12:47→19:14)
[2018-05-30] MEDS: NICOTINE POLACRILEX 2 MG GUM B PRN (14:51)
--- NOTE | 2018-05-30 16:53 | SOAPPROG ---
[facility] Progress Note Assessment/Plan: Assessment: Plan: 05/29/18 13:21 Mood: Gradual improvement. CCM. 05/30/18 16:54 Mood: Continued improvement. CCM. Subjective: Pt seen, discussed with staff. Discussed her plan of care and reviewed the circumstances surrounding her admission as she states she doesn't know either. She insists she isn't, nor has she recently been, manic. She believes, "I'm just upset because my brother is such a danya." She goes on about how mean he is to her and how much she has hated living with him. She describes herself as "depressed, not manic." She states she has "been depressed since I started ECT. " She describes a belief that "ECT made me depressed. It ruined my brain." Later, she states, "ECT was the best thing that I ever did. It made me happy for the first time in my life and now I'm perfect." Remains compliant withe meds. VPA level = 78.8. Knee pain has largely resolved , though she states she was not given her pain meds on time last night causing her to not sleep well. Slept only 4.5 hours. Staff notes patient's affect is more stable, less irritable. Objective: Vital Signs Temp Pulse Resp BP Pulse Ox 36.6 C 108 H 16 125/69 H 94 05/30/18 06:00 05/30/18 06:00 05/30/18 06:00 05/30/18 06:00 05/30/18 06:00 Laboratory Results 05/29/18 06:20 05/29/18 06:20 MSE: Calm, coop. Affect is expansive, stable. Mood is "normal." TP tangential. TC reveals possible paranoia. - Time Spent With Patient Time Spent With Patient: 25" ICD10 Worksheet Patient Problems: Problems Problem Status Onset Altered mental status Acute Bipolar 1 disorder Acute
[2018-05-30] MEDS: DIVALPROEX ER 250 MG TAB PO SCH (19:07)
[2018-05-30] MEDS: ACETAMINOPHEN 325 MG TAB PO PRN (19:13)
[2018-05-31] MEDS: traMADol 50 MG TAB PO PRN ×4 (02:19→22:49)
[2018-05-31] MEDS: NICOTINE POLACRILEX 2 MG GUM B PRN ×2 (02:19→09:33)
[2018-05-31] MEDS: TRIAMCINOLONE 0.1% 5GM CREAM DT SCH ×4 (08:37→19:41)
[2018-05-31] MEDS: ACETAMINOPHEN 325 MG TAB PO PRN ×2 (12:40→23:26)
[2018-05-31] MEDS: LORazepam 0.5 MG TAB PO PRN ×2 (12:40→23:25)
--- NOTE | 2018-05-31 13:45 | SOAPPROG ---
SOAP Progress Note Assessment/Plan: Assessment: Plan: 05/29/18 13:21 Mood: Gradual improvement. CCM. 05/30/18 16:54 Mood: Continued improvement. CCM. 05/31/18 13:52 Mood: Continued improvement with some continued lability. I do not see the delirium myself, but will remain vigilant. CCM. Subjective: Pt seen, discussed with staff. Case reviewed with Dr. Garcia at [facility]'s. She voices her team's concern that Tamela is "just not right." They are concerned that she may be delirious. I reviewed the medical evaluations she has had so far and informed her that she has been afebrile without a referable c/o to indicate an origin except an accumulation of post-surgical physiological burden compounded by constantino and possibly pain meds. Pt was much more lucid today. Able to converse appropriately with Treatment Team in meeting for 20". She laughs and jokes, but continues to cry at times. She remains adamant that she will not go to her brother's home after d/c. Objective: Vital Signs Temp Pulse Resp BP Pulse Ox 36.6 C 112 H 16 110/54 L 92 05/31/18 06:00 05/31/18 06:00 05/31/18 06:00 05/31/18 06:00 05/31/18 06:00 Laboratory Results 05/29/18 06:20 05/29/18 06:20 MSE: Calm, coop. Affect generally bright, though tearful at times. Attentive to conversation, able to actively participate in discussion. A&Ox4. TP generally linear. TC reveals no overt psychosis. - Time Spent With Patient Time Spent With Patient: 25" ICD10 Worksheet Patient Problems: Problems Problem Status Onset Altered mental status Acute Bipolar 1 disorder Acute
--- NOTE | 2018-05-31 15:08 | ASMTCMCOM ---
CM Note CM Note Notes: CC contacted BOC (Lars) at ; who noted that I "am going to take a break from her right now." "I can't take anymore of her problems at this time, it's not fair for me or my and kid." Brother feels he has done all he can for client and will not be part of her discharge plan/family meeting at this time.* Date Signed: 05/31/2018 03:04 PM Electronically Signed By:Bobby Hughes
--- NOTE | 2018-05-31 16:05 | SOAPPROG ---
SOAP Progress Note Assessment/Plan: Assessment: Status post left TKA on 05/11/2018. She has been seen by Physical therapy, which is appropriate and should continue. I have asked nursing staff to obtain operative report discharge summary discharge plan from [facility]. I see no signs or symptoms of wound infection. Leg swelling and calf tenderness. I have ordered a stat Doppler ultrasound to rule out DVT. Canker sores. I have ordered triamcinolone in [place], which should be continued until the lesions are completely healed. 05/25/18 13:22 Positive test for Clostridium difficile. No diarrhea. This was discussed with infectious disease professional benefits sales consultant Dr. Chris Johnson. With no diarrhea she does not have C difficile colitis. There is no indication to treat and no need for isolation. 05/26/18 14:04 Bilateral lower extremity edema. DVT was ruled out on 05/25/2018 with ultrasound of the left calf; she has had no change in left calf tenderness. Presence of tachycardia raises the suspicion of pulmonary embolus. She reports a previous chest CT last year evaluating for pulmonary embolus which was negative. TKA was done on 05/11/2018, 19 days ago. She has not been on anticoagulation since admission to inpatient [facility] 9 days ago. Will check CMP to evaluate for other sources of edema such as renal or hepatic issues. Will check a D-dimer. If D-dimer is negative will not pursue evaluation for pulmonary embolus. 05/31/18 16:01 CMP showed normal renal function and electrolytes. Albumin was slightly low but not enough to cause anasarca. D-dimer was markedly elevated. She was sent for chest CT which ruled out pulmonary embolus. She had a normal TSH in February 2018. A/P Edema of unclear etiology. Will not pursue any further diagnostic workup. Per her request, initiating spironolactone at 25 mg p. O. Q.day. She can discontinue when her edema resolves, and may resume on an as needed basis. 06/01/18 14:08 Subjective: Asked to see patient about bilateral leg swelling. She reports that has developed over several days. She denies chest pain, cough or shortness of breath. She reports she had edema when she was and was treated with spironolactone. She has no history of blood clots. Objective: Vital Signs Temp Pulse Resp BP Pulse Ox 36.6 C 112 H 16 110/54 L 92 05/31/18 06:00 05/31/18 06:00 05/31/18 06:00 05/31/18 06:00 05/31/18 06:00 Laboratory Results 05/29/18 06:20 05/29/18 06:20 Physical Exam - Physical Exam General Appearance: WD/WN, alert, no apparent distress Respiratory: normal breath sounds, No crackles, No rhonchi, No wheezing Cardiac/Chest: regular rate, rhythm, edema (1+ bilateral lower extremities), No JVD, No diastolic murmur, No systolic murmur Skin: normal color, warm/dry Extremities: calf tenderness (Left lower extremity) ICD10 Worksheet Patient Problems: Problems Problem Status Onset Altered mental status Acute Bipolar 1 disorder Acute
[2018-05-31] MEDS ORDERED: IOPAMIDOL (ISOVUE 370) 100 ML BTL IV ONE (19:29)
[2018-05-31] MEDS: DIVALPROEX ER 250 MG TAB PO SCH (21:07)
[2018-06-01] MEDS: OLANZapine DISINTEGR 10 MG TAB PO PRN (03:04)
[2018-06-01] MEDS: traMADol 50 MG TAB PO PRN ×3 (05:58→20:10)
[2018-06-01] MEDS: NICOTINE POLACRILEX 2 MG GUM B PRN ×4 (07:11→16:04)
[2018-06-01] MEDS: TRIAMCINOLONE 0.1% 5GM CREAM DT SCH ×4 (10:44→17:50)
[2018-06-01] MEDS: ACETAMINOPHEN 325 MG TAB PO PRN (10:57)
[2018-06-01] MEDS: LORazepam 0.5 MG TAB PO PRN ×2 (10:58→18:30)
[2018-06-01] MEDS ORDERED: DIVALPROEX ER 250 MG TAB PO SCH (11:37)
--- NOTE | 2018-06-01 14:37 | CPEKG ---
Test Reason : OPEN Blood Pressure : / mmHG Vent. Rate : 092 BPM Atrial Rate : 092 BPM P-R Int : 160 ms QRS Dur : 084 ms QT Int : 348 ms P-R-T Axes : 051 029 025 degrees QTc Int : 431 ms SINUS RHYTHM Confirmed by Julio Renee ([id number]) on 06/01/2018 2:37:20 PM Referred By: Confirmed By:Julio Renee
[2018-06-01] MEDS: SPIRONOLACTONE 25 MG TAB PO SCH (15:21)
--- NOTE | 2018-06-01 16:46 | SOAPPROG ---
SOAP Progress Note Assessment/Plan: Assessment: Plan: 05/29/18 13:21 Mood: Gradual improvement. CCM. 05/30/18 16:54 Mood: Continued improvement. CCM. 05/31/18 13:52 Mood: Continued improvement with some continued lability. I do not see the delirium myself, but will remain vigilant. [facility]. 06/01/18 16:47 Mood: Looks a lot better today. Will increase VPA to 1500mg, monitor. Subjective: Pt seen, discussed with staff. Reports feeling "a lot better." Continues to sleep poorly. Asks to increase VPA to 1500mg, "That's the dose Dr. Garcia gives me when I'm manic." Thinking appears clearer today, less confusion. Events of last evening reviewed. Medical w/u noted. Dr Faria wrote for spironolactone for edema. Objective: Vital Signs Temp Pulse Resp BP Pulse Ox 36.5 C 95 16 119/74 94 06/01/18 06:00 06/01/18 06:00 06/01/18 06:00 06/01/18 06:00 06/01/18 06:00 Laboratory Results 05/29/18 06:20 05/31/18 16:25 MSE: Calm, coop. Affect is euthymic, stable, not tearful. Mood is "good." TP is linear, no confusion noted. TC reveals no psychosis. A&Ox4. A/C good. - Time Spent With Patient Time Spent With Patient: 25" ICD10 Worksheet Patient Problems: Problems Problem Status Onset Altered mental status Acute Bipolar 1 disorder Acute
[2018-06-01] MEDS ORDERED: DIVALPROEX ER 500 MG TAB PO SCH (21:00)
[2018-06-02] MEDS: traMADol 50 MG TAB PO PRN ×3 (05:33→19:06)
[2018-06-02] MEDS: NICOTINE POLACRILEX 2 MG GUM B PRN ×5 (06:09→20:17)
[2018-06-02] MEDS: LORazepam 0.5 MG TAB PO PRN ×3 (08:38→21:51)
[2018-06-02] MEDS: ACETAMINOPHEN 325 MG TAB PO PRN ×3 (08:38→18:54)
[2018-06-02] MEDS: SPIRONOLACTONE 25 MG TAB PO SCH (08:38)
[2018-06-02] MEDS: TRIAMCINOLONE 0.1% 5GM CREAM DT SCH (08:44)
[2018-06-02] MEDS: DIVALPROEX ER 250 MG TAB PO SCH (20:48)
[2018-06-03] MEDS: traMADol 50 MG TAB PO PRN ×4 (00:26→19:44)
[2018-06-03] MEDS: ACETAMINOPHEN 325 MG TAB PO PRN ×3 (01:37→23:46)
[2018-06-03] MEDS: LORazepam 0.5 MG TAB PO PRN ×4 (01:38→23:47)
[2018-06-03] MEDS: NICOTINE POLACRILEX 2 MG GUM B PRN ×2 (08:38→14:27)
[2018-06-03] MEDS: SPIRONOLACTONE 25 MG TAB PO SCH (08:38)
--- NOTE | 2018-06-03 14:39 | ASMTCMCOM ---
CM Note CM Note Notes: Pt. reports being "in pain". Pt. stated she take two ativan and two tylenol to help with the pain, adding the ativan "calms me down". Pt. stated she has "pretty high pain tolerance". Pt. stated she slept 6.5 hours and is eating well. Pt. reports she took depakote while staying at her brothers, adding she wasn't sleeping, but lied and told her brother she was sleeping. Pt. stated she is happy her depakote was increased to 1500mg, adding she likes the size of the pills she is now getting. Pt. reports she is "glad to see some people leave [the unit]". Pt. reports her doctor stated she will need to get her other knee replaced. Pt. denied SI, HI, AVH and paranoia. Pt. stated she was rude when she first arrived and apologized to the staff. Pt. presents as sedated, calm, slurring her words at times, good eye contact, polite and cooperative. Staff report pt. sleeping 6.5 hours and being medication compliant. Date Signed: 06/03/2018 02:39 PM Electronically Signed By:Aleta Perez
--- NOTE | 2018-06-03 17:55 | SOAPPROG ---
SOAP Progress Note Assessment/Plan: Assessment: 58 yo with h/o bipolar disorder, last admission on [facility] was in 01/2018 when she received ECT. She was admitted after neighbors called police b/c patient refused to leave their home. She was brought into ED in handcuffs, agitated and combative. Per Dr. Hill's notes this week: 05/29/18 13:21 Mood: Gradual improvement. [facility]. 05/30/18 16:54 Mood: Continued improvement. [facility]. 05/31/18 13:52 Mood: Continued improvement with some continued lability. I do not see the delirium myself, but will remain vigilant. [facility]. 06/01/18 16:47 Mood: Looks a lot better today. Will increase VPA to 1500mg, monitor. Subjective: Pt seen, discussed with staff. Reports feeling "a lot better." Continues to sleep poorly. Asks to increase VPA to 1500mg, "That's the dose Dr. Garcia gives me when I'm manic." Thinking appears clearer today, less confusion. Events of last evening reviewed. Medical w/u noted. Dr Faria wrote for spironolactone for edema. PLAN: 06/03/18 17:50 1. Patient seems calmer, more conversational than last weekend. She appears sedated from meds throughout the course of the day. It's unclear whether the Tramadol or Ativan are having the most sedating effect. Other times, patient is quite clear and lucid. 2. Patient is ambulating without assistance from walker. She denies leg pain when MD asked. She is now on spironolactone for edema. 3. Patient has limited housing options since she refuses to stay with her BOC. 4. [facility] Subjective: Patient slept 6.5 hrs last night. She initially appeared quite sedated, heavy lidded and limited conversation this AM after she received pain meds and Ativan. However, when MD met with patient later in the day, she was quite lucid and coherent. Objective: Vital Signs Temp Pulse Resp BP Pulse Ox 36.9 C 108 H 12 110/66 94 06/03/18 04:26 06/03/18 04:26 06/03/18 04:26 06/03/18 04:26 06/03/18 04:26 Laboratory Results 05/29/18 06:20 05/31/18 16:25 MSE: Affect: Euthymic Mood: "OK" TP: Linear TC: Denies any SI/HI Perception : Denies any AH/VH Insight/Judgment: Improving - Time Spent With Patient Time Spent With Patient: 15" - Pending Discharge Pending Discharge Within 24 Hours: No Pending Discharge Within 48 Hours: No ICD10 Worksheet Patient Problems: Problems Problem Status Onset Altered mental status Acute Bipolar 1 disorder Acute
[2018-06-03] MEDS: DIVALPROEX ER 250 MG TAB PO SCH (19:45)
[2018-06-04] MEDS: traMADol 50 MG TAB PO PRN ×4 (01:45→19:40)
[2018-06-04] MEDS: NICOTINE POLACRILEX 2 MG GUM B PRN ×3 (09:54→18:33)
[2018-06-04] MEDS: SPIRONOLACTONE 25 MG TAB PO SCH (10:20)
[2018-06-04] MEDS: ACETAMINOPHEN 325 MG TAB PO PRN ×2 (12:05→18:27)
[2018-06-04] MEDS: LORazepam 0.5 MG TAB PO PRN ×2 (12:05→18:27)
--- NOTE | 2018-06-04 14:10 | ASMTCMCOM ---
CM Note CM Note Notes: Pt reports she is having a "rough day". Pt. stated she has developed a rash. Pt. stated she is not losing weight. Pt. stated she slept "good" adding she was "dreaming a little bit which is nice". Pt. reports eating well and attending groups. Pt. reports no issues with her current medication. Pt. stated she plans to call "[employer] and [employer]" about staying with one of them after discharge. Pt. stated she "haven't called because feel so lousy", adding "I want to call when I'm happy". Pt. stated she plans to call her friends later today. Pt. denied SI, HI, AVH and paranoia. Pt. presents as alert, upset, tearful at times, good eye contact, sitting in a wheelchair, and cooperative. Staff report pt. sleeping 6 hours and being medication compliant. Date Signed: 06/04/2018 02:10 PM Electronically Signed By:Aleta Perez
--- NOTE | 2018-06-04 16:10 | SOAPPROG ---
SOAP Progress Note Assessment/Plan: Assessment: 58 yo with h/o bipolar disorder, last admission on [facility] was in 01/2018 when she received ECT. She was admitted after neighbors called police b/c patient refused to leave their home. She was brought into ED in handcuffs, agitated and combative. Per Dr. Hill's notes this week: 05/29/18 13:21 Mood: Gradual improvement. [facility]. 05/30/18 16:54 Mood: Continued improvement. [facility]. 05/31/18 13:52 Mood: Continued improvement with some continued lability. I do not see the delirium myself, but will remain vigilant. [facility]. 06/01/18 16:47 Mood: Looks a lot better today. Will increase VPA to 1500mg, monitor. Subjective: Pt seen, discussed with staff. Reports feeling "a lot better." Continues to sleep poorly. Asks to increase VPA to 1500mg, "That's the dose Dr. Garcia gives me when I'm manic." Thinking appears clearer today, less confusion. Events of last evening reviewed. Medical w/u noted. Dr Faria wrote for spironolactone for edema. PLAN: 06/03/18 17:50 1. Patient seems calmer, more conversational than last weekend. She appears sedated from meds throughout the course of the day. It's unclear whether the Tramadol or Ativan are having the most sedating effect. Other times, patient is quite clear and lucid. 2. Patient is ambulating without assistance from walker. She denies leg pain when MD asked. She is now on spironolactone for edema. 3. Patient has limited housing options since she refuses to stay with her BOC. 4. [facility] PLAN: 06/04/18 16:06 1. Patient appears less sedated today. She is present in milieu watching TV with peers. 2. Patient c/o rash on her chest. Hospitalist notified. Spironolactone held. 3. Patient tearful and worried about where she will go after d/c. 4. [facility] Subjective: Staff report patient tearful this AM b/c she is worried about where she'll go when she leaves hospital. She doesn't want to stay with her BOC, but has no where else to go at this point. When MD talked to patient, her mood had improved. She was looking forward to visit from female friend this evening. She has several close friends, but says she isn't able to stay with any of them. Patient c/o rash on chest this AM, hospitalist to see. Objective: Vital Signs Temp Pulse Resp BP Pulse Ox 36.8 C 121 H 12 99/70 L 94 06/04/18 06:00 06/04/18 06:00 06/03/18 04:26 06/04/18 06:00 06/04/18 06:00 Laboratory Results 05/29/18 06:20 05/31/18 16:25 MSE: Affect: Euthymic mostly, tearful at times Mood: "OK" TP: Linear TC: Denies any SI/HI Insight/Judgment: Improved - Time Spent With Patient Time Spent With Patient: 15" - Pending Discharge Pending Discharge Within 24 Hours: No Pending Discharge Within 48 Hours: No ICD10 Worksheet Patient Problems: Problems Problem Status Onset Altered mental status Acute Bipolar 1 disorder Acute
[2018-06-04] MEDS ORDERED: FUROSEMIDE 20 MG TAB PO ONE (16:32)
[2018-06-04] MEDS: TRIAMCINOLONE 0.1% 15 GM CRTUBE TP PRN (18:50)
[2018-06-04] MEDS: DIVALPROEX ER 250 MG TAB PO SCH (19:12)
[2018-06-05] MEDS: traMADol 50 MG TAB PO PRN ×2 (02:04→09:37)
[2018-06-05] MEDS: NICOTINE POLACRILEX 2 MG GUM B PRN ×5 (02:08→16:13)
[2018-06-05] MEDS: LORazepam 0.5 MG TAB PO PRN ×2 (04:10→13:40)
[2018-06-05] MEDS: ACETAMINOPHEN 325 MG TAB PO PRN ×2 (04:11→13:40)
--- NOTE | 2018-06-05 04:59 | GCON ---
CHIEF COMPLAINT: Itching and rash. HISTORY OF PRESENT ILLNESS: The patient is a pleasant 58-year-old female with a past medical history of bipolar disorder and had a recent left knee replacement in [place], [place], who is currently adm itted to inpatient psychiatric unit, who developed itching and a rash. The itching is noted all over her body, but the rash that she has today is evident in her lower abdomen just below her umbilicus b ilateral. She was started on spironolactone approximately 3 days ago and that seemed to correspond w ith the development of the itching and rash. Spironolactone was started due to significant swelling of her lower extremity. She has had a recent lower extremity ultrasound as well as a CT angiography of the chest to evaluate for the possibility of thrombus causing the lower extremity edema, but these were both negative for thrombosis. PAST MEDICAL HISTORY: Bipolar disorder, status post ECT treatments. PAST SURGICAL HISTORY: Total left knee arthroplasty, right arm surgery, tubal ligation. MEDICATIONS: Current medications include acetaminophen 650 mg every 4 hours, Depakote 1500 mg nightl y, Lorazepam 0.5 to 1 mg every 4 hours as needed, nicotine gum, Zyprexa 10 mg every 4 hours as needed , spironolactone 25 mg daily, tramadol 50-100 mg every 6 hours as needed. ALLERGIES: [place]. FAMILY HISTORY: No history of thrombosis. SOCIAL HISTORY: Patient has recently been homeless. She is a smoker. REVIEW OF SYSTEMS: CONSTITUTIONAL: No reports of any fevers or chills. ENT: No recent upper respi ratory illnesses. CARDIOVASCULAR: No complaints of any chest pains, palpitations, or syncopal episo nitish. RESPIRATORY: No complaints of shortness of breath or productive cough. GI: No nausea or vomi ting. : No report of any difficulty with urination. NEUROLOGIC: No complaints of any headaches or focal weakness. HEMATOLOGIC: No prior history of deep vein thrombosis or pulmonary embolism. PS YCHIATRIC: Positive for bipolar disorder, currently in inpatient psych. ENDOCRINE: No history of p olyuria. SKIN: No history of prior skin rashes. MUSCULOSKELETAL: Recent left knee arthroplasty, o therwise no focal joint pains. PHYSICAL EXAM: VITAL SIGNS: Temperature 36.8, blood pressure 99/70, heart rate 121, respiratory rat e of 12, saturating 94% on room air. GENERAL: Patient appears comfortable. She is cooperative, joya ke, alert, conversant. HEENT: Extraocular movements appear intact. NECK: No thyroid enlargement a ppreciated. CHEST: Normal respiratory effort. ABDOMEN: Nondistended. EXTREMITIES: Generous sacha ing edema on both lower extremities, left is more prominent as compared to the right. SKIN: There i s a slightly raised, erythematous cluster of lesions in the bilateral lower abdomen. There are no bl istering lesions present, otherwise the areas of skin where she notices itching do not appear to have any sort of similar rash. LABS: Most recent comprehensive metabolic panel was on 05/31/2018, showed a sodium of 136, potassium 4.6, chloride 103, bicarb 25, BUN 11, creatinine of 0.6, glucose 103, AST 35, ALT 42, alkaline phosp hatase 59, bilirubin is 0.5. IMAGING: Lower extremity ultrasound from 05/25/2018, shows no deep vein thrombosis. CT angiography of the chest for pulmonary embolism on 05/31/2018, shows no pulmonary embolism. ASSESSMENT AND PLAN: 1. Rash. In reviewing potential side effects of spironolactone, it does list urticaria and pruritus as potential skin side effects, although I have never personally seen this in the past. For now, I recommend that we hold the spironolactone and use triamcinolone cream as needed 3 times a day. I wou ld anticipate this should resolve over the coming week. 2. Lower extremity edema. She has been evaluated for the potential for deep vein thrombosis and thi s workup has been negative. I recommend replacing the spironolactone with Lasix for now at 20 mg manasa ly along with potassium supplementation. I recommend doing this for 1 week and then stopping. Consi angela checking a metabolic panel in 3-4 days to evaluate potassium level. If swelling does not seem to improve, consider repeat lower extremity ultrasound for assessment. 3. Bipolar disorder. Continue per Psychiatry's recommendations. I appreciate the opportunity to help on this patient's case. Please call me with any questions. /[id number]/MODL
[2018-06-05] MEDS: FUROSEMIDE 20 MG TAB PO SCH (08:02)
[2018-06-05] MEDS: POTASSIUM CL 20 MEQ PKT PO SCH (08:03)
--- NOTE | 2018-06-05 12:49 | ASMTCMCOM ---
CM Note CM Note Notes: Client participated in treatment team meeting today with CW from [facility] and Dr. Garcia via phone. Client appears mostly pleasant, calm, tearful at times. Affect is appropriate towards situation. Client denies any feelings of Anxiety, Depression, AVH and/or S/I-H/I. Client reports sleeping 9 hours last night. Objectively client is making progress. CC spoke with CW regarding discharge planning. She is trying to get client a spot with the [facility] program; however, it is not looking good, thus client may discharge to the homeless senior care. Additionally, CC will help client pool numbers of friends she can call out of her cell phone in which she could poss. stay with post discharge, etc. No discharge date set for client. Date Signed: 06/05/2018 12:48 PM Electronically Signed By:Bobby Hughes
--- NOTE | 2018-06-05 15:49 | SOAPPROG ---
SOAP Progress Note Assessment/Plan: Assessment: Plan: 05/29/18 13:21 Mood: Gradual improvement. CCM. 05/30/18 16:54 Mood: Continued improvement. CCM. 05/31/18 13:52 Mood: Continued improvement with some continued lability. I do not see the delirium myself, but will remain vigilant. CCM. 06/01/18 16:47 Mood: Looks a lot better today. Will increase VPA to 1500mg, monitor. 06/05/18 15:50 Mood: Continued gradual improvement. CCM. VPA level tomorrow. Subjective: Pt seen, discussed with staff, chart reviewed. She is also interviewed in Treatment Team meeting with Linda, outpatient sample case porter from [facility]'s present in meeting and Dr. Garcia present by phone. Discussed treatment and discharge plans. Pt had a good weekend, though became upset at bedtime when she required assistance, stating, "I feel like a child having to be tucked in." Tearful when she discusses this. She participates actively in meeting. Able to identify numerous options for support at d/c and also states she could stay at the jail temporarily if needed. Rash has improved after d/c'ing spironolactone. Objective: Vital Signs Temp Pulse Resp BP Pulse Ox 36.4 C 101 H 16 112/57 L 95 06/05/18 06:00 06/05/18 06:00 06/05/18 06:00 06/05/18 06:00 06/05/18 06:00 Laboratory Results 05/29/18 06:20 05/31/18 16:25 MSE: Calm, coop. Affect is slightly blunted, stable, approp. Mood is "OK." TP linear. TC reveals no psychosis. - Time Spent With Patient Time Spent With Patient: 35" ICD10 Worksheet Patient Problems: Problems Problem Status Onset Altered mental status Acute Bipolar 1 disorder Acute
[2018-06-05] MEDS: DIVALPROEX ER 250 MG TAB PO SCH (18:02)
[2018-06-06] MEDS: traMADol 50 MG TAB PO PRN ×3 (01:16→18:31)
[2018-06-06] MEDS: ACETAMINOPHEN 325 MG TAB PO PRN ×3 (02:37→20:55)
[2018-06-06] MEDS: LORazepam 0.5 MG TAB PO PRN ×3 (02:37→20:54)
[2018-06-06] MEDS: POTASSIUM CL 20 MEQ PKT PO SCH (09:22)
[2018-06-06] MEDS: FUROSEMIDE 20 MG TAB PO SCH (09:22)
[2018-06-06] MEDS: NICOTINE POLACRILEX 2 MG GUM B PRN ×2 (09:40→18:32)
--- NOTE | 2018-06-06 14:49 | SOAPPROG ---
SOAP Progress Note Assessment/Plan: Assessment: Plan: 05/29/18 13:21 Mood: Gradual improvement. CCM. 05/30/18 16:54 Mood: Continued improvement. CCM. 05/31/18 13:52 Mood: Continued improvement with some continued lability. I do not see the delirium myself, but will remain vigilant. CCM. 06/01/18 16:47 Mood: Looks a lot better today. Will increase VPA to 1500mg, monitor. 06/05/18 15:50 Mood: Continued gradual improvement. CCM. VPA level tomorrow. 06/06/18 14:49 Mood: Doing well. CCM. Finalize d/c plan. Subjective: Pt seen, discussed with staff. Reports feeling "better" today. Encouraged by options for support after d/c. Has maintained stable level of functioning and cognition over the past few days. Ambulating well with no physical c/o's today. Compliant with all treatments. Objective: Vital Signs Temp Pulse Resp BP Pulse Ox 36.6 C 86 15 121/72 H 93 06/06/18 06:00 06/06/18 06:00 06/06/18 06:00 06/06/18 06:00 06/06/18 06:00 Laboratory Results 05/29/18 06:20 05/31/18 16:25 MSE: Calm, coop. Affect is restricted, though primarily euthymic. Mood is "pretty good." TP is linear. TC reveals no psychosis. No SI/HI/. - Time Spent With Patient Time Spent With Patient: 15" ICD10 Worksheet Patient Problems: Problems Problem Status Onset Altered mental status Acute Bipolar 1 disorder Acute
[2018-06-06] MEDS: DIVALPROEX ER 250 MG TAB PO SCH (20:04)
[2018-06-06] MEDS: OLANZapine DISINTEGR 10 MG TAB PO PRN (22:10)
[2018-06-07] MEDS: traMADol 50 MG TAB PO PRN ×4 (01:15→20:43)
[2018-06-07] MEDS: POTASSIUM CL 20 MEQ PKT PO SCH (08:24)
[2018-06-07] MEDS: FUROSEMIDE 20 MG TAB PO SCH (08:25)
[2018-06-07] MEDS: NICOTINE POLACRILEX 2 MG GUM B PRN ×2 (08:56→18:52)
--- NOTE | 2018-06-07 11:18 | ASMTCMCOM ---
CM Note CM Note Notes: CC called client's friend Ese Carbajal at to confirm a couple of things. Ese noted, that "she is going to stay with us for the next couple of weeks, when she is discharged from the hospital." Ese had no further questions or concerns at this moment for this CC. Date Signed: 06/07/2018 11:15 AM Electronically Signed By:Bobby Hughes
[2018-06-07] MEDS ORDERED: ARIPIPRAZOLE (ABILIFY MAINTENA) 400 MG VIAL IM ONE (11:58)
--- NOTE | 2018-06-07 14:26 | SOAPPROG ---
SOAP Progress Note Assessment/Plan: Assessment: Plan: 05/29/18 13:21 Mood: Gradual improvement. CCM. 05/30/18 16:54 Mood: Continued improvement. CCM. 05/31/18 13:52 Mood: Continued improvement with some continued lability. I do not see the delirium myself, but will remain vigilant. CCM. 06/01/18 16:47 Mood: Looks a lot better today. Will increase VPA to 1500mg, monitor. 06/05/18 15:50 Mood: Continued gradual improvement. CCM. VPA level tomorrow. 06/06/18 14:49 Mood: Doing well. CCM. Finalize d/c plan. 06/07/18 14:26 Mood: Continued stability. Will finalize d/c plan and proceed with d/c. CC will contact friends and go from there. Subjective: Pt seen, discussed with staff. She reports communicating with a friend ( couple) who have agreed to allow her to stay with them for 4-6 weeks until she is recuperated. She wants to leave the hospital immediately. I indicated to her that we need to finalize the d/c plan inc: mental and medical f /u's. She is reluctantly agreeable to this. Objective: Vital Signs Temp Pulse Resp BP Pulse Ox 36.8 C 101 H 16 106/71 92 06/07/18 06:00 06/07/18 06:00 06/07/18 06:00 06/07/18 06:00 06/07/18 06:00 Laboratory Results 05/29/18 06:20 05/31/18 16:25 MSE: Calm, coop. Affect is euthymic, stable, approp. Mood is "fine." TP is linear, goal-directed. TC reveals no psychosis. No SI/HI/. - Time Spent With Patient Time Spent With Patient: 15" ICD10 Worksheet Patient Problems: Problems Problem Status Onset Altered mental status Acute Bipolar 1 disorder Acute
[2018-06-07] MEDS: TRIAMCINOLONE 0.1% 15 GM CRTUBE TP PRN (19:26)
[2018-06-07] MEDS: DIVALPROEX ER 250 MG TAB PO SCH (20:43)
[2018-06-08] MEDS: LORazepam 0.5 MG TAB PO PRN ×2 (02:39→08:14)
[2018-06-08] MEDS: traMADol 50 MG TAB PO PRN ×2 (02:43→08:12)
[2018-06-08 06:51] VITALS: BP 122/59
[2018-06-08] MEDS: POTASSIUM CL 20 MEQ PKT PO SCH (08:13)
[2018-06-08] MEDS: ACETAMINOPHEN 325 MG TAB PO PRN (08:13)
[2018-06-08] MEDS: FUROSEMIDE 20 MG TAB PO SCH (08:29)
[2018-06-08] MEDS: NICOTINE POLACRILEX 2 MG GUM B PRN (09:10)
--- NOTE | 2018-06-08 10:27 | ASMTBHDC ---
Notes Note: Notes: CC was able to confirm client's follow up appts: [facility] [address], [facility] Next Medication Appt/ACT Team: June 13 at 8:30am with Dr. Garcia (at the [facility] location). Next Therapy Appt/ACT Team: June 13 (06/13/18) at 12:30pm at the [place] [facility] location, with Pia. [facility] [place] [id number] Next Appt: June 13 (06/13/18) at 10:05am with Liliya Nolan. Orthopedic Surgeon-Follow Up [address] [place], [place] [id number] Next Appt: June 19 (06/19/18) at 2:30pm with Dr. Riky Nicolas. Date Signed: 06/08/2018 10:27 AM Electronically Signed By:Bobby Hughes
--- NOTE | 2018-06-13 21:11 | BDS ---
REASON FOR ADMISSION: Patient is a 58-year-old female known to us from previous psychiatri c admissions with a history of severe bipolar disorder. She had most recently been with us from 01/22 12/07, to 03/25/18, for treatment of severe bipolar depression. She received ECT at that time. After leaving the hospital, she went to stay with her brother and then ultimately had a total knee replace ment on the 11 of May. She did poorly after that, not functioning well, and then becoming mor e paranoid. Ultimately, she was readmitted to the service for treatment of her acute paranoia and po ssible constantino. A full description of the events preceding admission can be found in her admission his tory dated 05/23/18. ADMITTING DIAGNOSES: Bipolar 1 disorder, most recent episode manic, severe with psychosis; chronic i llness; recurrent illness; marginal supports; recent total knee replacement; homelessness. ADMITTING PHYSICAL EXAMINATION: Performed by Oumou Hull showed tachycardia, anemia, though no acut e physical findings. ADMISSION LABORATORY: CBC showed a white count up at 10.55, H and H down at 10.8 and 32.5. Serum ch emistries were normal. Urine drug screen showed no substances of abuse. HOSPITAL COURSE: Patient was admitted to the [facility] inpatient unit on an M1 hold. She was irritable, paranoid, elevated, labile, and fairly unhappy about being in the hospital. She denied the existence of any acute mood phase and stated that she simply was having a problem with her brother. She talked very often about how she believes her brother mistreated her, disrespected her, and how she did not want to have contact with him again. I and staff encouraged her to reconsider t his as he was her only support, but apparently he also stated that he wanted to have nothing to do wi th her, and so this did not remain a viable option. I was in frequent contact with patient's outpati ent team through [facility], and it was agreed that she would restart Depakote. We did t his at 1000 mg and then ultimately increased to 1500 mg after continued insomnia and impulsive behavi ors as well as her labile mood. She tolerated the 1500 mg well and achieved a level of 93.7 on 06/06. She was also continued on the Abilify Maintena and received an injection during her stay. Patient's hospitalization was uncomplicated, though she did suffer some initial confusion that resolv ed. Later, she developed bilateral lower extremity edema and was started on Lasix and potassium supp lementation. This also then resolved. Patient participated actively in treatment planning, and kayode rd the end of her hospitalization, I was able to meet with the team, and her behavioral health case manager from the [facility] team, Linda, and have Dr. Garcia on the phone. We were able to discuss the plan for her care and discharge, and all were in agreement. Ultimately, the patient was able to talk with some friends, an d they stated she could stay with them for several weeks until she got her feet on the ground and fin ished her recovery. CONDITION AT DISCHARGE: Stable. Her affect was euthymic, stable, and appropriate. She was forward thinking and hopeful. She was displaying no acute psychosis, agitation, or aggression. She was slee ping through the night. Compliant with all her medications and tolerating them without side effects. DISCHARGE MEDICATIONS: Depakote ER 1500 mg p.o. q.h.s. Patient was given one hundred and eighty 250 mg tabs as she stated she could only take the 250 mg tab due to the size of the 500 mg tab. Lasix 2 0 mg daily. Potassium chloride 20 mEq daily. The patient is also to continue the aripiprazole/ Maintena 400 mg every 21 days. I do not have in front of me the date of her last injection her e, but it was approximately June 06. DISCHARGE DIAGNOSES: Bipolar 1 disorder, most recent episode mixed, severe, without psychosis; recen t knee replacement; homelessness; family conflicts. DISPOSITION: Patient left the hospital of her own accord to go to her friend's home. Followup is with [facility] team as scheduled by resident care aid. Patient i s given written instructions as to dates and times of the appointments at time of discharge. Patient's attitude at time of discharge was positive. Patient was converted to a short-term certification at the expiration of her M1 hold. Short-term cer tification was discontinued at time of her discharge. Patient was a full code throughout her stay. Patient was administered nicotine, alcohol, cannabis, and metabolic screenings. The patient did not meet criteria for followup of these. /[id number]/MODL
== END 2018-06-08 14:15 | disposition home or self-care (01) | DRG 885 ==
LOC: EDUNIT# → BBEH 09:30
PROVIDERS: ADMIT Psychiatry & Neurology Psychiatry; ATTEND Psychiatry & Neurology Psychiatry
DX: F31.2 Bipolar disorder, current episode manic severe with psychotic features (principal); R60.0 Localized edema; L27.0 Generalized skin eruption due to drugs and medicaments taken internally; T50.0X5A Adverse effect of mineralocorticoids and their antagonists, initial encounter; D64.9 Anemia, unspecified; R00.0 Tachycardia, unspecified; Z96.652 Presence of left artificial knee joint; Z59.0 Homelessness
CPT/HCPCS: 80305; 97110-GP; 97116-GP; 97162-GP; 97530-GP; G0480; J0401; J1630; J3486; Q9967